=== PATIENT | male | born 1945 | race African-American/Black ===

== ENCOUNTER 2016-10-04 12:58 | Emergency (ER) | payer MEDICARE ==
[2016-10-04 13:27] LABS: #Basophils 0.1 thou/uL (0.0-0.2); #Lymphocytes 1.5 thou/uL (1.20-3.40); #Monocytes 0.5 thou/uL (0.11-0.59); #Neutrophils 6.4 thou/uL (1.40-6.50); %Basophils 0.6 % (0.0-1.0); %Eosinophils 0.4 % (0.0-10.0); %Lymphocytes 17.1 % (21.0-51.0); %Monocytes 6.3 % (0.0-10.0); %Neutrophils 75.5 % (42.0-75.0); Hemoglobin 14.6 g/dL (14.0-18.0); Mean Corpuscular HGB CONC 32.6 g/dL (32.0-36.0); Mean Corpuscular Hemoglobin 31.5 pg (27.0-31.0); Mean Corpuscular Volume 96.8 fl (80.0-94.0); Mean Platelet Volume 8.1 fL (7.4-10.4); Platelet Count 189 thou/uL (130-400); RBC Distribution Width 14.2 % (11.5-14.5); Red Blood Cell (RBC) Count 4.63 mill/uL (4.70-6.10); White Blood Cell (WBC) Count 8.5 thou/uL (4.8-10.8)
[2016-10-04] MEDS ORDERED: Sodium Chloride 0.9% 1,000 ML ONE (13:28)
[2016-10-04 13:46] LABS: ALT (SGPT) 15 U/L (0-55); AST (SGOT) 19 U/L (5-34); Albumin 3.5 g/dL (3.4-4.8); Alkaline Phosphatase 83 U/L (40-150); Anion Gap 15 mmol/L (10-20); BUN (Urea Nitrogen) 12 mg/dL (8.4-25.7); Bilirubin, Total 1.1 mg/dL (0.2-1.2); CK (CPK) 232 U/L (30-200); Calc. Creatinine Clearance 0 mL/min (70-130); Calcium 8.5 mg/dL (7.8-10.44); Carbon Dioxide 22 mmol/L (23-31); Chloride 107 mmol/L (98-107); Estimated GFR-MDRD 71; Globulin 4.3 g/dL (2.4-3.5); Glucose 218 mg/dL (83-110); Potassium 3.3 mmol/L (3.5-5.1); Protein, Total 7.8 g/dL (5.8-8.1); Sodium 141 mmol/L (136-145)
[2016-10-04 13:47] LABS: CKMB 3.1 ng/mL (0-6.6); Troponin I 0.058 ng/mL (< 0.028)
--- NOTE | 2016-10-04 14:08 | RAD ---
PORTABLE UPRIGHT FRONTAL CHEST RADIOGRAPH: DATE: 10/04/16. COMPARISON: None. HISTORY: Difficulty breathing, bilateral foot swelling. FINDINGS: Cardiac silhouette is enlarged. The patient is imaged in a lordotic position. There is increased d ensity in the right paratracheal region, nonspecific. There is elevation of the right hemidiaphragm . No lobar consolidation or alveolar edema. IMPRESSION: 1. Prominent cardiac silhouette which may be secondary to cardiac enlargement and/or portable techn ique and patient body habitus/patient positioning. 2. Elevated right hemidiaphragm. 3. Soft tissue density seen in the right paratracheal region. This could represent a right paratra cheal mass or vascular prominence. Thus, PA and lateral chest imaging with better inspiration advis ed. CODE T POS: [facility]
[2016-10-04] MEDS ORDERED: Furosemide 40 MG/4 ML VIAL ONE (15:35)
[2016-10-04 16:19] LABS: Bilirubin Negative (Negative); Blood, Urine Moderate (Negative); Clarity Clear (Clear); Glucose, Urine (Dipstick) Negative (Negative); Leukocyte Negative (Negative); Nitrite Negative (Negative); Protein, Urine (Dipstick) 30 mg/dL (Neg-Trace); pH, Urine 5.5 (5.0-9.0)
[2016-10-04 16:20] LABS: Specific Gravity, Urine 1.006 (1.002-1.036)
[2016-10-04 16:25] LABS: Squamous Epithelial None Seen HPF (0-3); WBC/HPF None Seen HPF (0-3)
[2016-10-04 16:26] LABS: Bacteria/HPF Rare-Few HPF (None Seen)
--- NOTE | 2016-10-04 16:42 | CT ---
CT PULMONARY ANGIOGRAM: Date: 10/04/16 HISTORY: Elevated D-Dimer. FINDINGS: The peripheral pulmonary arterial vasculature cannot be satisfactorily evaluated due to artifact and inadequate opacification. No filling defects are seen in the central pulmonary arteries to suggest central pulmonary embolism. No pericardial or left pleural effusions are noted. There is a tiny righ t pleural effusion with adjacent infiltrate/atelectatic change. No pneumothoraces are seen. There ar e degenerative changes in the spine. The heart is enlarged. IMPRESSION: No CT evidence of central pulmonary embolism. POS: [facility]
== END 2016-10-04 17:08 | disposition short-term general hospital (02) ==
LOC: NAV ERS 12:58
DX: I11.0 Hypertensive heart disease with heart failure (principal); I50.9 Heart failure, unspecified; E11.65 Type 2 diabetes mellitus with hyperglycemia; F17.210 Nicotine dependence, cigarettes, uncomplicated; Z79.899 Other long term (current) drug therapy
CPT/HCPCS: 36416; 71010; 71275; 80053; 81003; 81015; 82550; 82553; 83880; 84484; 85025; 85379; 93005; 96361; 96374; J1940; J7050

== ENCOUNTER 2016-10-17 07:33 | Outpatient (CLI) | payer MEDICARE ==
[2016-10-17 08:52] LABS: #Lymphocytes 1.7 thou/uL (1.20-3.40); #Monocytes 0.5 thou/uL (0.11-0.59); #Neutrophils 3.3 thou/uL (1.40-6.50); %Basophils 0.6 % (0.0-1.0); %Eosinophils 0.8 % (0.0-10.0); %Lymphocytes 30.9 % (21.0-51.0); %Monocytes 9.1 % (0.0-10.0); %Neutrophils 58.6 % (42.0-75.0); Hemoglobin 13.9 g/dL (14.0-18.0); Mean Corpuscular HGB CONC 32.7 g/dL (32.0-36.0); Mean Corpuscular Hemoglobin 31.3 pg (27.0-31.0); Mean Corpuscular Volume 95.9 fl (80.0-94.0); Mean Platelet Volume 9.2 fL (7.4-10.4); Platelet Count 200 thou/uL (130-400); RBC Distribution Width 13.4 % (11.5-14.5); Red Blood Cell (RBC) Count 4.42 mill/uL (4.70-6.10); White Blood Cell (WBC) Count 5.6 thou/uL (4.8-10.8)
[2016-10-17 09:02] LABS: ALT (SGPT) 19 U/L (8-55); AST (SGOT) 21 U/L (5-34); Albumin 3.3 g/dL (3.4-4.8); Alkaline Phosphatase 70 U/L (40-150); Anion Gap 13 mmol/L (10-20); BUN (Urea Nitrogen) 11 mg/dL (8.4-25.7); Bilirubin, Total 0.6 mg/dL (0.2-1.2); Calc. Creatinine Clearance 0 mL/min (70-130); Calcium 8.7 mg/dL (7.8-10.44); Carbon Dioxide 24 mmol/L (23-31); Cardiac Risk 2.9 (Less than 4.5); Chloride 106 mmol/L (98-107); Cholesterol 114 mg/dL (< 200 Desired); Estimated GFR-MDRD Greater than 90; Globulin 3.1 g/dL (2.4-3.5); Glucose 101 mg/dL (83-110); HDL Cholesterol 39 mg/dL (>60 Neg Risk); LDL Cholesterol, Calculated 64 mg/dL; Protein, Total 6.4 g/dL (5.8-8.1); Sodium 139 mmol/L (136-145); Triglycerides 57 mg/dL (Less than 150)
== END 2016-10-17 07:34 | disposition home or self-care (01) ==
LOC: NAV LABSP 07:33
PROVIDERS: ATTEND Family Medicine
DX: Z12.5 Encounter for screening for malignant neoplasm of prostate (principal); K21.0 Gastro-esophageal reflux disease with esophagitis; E11.9 Type 2 diabetes mellitus without complications; I10 Essential (primary) hypertension; I50.9 Heart failure, unspecified
CPT/HCPCS: 36415; 80053; 80061; 83036; 85025; G0103

== ENCOUNTER 2016-10-22 07:48 | Outpatient (CLI) | payer MEDICARE ==
[2016-10-22 10:12] LABS: Anion Gap 14 mmol/L (10-20); BUN (Urea Nitrogen) 10 mg/dL (8.4-25.7); Calc. Creatinine Clearance 0 mL/min (70-130); Calcium 8.7 mg/dL (7.8-10.44); Carbon Dioxide 23 mmol/L (23-31); Chloride 108 mmol/L (98-107); Estimated GFR-MDRD Greater than 90; Glucose 99 mg/dL (83-110); Potassium 3.8 mmol/L (3.5-5.1); Sodium 141 mmol/L (136-145)
== END 2016-10-22 07:49 | disposition home or self-care (01) ==
LOC: NAV LABSP 07:48
PROVIDERS: ATTEND Family Medicine
DX: I11.0 Hypertensive heart disease with heart failure (principal); I50.9 Heart failure, unspecified; E11.9 Type 2 diabetes mellitus without complications; K21.9 Gastro-esophageal reflux disease without esophagitis
CPT/HCPCS: 36415; 80048

== ENCOUNTER 2016-10-30 08:25 | Outpatient (CLI) | payer MEDICARE ==
[2016-10-30 10:53] LABS: Blood, Urine Moderate (Negative); Clarity Clear (Clear); Glucose, Urine (Dipstick) Negative (Negative); Leukocyte Negative (Negative); Nitrite Negative (Negative); Protein, Urine (Dipstick) 30 mg/dL (Neg-Trace); Specific Gravity, Urine 1.025 (1.005-1.030); Urobilinogen > or = 8.0 mg/dL (0.2-1.0); pH, Urine 6.5 (5.0-9.0)
[2016-10-30 11:26] LABS: Bilirubin Negative (Negative); Icto Negative (Negative)
[2016-10-30 11:27] LABS: Bacteria/HPF Rare-Few HPF (None Seen); RBC/HPF 21-50 HPF (0-3); Squamous Epithelial 0-3 HPF (0-3); WBC/HPF 0-3 HPF (0-3)
== END 2016-10-30 08:26 | disposition home or self-care (01) ==
LOC: NAV LABSP 08:25
PROVIDERS: ATTEND Family Medicine
DX: R32 Unspecified urinary incontinence (principal)
CPT/HCPCS: 81001; 87086

== ENCOUNTER 2016-11-19 07:46 | Outpatient (CLI) | payer MEDICARE ==
[2016-11-19 08:19] LABS: ALT (SGPT) 18 U/L (8-55); AST (SGOT) 17 U/L (5-34); Albumin 3.8 g/dL (3.4-4.8); Alkaline Phosphatase 82 U/L (40-150); Anion Gap 17 mmol/L (10-20); BUN (Urea Nitrogen) 18 mg/dL (8.4-25.7); Bilirubin, Total 0.5 mg/dL (0.2-1.2); Calc. Creatinine Clearance 0 mL/min (70-130); Calcium 8.9 mg/dL (7.8-10.44); Carbon Dioxide 23 mmol/L (23-31); Chloride 106 mmol/L (98-107); Estimated GFR-MDRD Greater than 90; Globulin 3.4 g/dL (2.4-3.5); Glucose 93 mg/dL (83-110); Potassium 3.9 mmol/L (3.5-5.1); Protein, Total 7.2 g/dL (5.8-8.1); Sodium 142 mmol/L (136-145)
[2016-11-19 08:21] LABS: #Basophils 0.1 thou/uL (0.0-0.2); #Lymphocytes 2.4 thou/uL (1.20-3.40); #Monocytes 0.7 thou/uL (0.11-0.59); #Neutrophils 4.7 thou/uL (1.40-6.50); %Basophils 0.9 % (0.0-1.0); %Eosinophils 0.5 % (0.0-10.0); %Lymphocytes 30.1 % (21.0-51.0); %Monocytes 8.6 % (0.0-10.0); Hemoglobin 14.8 g/dL (14.0-18.0); Mean Corpuscular HGB CONC 33.2 g/dL (32.0-36.0); Mean Corpuscular Hemoglobin 30.4 pg (27.0-31.0); Mean Corpuscular Volume 91.5 fl (80.0-94.0); Mean Platelet Volume 7.3 fL (7.4-10.4); Platelet Count 201 thou/uL (130-400); RBC Distribution Width 12.3 % (11.5-14.5); Red Blood Cell (RBC) Count 4.87 mill/uL (4.70-6.10); White Blood Cell (WBC) Count 7.9 thou/uL (4.8-10.8)
== END 2016-11-19 07:47 | disposition home or self-care (01) ==
LOC: NAV LABSP 07:46
PROVIDERS: ATTEND Family Medicine
DX: I50.9 Heart failure, unspecified (principal); E11.9 Type 2 diabetes mellitus without complications
CPT/HCPCS: 36415; 80053; 85025

== ENCOUNTER 2018-03-18 17:24 | Emergency (ER) | payer MEDICARE ==
[2018-03-18 19:28] LABS: #Basophils 0.1 thou/uL (0.0-0.2); #Lymphocytes 2.2 thou/uL (1.20-3.40); #Monocytes 0.7 thou/uL (0.11-0.59); #Neutrophils 5.7 thou/uL (1.40-6.50); %Basophils 1.2 % (0.0-1.0); %Eosinophils 0.2 % (0.0-10.0); %Monocytes 8.1 % (0.0-10.0); %Neutrophils 65.4 % (42.0-75.0); Hemoglobin 13.7 g/dL (14.0-18.0); Mean Corpuscular HGB CONC 32.3 g/dL (32.0-36.0); Mean Corpuscular Hemoglobin 30.4 pg (27.0-31.0); Mean Corpuscular Volume 94.3 fL (78.0-98.0); Mean Platelet Volume 7.6 fL (7.4-10.4); Platelet Count 273 thou/uL (130-400); RBC Distribution Width 13.1 % (11.5-14.5); Red Blood Cell (RBC) Count 4.52 mill/uL (4.70-6.10); White Blood Cell (WBC) Count 8.8 thou/uL (4.8-10.8)
[2018-03-18 19:54] LABS: CKMB 1.1 ng/mL (0-6.6)
--- NOTE | 2018-03-18 20:12 | CT ---
CT OF HEAD NONCONTRAST: 03/18/18 INDICATION: Altered mental status. FINDINGS: There is mild prominence of ventricular system due to parenchymal volume loss. There is mild chronic microvascular ischemic disease. No intracranial hemorrhage, mass effect or midline shift. No acute fl uid level of the paranasal sinuses. IMPRESSION: No acute intracranial abnormalities. POS: [facility]
[2018-03-18 20:14] LABS: ALT (SGPT) 11 U/L (8-55); AST (SGOT) 13 U/L (5-34); Albumin 4.3 g/dL (3.4-4.8); Alkaline Phosphatase 64 U/L (40-150); Anion Gap 16 mmol/L (10-20); BUN (Urea Nitrogen) 16 mg/dL (8.4-25.7); Bilirubin, Total 0.4 mg/dL (0.2-1.2); Calc. Creatinine Clearance 0 mL/min (70-130); Calcium 9.7 mg/dL (7.8-10.44); Carbon Dioxide 25 mmol/L (23-31); Chloride 104 mmol/L (98-107); Estimated GFR-MDRD 60; Globulin 3.5 g/dL (2.4-3.5); Glucose 140 mg/dL (83-110); Potassium 4.9 mmol/L (3.5-5.1); Protein, Total 7.8 g/dL (5.8-8.1); Sodium 140 mmol/L (136-145)
[2018-03-18] MEDS ORDERED: Sodium Chloride 0.9% 500 ML ONE (20:16)
[2018-03-18 20:30] LABS: Bilirubin Moderate (Negative); Blood, Urine Trace (Negative); Clarity Clear (Clear); Glucose, Urine (Dipstick) Negative (Negative); Leukocyte Negative (Negative); Nitrite Negative (Negative); Protein, Urine (Dipstick) 100 mg/dL (Neg-Trace)
[2018-03-18 20:38] LABS: Specific Gravity, Urine Greater/Equal 1.030 (1.005-1.030)
[2018-03-18 20:48] LABS: RBC/HPF 0-3 HPF (0-3)
[2018-03-18 20:49] LABS: Bacteria/HPF Rare-Few HPF (None Seen); WBC/HPF 0-3 HPF (0-3)
[2018-03-18 20:50] LABS: Squamous Epithelial 21-50 HPF (0-3)
== END 2018-03-18 21:12 | disposition short-term general hospital (02) ==
LOC: NAV ERS 17:24
DX: R41.82 Altered mental status, unspecified (principal); E11.9 Type 2 diabetes mellitus without complications; I10 Essential (primary) hypertension; F03.90 Unspecified dementia, unspecified severity, without behavioral disturbance, psychotic disturbance, mood disturbance, and anxiety; F17.210 Nicotine dependence, cigarettes, uncomplicated; Z79.84 Long term (current) use of oral hypoglycemic drugs; Z79.899 Other long term (current) drug therapy; Z86.73 Personal history of transient ischemic attack (TIA), and cerebral infarction without residual deficits
CPT/HCPCS: 70450; 80053; 81003; 81015; 82553; 83605; 84484; 85025; 93005; 96360; J7050

== ENCOUNTER 2018-03-19 23:11 | Emergency (ER) | payer MEDICARE ==
[2018-03-20 00:37] LABS: #Basophils 0.1 thou/uL (0.0-0.2); #Lymphocytes 1.2 thou/uL (1.20-3.40); #Monocytes 0.7 thou/uL (0.11-0.59); #Neutrophils 10.9 thou/uL (1.40-6.50); %Basophils 0.8 % (0.0-1.0); %Lymphocytes 8.9 % (21.0-51.0); %Monocytes 5.4 % (0.0-10.0); %Neutrophils 84.9 % (42.0-75.0); Hemoglobin 13.7 g/dL (14.0-18.0); Mean Corpuscular HGB CONC 32.8 g/dL (32.0-36.0); Mean Corpuscular Hemoglobin 30.6 pg (27.0-31.0); Mean Corpuscular Volume 93.3 fL (78.0-98.0); Mean Platelet Volume 8.3 fL (7.4-10.4); Platelet Count 262 thou/uL (130-400); RBC Distribution Width 13.5 % (11.5-14.5); Red Blood Cell (RBC) Count 4.46 mill/uL (4.70-6.10); White Blood Cell (WBC) Count 12.9 thou/uL (4.8-10.8)
[2018-03-20 01:40] LABS: ALT (SGPT) 12 U/L (8-55); AST (SGOT) 16 U/L (5-34); Albumin 4.4 g/dL (3.4-4.8); Alkaline Phosphatase 62 U/L (40-150); Anion Gap 14 mmol/L (10-20); BUN (Urea Nitrogen) 17 mg/dL (8.4-25.7); Bilirubin, Total 0.5 mg/dL (0.2-1.2); Calc. Creatinine Clearance 0 mL/min (70-130); Calcium 9.9 mg/dL (7.8-10.44); Carbon Dioxide 23 mmol/L (23-31); Chloride 103 mmol/L (98-107); Estimated GFR-MDRD 57; Globulin 3.6 g/dL (2.4-3.5); Glucose 189 mg/dL (83-110); Potassium 4.2 mmol/L (3.5-5.1); Sodium 136 mmol/L (136-145)
[2018-03-20] MEDS ORDERED: Mag-Al Plus 1200 MG/1200 MG/120 MG/30 ML UDCUP ONE (02:25)
== END 2018-03-20 02:40 | disposition short-term general hospital (02) ==
LOC: NAV ERS 23:11
DX: R41.82 Altered mental status, unspecified (principal); E11.9 Type 2 diabetes mellitus without complications; I10 Essential (primary) hypertension; F17.210 Nicotine dependence, cigarettes, uncomplicated; F03.90 Unspecified dementia, unspecified severity, without behavioral disturbance, psychotic disturbance, mood disturbance, and anxiety; Z86.73 Personal history of transient ischemic attack (TIA), and cerebral infarction without residual deficits; Z79.84 Long term (current) use of oral hypoglycemic drugs; Z79.899 Other long term (current) drug therapy
CPT/HCPCS: 36416; 80053; 84443; 85025

== ENCOUNTER 2019-02-25 11:44 | Emergency (ER) | payer MEDICARE ==
[2019-02-25 12:22] LABS: #Basophils 0.1 thou/uL (0.0-0.2); #Eosinphils 0.1 thou/uL (0.0-0.7); #Lymphocytes 2.2 thou/uL (1.20-3.40); #Monocytes 0.6 thou/uL (0.11-0.59); #Neutrophils 6.8 thou/uL (1.40-6.50); %Basophils 0.7 % (0.0-1.0); %Eosinophils 0.6 % (0.0-10.0); %Monocytes 5.8 % (0.0-10.0); %Neutrophils 69.8 % (42.0-75.0); Hemoglobin 12.6 g/dL (14.0-18.0); Mean Corpuscular HGB CONC 32.8 g/dL (32.0-36.0); Mean Corpuscular Hemoglobin 29.8 pg (27.0-31.0); Mean Corpuscular Volume 91.1 fL (78.0-98.0); Mean Platelet Volume 6.4 fL (7.4-10.4); Platelet Count 294 thou/uL (130-400); RBC Distribution Width 13.3 % (11.5-14.5); Red Blood Cell (RBC) Count 4.22 mill/uL (4.70-6.10); White Blood Cell (WBC) Count 9.7 thou/uL (4.8-10.8)
--- NOTE | 2019-02-25 12:24 | RAD ---
XR Pelvis AP STANDARD History: Trauma Comparison: None. Findings: Dense vascular calcifications. Ossification of the right iliopsoas tendon. Capsular calcifi cations of the left hip. High-grade enthesopathic changes of both greater trochanters. Advanced degenerative disease both SI j oints and moderate degenerative disease of the pubic symphysis. Enthesopathy of the ischium. Impression: Degenerative changes. No acute osseous abnormality.
[2019-02-25 12:36] LABS: ALT (SGPT) 11 U/L (8-55); AST (SGOT) 12 U/L (5-34); Albumin 4.1 g/dL (3.4-4.8); Alkaline Phosphatase 72 U/L (40-150); Anion Gap 17 mmol/L (10-20); BUN (Urea Nitrogen) 32 mg/dL (8.4-25.7); Bilirubin, Total 0.4 mg/dL (0.2-1.2); Calc. Creatinine Clearance 0 mL/min (70-130); Calcium 9.3 mg/dL (7.8-10.44); Carbon Dioxide 22 mmol/L (23-31); Chloride 103 mmol/L (98-107); Estimated GFR-MDRD 76; Globulin 3.8 g/dL (2.4-3.5); Glucose 167 mg/dL (83-110); Potassium 3.3 mmol/L (3.5-5.1); Protein, Total 7.9 g/dL (5.8-8.1); Sodium 139 mmol/L (136-145)
--- NOTE | 2019-02-25 13:38 | RAD ---
LEFT FEMUR 2 VIEWS: HISTORY: Pain. The patient fell yesterday. Trauma. FINDINGS: There is enthesopathic change involving the mid lateral diaphysis of the left femur. Fracture, corti wojciech irregularity is not appreciated. On the lateral aspect of the diaphysis, there is periosteal jillian nge with remodeling and subtle lucency. On the oblique projection there is prominent bony excrescence . Nonspecific calcification in the medial soft tissues. Vascular calcifications are identified. IMPRESSION: Nonspecific calcifications of the medial soft tissues as well as the lateral aspect of the diaphysis. 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 Examination reviewed in conjunction with Dr. Levine. POS: [facility]
== END 2019-02-25 14:44 | disposition home or self-care (01) ==
LOC: NAV ERS 11:44
DX: I48.91 Unspecified atrial fibrillation (principal); E87.6 Hypokalemia; M25.552 Pain in left hip; G89.18 Other acute postprocedural pain; R10.2 Pelvic and perineal pain; E11.9 Type 2 diabetes mellitus without complications; I10 Essential (primary) hypertension; F03.90 Unspecified dementia, unspecified severity, without behavioral disturbance, psychotic disturbance, mood disturbance, and anxiety; E78.5 Hyperlipidemia, unspecified; Z86.73 Personal history of transient ischemic attack (TIA), and cerebral infarction without residual deficits; F20.9 Schizophrenia, unspecified; Z79.899 Other long term (current) drug therapy; Z79.84 Long term (current) use of oral hypoglycemic drugs
CPT/HCPCS: 72170; 80053; 84484; 85025; 93005; 96374

== ENCOUNTER 2019-04-26 11:47 | Outpatient (CLI) | payer MEDICARE ==
--- NOTE | 2019-04-26 12:12 | RAD ---
EXAM: Chest PA and lateral: HISTORY: Dyspnea on exertion COMPARISON: 10/04/2016 FINDINGS: Heart: Normal cardiac silhouette Aorta: Atherosclerosis of the aortic knob. Slight elongation of the descending thoracic aorta Pulmonary vessels: Normal Costophrenic angles: Costophrenic angles are clear. Lungs: Diffuse interstitial and alveolar opacities. Elevation right hemidiaphragm Pneumothorax: No pneumothorax Osseous structures: No osseous abnormalities IMPRESSION: Diffuse interstitial and alveolar opacities. Correlate for edema or infiltrate.
== END 2019-04-26 11:48 | disposition home or self-care (01) ==
LOC: NAV RAD 11:47
PROVIDERS: ATTEND Nurse Practitioner Adult Health
DX: R06.09 Other forms of dyspnea (principal); R91.8 Other nonspecific abnormal finding of lung field
CPT/HCPCS: 71046; 71275; 81003; 81015; 83605; 83880; 84484; 87040; 87086; 93005; J0456; J0696; J1940; J3490; J7050; Q9967

== ENCOUNTER 2019-04-26 16:31 | Emergency (ER) | payer MEDICARE ==
[~2019-04-26 16:31] MED LIST: Iopamidol 370 76% 100 ML VIAL ONE
[2019-04-26] MEDS ORDERED: Furosemide 40 MG/4 ML VIAL ONE (17:05)
[2019-04-26 17:23] LABS: #Basophils 0.1 thou/uL (0.0-0.2); #Lymphocytes 1.9 thou/uL (1.20-3.40); #Monocytes 0.9 thou/uL (0.11-0.59); %Basophils 1.1 % (0.0-1.0); %Eosinophils 0.3 % (0.0-10.0); %Monocytes 8.2 % (0.0-10.0); %Neutrophils 73.3 % (42.0-75.0); Hemoglobin 11.5 g/dL (14.0-18.0); Mean Corpuscular HGB CONC 32.9 g/dL (32.0-36.0); Mean Corpuscular Hemoglobin 30.3 pg (27.0-31.0); Platelet Count 283 thou/uL (130-400); RBC Distribution Width 13.9 % (11.5-14.5); Red Blood Cell (RBC) Count 3.79 mill/uL (4.70-6.10); White Blood Cell (WBC) Count 10.9 thou/uL (4.8-10.8)
[2019-04-26 17:35] LABS: ALT (SGPT) 28 U/L (8-55); AST (SGOT) 27 U/L (5-34); Alkaline Phosphatase 109 U/L (40-110); Anion Gap 20 mmol/L (10-20); BUN (Urea Nitrogen) 16 mg/dL (8.4-25.7); Bilirubin, Total 0.7 mg/dL (0.2-1.2); Calc. Creatinine Clearance 0 mL/min (70-130); Calcium 8.4 mg/dL (7.8-10.44); Carbon Dioxide 20 mmol/L (23-31); Chloride 100 mmol/L (98-107); Estimated GFR-MDRD 70; Globulin 3.8 g/dL (2.4-3.5); Glucose 152 mg/dL (83-110); Potassium 3.6 mmol/L (3.5-5.1); Protein, Total 7.8 g/dL (5.8-8.1); Sodium 136 mmol/L (136-145)
[2019-04-26] MEDS ORDERED: Sodium Chloride 0.9% 100 ML ONE (18:53)
[2019-04-26] MEDS ORDERED: cefTRIAXone\\ROCEPHIN 2 GM VIAL ONE (18:53)
[2019-04-26 19:41] LABS: Bilirubin Negative (Negative); Blood, Urine Trace (Negative); Clarity Clear (Clear); Glucose, Urine (Dipstick) Negative (Negative); Leukocyte Negative (Negative); Nitrite Negative (Negative); Protein, Urine (Dipstick) Negative (Neg-Trace); Urobilinogen 0.2 mg/dL (Less than 2)
[2019-04-26 19:48] LABS: RBC/HPF 0-3 HPF (0-3); Squamous Epithelial 0-3 HPF (0-3)
--- NOTE | 2019-04-26 19:52 | CT ---
CT arteriogram chest with IV contrast and 3-D imaging HISTORY: Chest pain. Dyspnea. Hemoptysis. FINDINGS: There is good contrast opacification the central pulmonary arteries and the thoracic aorta with normal branching of the great vessels at the aortic arch. Dense bilateral upper lobe predominantly central infiltrates are present. Airways remain patent. Atelectasis of the right barratte operator ior lung base with elevation of the right hemidiaphragm. No pleural fluid or pneumothorax. No enlarged lymph nodes are evident. IMPRESSION: No CT evidence of pulmonary embolus. Bilateral upper lobe central airspace disease. A nonspecific finding. In the setting of hemoptysis, t his could represent blood, although the origin is not evident. Inflammation/infection must also be considered.
[2019-04-26] MEDS ORDERED: Azithromycin 500 MG VIAL ONE (23:13)
[2019-04-26] MEDS ORDERED: Sodium Chloride 0.9% 250 ML 250 ML ONE (23:13)
== END 2019-04-26 20:39 | disposition short-term general hospital (02) ==
LOC: NAV ERS 16:31
DX: A41.9 Sepsis, unspecified organism (principal); R91.8 Other nonspecific abnormal finding of lung field; E11.9 Type 2 diabetes mellitus without complications; I10 Essential (primary) hypertension; E78.5 Hyperlipidemia, unspecified; Z79.899 Other long term (current) drug therapy
CPT/HCPCS: 71275; 81003; 81015; 83605; 83880; 84484; 87040; 87086; 93005; J0456; J0696; J1940; J3490; J7050

== ENCOUNTER 2019-05-05 15:10 | Inpatient (IN) | payer MEDICARE ==
[2019-05-05 15:25] VITALS: BMI 25.9
[2019-05-05] MEDS ORDERED: Acetaminophen 325 MG TAB PO PRN (18:47)
[2019-05-05] MEDS: metFORMIN 500 MG TAB PO SCH (19:59)
[2019-05-05] MEDS: Apixaban 5 MG TAB PO SCH (19:59)
[2019-05-05] MEDS: clonazePAM 0.5 MG TAB PO SCH (19:59)
[2019-05-05] MEDS: Metoprolol Tartrate 50 MG TAB PO SCH (19:59)
[2019-05-05] MEDS: Carvedilol 6.25 MG TAB PO SCH (19:59)
[2019-05-06] MEDS: Furosemide 40 MG TAB PO SCH (08:06)
[2019-05-06] MEDS: Atorvastatin Calcium 20 MG TAB PO SCH (09:06)
[2019-05-06] MEDS: Amiodarone 200 MG TAB PO SCH (09:06)
[2019-05-06] MEDS: clonazePAM 0.5 MG TAB PO SCH ×2 (09:07→19:49)
[2019-05-06] MEDS: Carvedilol 6.25 MG TAB PO SCH ×2 (09:07→19:49)
[2019-05-06] MEDS: Pioglitazone HCl 15 MG TAB PO SCH (09:07)
[2019-05-06] MEDS: metFORMIN 500 MG TAB PO SCH ×2 (09:08→19:50)
[2019-05-06] MEDS: Amlodipine 5 MG TAB PO SCH (09:08)
[2019-05-06] MEDS: Metoprolol Tartrate 50 MG TAB PO SCH (09:08)
[2019-05-06] MEDS: Losartan 25 MG TAB PO SCH (09:08)
[2019-05-06] MEDS: Apixaban 5 MG TAB PO SCH ×2 (09:08→19:49)
[2019-05-06] MEDS ORDERED: FLU VACC QS2019-20(6MOS UP)/PF 60 MCG/0.5 ML SYRINGE IM ONE (16:30)
[2019-05-06] MEDS ORDERED: Aripiprazole 10 MG TAB PO SCH (16:45)
--- NOTE | 2019-05-06 19:20 | HP ---
CHIEF COMPLAINT: Recent admission to the hospital for pneumonia, here for therapy. BRIEF HISTORY: This is a pleasant 74-year-old male, who was admitted to [facility] on April 26 with productive cough and shortness of breath. His workup was consistent with bilateral upper lobe airway disease suggesting pneumonitis and was treated with IV antibiotics. He also was hypoxemic requiring oxygen as well as breathing treatments. He was seen by Pulmonary and he was slowly transitioned to oral antibiotics. He was weak and was felt to be a candidate for inpatient rehabilitation, so transferred here. Currently, the patient is resting in bed and denies any concerns. His son is in the room. He apparently has been having some combative behavior and this happened in the past when Dr. Santana started him on Abilify, which really helped. For some reason, he was taken off the Abilify and now son is noticing the same issues. I advised him that I will review the office records and get him back on the Abilify. Currently, he is off the oxygen and he is saturating well. The patient denies any chest pain or shortness of breath, and other than weakness, no other concerns or questions. PAST MEDICAL HISTORY: 1. Diabetes mellitus type 2. 2. Hypertension. 3. Dyslipidemia. 4. Gastroesophageal reflux disease. 5. Atrial fibrillation. 6. Chronic systolic congestive heart failure. 7. Dementia. PAST SURGICAL HISTORY: Exploratory laparotomy. PSYCHOSOCIAL HISTORY: Smoker, but just recently. Used to drink alcohol 1 to 2 beers. No IV drug abuse. FAMILY HISTORY: Noncontributory to current admission. REVIEW OF SYSTEMS: CARDIOVASCULAR: Denies any chest pain, shortness of breath, PND, orthopnea, or pedal edema. RESPIRATORY: Improving cough and shortness of breath. Denies any hemoptysis. GASTROINTESTINAL: Denies any nausea, vomiting, diarrhea, constipation, hematemesis, melena, or hematochezia. GENITOURINARY: Denies any frequency, urgency, dysuria, or hematuria. CENTRAL NERVOUS SYSTEM: Generalized weakness. HEENT: Denies any difficulty with speech, vision, hearing, or swallowing. SKIN: Denies any rash. DISCHARGE MEDICATIONS: He has been transferred here on the following medications; 1. Tylenol 650 p.o. q.4 p.r.n. 2. DuoNeb 3 mL q.6 p.r.n. 3. Cordarone 200 mg daily. 4. Norvasc 10 mg daily. 5. Eliquis 5 mg b.i.d. 6. Lipitor 20 mg daily. 7. Carvedilol 6.25 b.i.d. 8. Klonopin 0.5 mg b.i.d. 9. Lasix 40 daily. 10. Cozaar 25 daily. 11. Metformin 500 b.i.d. 12. Lopressor 100 mg b.i.d. 13. Pantoprazole 40 daily. 14. Actos 30 daily. I am not sure why he is on both metoprolol and carvedilol. PHYSICAL EXAMINATION: GENERAL: A 74-year-old male, resting comfortably, and in no apparent distress. His son is in the room. He is awake, alert and responsive. VITAL SIGNS: He is afebrile. Heart rate 69, respirations 18, oxygen saturation 95% on room air, and blood pressure 122/68. HEENT: Normocephalic and atraumatic. Pupils equally reactive to light and accommodation. External muscles intact. No JVD, thyromegaly, cervical lymphadenopathy, or throat exudates. No carotid bruits. CARDIOVASCULAR: S1 and S2 plus. Irregularly irregular. RESPIRATORY: Normal vesicular breath sounds heard in all lung bateman. Occasional rhonchi. ABDOMEN: Soft, nontender. Bowel sounds heard in all quadrants. EXTREMITIES: Without cyanosis or clubbing. Peripheral pulses are palpable. CENTRAL NERVOUS SYSTEM: Grossly nonfocal. LABORATORY DATA: Blood sugars are 117, 106, and 103. IMPRESSION: 1. Resolving pneumonitis. 2. Chronic systolic congestive heart failure. 3. Diabetes mellitus type 2. 4. Hypertension. 5. Dyslipidemia. 6. Dementia. 7. Resolved acute hypoxemic respiratory failure and atrial fibrillation. PLAN: 1. Resume Abilify. 2. Continue discharge medications, but we will review why he is on carvedilol and metoprolol. 3. Breathing treatments as needed. 4. PT and OT to eval and treat. 5. 1800 calorie heart healthy ADA diet. 6. Accu-Cheks with sliding scale coverage. 7. DVT prophylaxis - the patient is on Eliquis. 8. Decubitus precautions. 9. Stress ulcer prophylaxis. 10. Recheck CBC and BMP in the morning. Discussed with the patient and son in detail. All questions answered. Job ID: [id number]
[2019-05-07 05:30] LABS: #Lymphocytes 1.6 thou/uL (1.20-3.40); #Monocytes 0.5 thou/uL (0.11-0.59); #Neutrophils 3.8 thou/uL (1.40-6.50); %Basophils 0.8 % (0.0-1.0); %Eosinophils 0.6 % (0.0-10.0); %Monocytes 8.5 % (0.0-10.0); %Neutrophils 64.1 % (42.0-75.0); Hemoglobin 9.5 g/dL (14.0-18.0); Mean Corpuscular HGB CONC 32.1 g/dL (32.0-36.0); Mean Corpuscular Hemoglobin 29.1 pg (27.0-31.0); Mean Corpuscular Volume 90.7 fL (78.0-98.0); Mean Platelet Volume 5.6 fL (7.4-10.4); Platelet Count 431 thou/uL (130-400); RBC Distribution Width 13.5 % (11.5-14.5); Red Blood Cell (RBC) Count 3.27 mill/uL (4.70-6.10)
[2019-05-07 05:51] LABS: Anion Gap 14 mmol/L (10-20); BUN (Urea Nitrogen) 11 mg/dL (8.4-25.7); Calc. Creatinine Clearance 103 mL/min (70-130); Calcium 8.7 mg/dL (7.8-10.44); Carbon Dioxide 27 mmol/L (23-31); Chloride 101 mmol/L (98-107); Estimated GFR-MDRD Greater than 90; Glucose 95 mg/dL (83-110); Potassium 3.6 mmol/L (3.5-5.1); Sodium 138 mmol/L (136-145)
[2019-05-07] MEDS: Furosemide 40 MG TAB PO SCH (08:17)
[2019-05-07] MEDS: clonazePAM 0.5 MG TAB PO SCH ×2 (08:18→20:02)
[2019-05-07] MEDS: Losartan 25 MG TAB PO SCH (08:18)
[2019-05-07] MEDS: Aripiprazole 10 MG TAB PO SCH (08:19)
[2019-05-07] MEDS: Apixaban 5 MG TAB PO SCH ×2 (08:21→20:03)
[2019-05-07] MEDS: Pioglitazone HCl 15 MG TAB PO SCH (08:22)
[2019-05-07] MEDS: metFORMIN 500 MG TAB PO SCH ×2 (08:22→20:03)
[2019-05-07] MEDS: Atorvastatin Calcium 20 MG TAB PO SCH (08:23)
[2019-05-07] MEDS: Amiodarone 200 MG TAB PO SCH (08:23)
[2019-05-07] MEDS: Carvedilol 6.25 MG TAB PO SCH ×2 (08:23→20:03)
[2019-05-07] MEDS: Amlodipine 5 MG TAB PO SCH (08:25)
--- NOTE | 2019-05-07 09:30 | PRG ---
DATE OF SERVICE: 05/07/2019 SUBJECTIVE: Mr. Hickey is up in his chair and participating with therapy. He denies any questions or concerns. No family at bedside. He was started on Abilify 5 mg daily. Reviewing his old records, he was on 20 mg daily, but that was discontinued sometime in November, and I did not want to get him back on such a high dose from the beginning, so we will titrate him up as needed. OBJECTIVE: VITAL SIGNS: He is afebrile, heart rate 69, respirations 18, oxygen saturation 94% on room air, and blood pressure 130/68. CARDIOVASCULAR SYSTEM: S1 and S2 plus. RESPIRATORY SYSTEM: Normal vesicular breath sounds with occasional rhonchi. ABDOMEN: Soft and nontender. Bowel sounds heard in all quadrants. EXTREMITIES: Without cyanosis or clubbing. Peripheral pulses are palpable. CENTRAL NERVOUS SYSTEM: Grossly nonfocal. He is awake and responsive, but pleasantly confused. LABORATORY VALUES: White count of 6, H and H are 9.5 and 29.6. Sodium 138, potassium 3.6, BUN and creatinine are 11 and 0.84. Blood sugars are 117, 106, 103, and 128. IMPRESSION: 1. Resolving bacterial pneumonitis. 2. Resolved acute hypoxemic respiratory failure. 3. Possible chronic obstructive pulmonary disease. 4. Chronic systolic congestive heart failure. 5. Hypertension. 6. Dyslipidemia. 7. Diabetes mellitus, type 2. 8. Atrial fibrillation. 9. Dementia. PLAN: 1. Continue current medications including Abilify 5 mg daily. 2. 1800 calorie heart healthy ADA diet. 3. Accu-Cheks with sliding scale coverage. 4. Monitor heart rate and rhythm. 5. DVT prophylaxis-he is on Eliquis. 6. Decubitus precaution. 7. Stress ulcer prophylaxis. 8. Continue PT/OT. 9. Monitor respiratory status. 10. Routine laboratory values. 11. Discussed with the patient and nursing in detail. All questions answered. Job ID: [id number]
[2019-05-08] MEDS: Furosemide 40 MG TAB PO SCH (08:05)
[2019-05-08] MEDS: Pioglitazone HCl 15 MG TAB PO SCH (08:06)
[2019-05-08] MEDS: metFORMIN 500 MG TAB PO SCH ×2 (08:06→19:42)
[2019-05-08] MEDS: Losartan 25 MG TAB PO SCH (08:08)
[2019-05-08] MEDS: Apixaban 5 MG TAB PO SCH ×2 (08:08→19:42)
[2019-05-08] MEDS: Amiodarone 200 MG TAB PO SCH (08:08)
[2019-05-08] MEDS: Amlodipine 5 MG TAB PO SCH (08:09)
[2019-05-08] MEDS: Carvedilol 6.25 MG TAB PO SCH ×2 (08:10→19:42)
[2019-05-08] MEDS: clonazePAM 0.5 MG TAB PO SCH ×2 (08:15→19:42)
[2019-05-08] MEDS: Aripiprazole 10 MG TAB PO SCH (08:15)
[2019-05-08] MEDS: Atorvastatin Calcium 20 MG TAB PO SCH (08:17)
--- NOTE | 2019-05-08 15:41 | PRG ---
DATE OF SERVICE: 05/08/2019 SUBJECTIVE: Mr. Hickey is doing well. Denies any complaints. Resting comfortably. Discussed with Nursing. OBJECTIVE: VITAL SIGNS: He is afebrile, heart rate 78, respirations 16, oxygen saturation 96% on room air, blood pressure 123/72. CARDIOVASCULAR SYSTEM: S1 and S2 plus. RESPIRATORY SYSTEM: Normal vesicular breath sounds. ABDOMEN: Soft. Nontender. Bowel sounds heard in all quadrants. EXTREMITIES: Without cyanosis or clubbing. CENTRAL NERVOUS SYSTEM: Awake and pleasantly confused. Grossly nonfocal except for deconditioning. LABORATORY DATA: Blood sugars are 146, 124, 184, 120, and 125. IMPRESSION: 1. Resolving pneumonitis. 2. Resolved acute hypoxemic respiratory failure. 3. Diabetes mellitus type 2. 4. Dementia. 5. Hypertension. 6. Dyslipidemia. 7. Atrial fibrillation. 8. Chronic systolic congestive heart failure. PLAN: 1. Continue current medications. 2. 1800 calorie heart healthy ADA diet. 3. Accu-Cheks with sliding scale coverage. 4. Monitor blood pressure and adjust medications as needed. 5. Monitor heart rate and rhythm. 6. DVT prophylaxis-the patient is on Eliquis. 7. Decubitus precautions. 8. Stress ulcer prophylaxis. 9. Continue therapy. 10. Monitor respiratory status. 11. Routine laboratory values. Job ID: [id number]
[2019-05-09] MEDS: Amlodipine 5 MG TAB PO SCH (08:12)
[2019-05-09] MEDS: metFORMIN 500 MG TAB PO SCH ×2 (08:12→21:29)
[2019-05-09] MEDS: Amiodarone 200 MG TAB PO SCH (08:12)
[2019-05-09] MEDS: Atorvastatin Calcium 20 MG TAB PO SCH (08:13)
[2019-05-09] MEDS: Pioglitazone HCl 15 MG TAB PO SCH (08:13)
[2019-05-09] MEDS: Aripiprazole 10 MG TAB PO SCH (08:13)
[2019-05-09] MEDS: clonazePAM 0.5 MG TAB PO SCH ×2 (08:13→21:29)
[2019-05-09] MEDS: Furosemide 40 MG TAB PO SCH (08:14)
[2019-05-09] MEDS: Losartan 25 MG TAB PO SCH (08:14)
[2019-05-09] MEDS: Apixaban 5 MG TAB PO SCH ×2 (08:15→21:27)
[2019-05-09] MEDS: Carvedilol 6.25 MG TAB PO SCH ×2 (08:15→21:27)
--- NOTE | 2019-05-09 16:22 | PRG ---
DATE OF SERVICE: 05/09/2019 SUBJECTIVE: Mr. Hickey is resting and denies any complaints. No family at bedside. Discussed with nursing. OBJECTIVE: VITAL SIGNS: He is afebrile, heart rate 66, respirations 18, oxygen saturation 99% on room air, and blood pressure 138/63. CARDIOVASCULAR SYSTEM: S1 and S2 plus. RESPIRATORY SYSTEM: Normal vesicular breath sounds. ABDOMEN: Soft and nontender. Bowel sounds heard in all quadrants. EXTREMITIES: Without cyanosis or clubbing. CENTRAL NERVOUS SYSTEM: Awake and responsive. Cranial nerves 2 through 12 intact. Generalized weakness. LABORATORY VALUES: Blood sugars are 120, 125, 122, 97, and 148. IMPRESSION: 1. Resolving pneumonitis. 2. Resolved acute hypoxemic respiratory failure. 3. Diabetes mellitus, type 2. 4. Hypertension. 5. Dyslipidemia. 6. Atrial fibrillation. 7. Chronic systolic congestive heart failure. 8. Dementia. PLAN: 1. Continue current medications. 2. 1800 calorie heart healthy ADA diet. 3. Accu-Cheks with sliding scale coverage. 4. Monitor heart rate and rhythm. 5. Monitor blood pressure and adjust medications as needed. 6. DVT prophylaxis-the patient is on Eliquis. 7. Decubitus precautions. 8. Stress ulcer prophylaxis. 9. Continue therapy. 10. Monitor respiratory status and breathing treatments as needed. 11. Dr. Josue goddard [facility]. Job ID: [id number]
[2019-05-10] MEDS: Pioglitazone HCl 15 MG TAB PO SCH (08:09)
[2019-05-10] MEDS: Aripiprazole 10 MG TAB PO SCH (08:10)
[2019-05-10] MEDS: Furosemide 40 MG TAB PO SCH (08:11)
[2019-05-10] MEDS: clonazePAM 0.5 MG TAB PO SCH ×2 (08:14→21:02)
[2019-05-10] MEDS: Atorvastatin Calcium 20 MG TAB PO SCH (08:14)
[2019-05-10] MEDS: Apixaban 5 MG TAB PO SCH ×2 (08:15→21:01)
[2019-05-10] MEDS: Amiodarone 200 MG TAB PO SCH (08:15)
[2019-05-10] MEDS: metFORMIN 500 MG TAB PO SCH ×2 (08:15→21:02)
[2019-05-10] MEDS: Losartan 25 MG TAB PO SCH (08:15)
[2019-05-10] MEDS: Carvedilol 6.25 MG TAB PO SCH ×2 (08:16→21:02)
[2019-05-10] MEDS: Amlodipine 5 MG TAB PO SCH (08:17)
--- NOTE | 2019-05-10 10:22 | PRG ---
DATE OF SERVICE: 05/10/2019 SUBJECTIVE: Mr. Hickey is a 74-year-old black male, patient of mine, who presented to [facility] with shortness of breath and productive cough. He had pneumonitis and was started on IV antibiotics. Also, he was hypoxic. Seen by Pulmonology in consultation and transitioned to oral antibiotics. He is very weak and was transferred to [facility] for physical therapy and occupational therapy. The patient is found lying in bed and somewhat sleepy. He is not sure whether he remembers me or not, but I am his primary care physician. He is actually doing fairly well in therapy and walked 200 feet and 300 feet. His labs were all very good. His [id number] sugars were 97 before breakfast, 148 before lunch, 114 before supper, 151 before bedtime last night, and 100 this morning. He is doing fairly well and will have his care plan meeting tomorrow. His son needs to know that he cannot be home by himself and he will need constant care. OBJECTIVE: VITAL SIGNS: Today reveal blood pressure 159/81, pulse 66 to 71, respirations 16 to 20, O2 saturation 95% on room air, T-max 98.2. GENERAL: This is a well-developed, well-nourished, slightly obese, black male, in no apparent distress at this time. HEENT: Reveals normocephalic and nontraumatic cranium. Pupils are equally round and reactive. Extraocular movements are intact. Nose and throat are slightly dry. NECK: Supple without masses, nodes, or bruits. CHEST: Clear to auscultation. No rales, rhonchi, wheezes, or cough is heard today. HEART: Reveals a regular rate and rhythm without murmurs, gallops, or rubs. ABDOMEN: Soft and nontender without organomegaly. Normal bowel sounds are noted in all 4 quadrants. No rebound or guarding is noted. : Deferred. EXTREMITIES: Reveal no clubbing, cyanosis, or edema. ASSESSMENT: 1. Resolving pneumonitis. 2. Resolved acute hypoxemic respiratory failure. 3. Diabetes, type 2, under good control. 4. Hypertension, slightly elevated today. 5. Hyperlipidemia. 6. Atrial fibrillation. 7. Chronic systolic congestive heart failure. 8. Dementia. 9. Generalized weakness. PLAN: 1. Continue present medications. 2. Continue Accu-Cheks with a.c. and at bedtime and adjust medications as needed. 3. Continue to monitor the patient's blood pressure and adjust medications as needed. 4. DVT prophylaxis with Eliquis. 5. Stress ulcer prophylaxis. 6. Decubitus precautions. 7. Continue to monitor the patient's respiratory status. 8. Continue physical therapy and occupational therapy. Awaiting their recommendations. Job ID: [id number]
[2019-05-11] MEDS: metFORMIN 500 MG TAB PO SCH ×2 (08:11→20:59)
[2019-05-11] MEDS: Aripiprazole 10 MG TAB PO SCH (08:11)
[2019-05-11] MEDS: Furosemide 40 MG TAB PO SCH (08:11)
[2019-05-11] MEDS: Atorvastatin Calcium 20 MG TAB PO SCH (08:14)
[2019-05-11] MEDS: Losartan 25 MG TAB PO SCH (08:14)
[2019-05-11] MEDS: Apixaban 5 MG TAB PO SCH ×2 (08:14→20:59)
[2019-05-11] MEDS: Carvedilol 6.25 MG TAB PO SCH ×2 (08:15→20:59)
[2019-05-11] MEDS: Amiodarone 200 MG TAB PO SCH (08:15)
[2019-05-11] MEDS: Pioglitazone HCl 15 MG TAB PO SCH (08:16)
[2019-05-11] MEDS: Amlodipine 5 MG TAB PO SCH (08:17)
[2019-05-11] MEDS: clonazePAM 0.5 MG TAB PO SCH (08:51)
--- NOTE | 2019-05-11 09:31 | PRG ---
DATE OF SERVICE: 05/11/2019 SUBJECTIVE: Mr. Hickey is a pleasant 74-year-old white male, who presented to [facility] with shortness of breath and productive cough. He had pneumonitis and was started on IV antibiotics and eventually transferred to oral antibiotics. He was seen by Pulmonology in consultation. He remained very weak and was transferred to [facility] for physical therapy and occupational therapy. The patient actually is doing very well with his therapy and is much stronger. Unfortunately, he needs to have constant supervision and cueing because he will walk away from his walker and not use it. OBJECTIVE: VITAL SIGNS: Today reveal blood pressure 131/72, pulse 67 to 69, respirations 18 to 20, O2 saturation 94% to 96% on room air, T-max 96.4. GENERAL: This is a well-developed, well-nourished, very pleasant 74-year-old white male, in no apparent distress at this time. HEENT: Reveals normocephalic and nontraumatic cranium. Pupils equal, round, and reactive. Extraocular movements are intact. Nose and throat are clear. NECK: Supple without masses, nodes, or bruits. CHEST: Clear to auscultation. No rales, rhonchi, or wheezes are heard. No cough is noted today. HEART: Reveals a regular rate and rhythm without murmurs, gallops, or rubs. ABDOMEN: Slightly obese and protuberant, nontender without organomegaly. Normal bowel sounds noted in all 4 quadrants. No rebound or guarding is noted. : Deferred. EXTREMITIES: Reveal no clubbing, cyanosis, or edema. ASSESSMENT: 1. Resolving pneumonitis. 2. Resolved acute hypoxemic respiratory failure. 3. Diabetes type 2. 4. Hypertension. 5. Hyperlipidemia. 6. Atrial fibrillation. 7. Chronic systolic congestive heart failure. 8. Dementia. 9. Generalized weakness. PLAN: 1. The patient is nearing his discharge date. 2. We will continue his present medications. 3. Continue to check Accu-Cheks a.c. and h.s. 4. Monitor the patient's blood pressure and adjust medications as needed. 5. DVT prophylaxis with Eliquis. 6. Stress ulcer prophylaxis. 7. Decubitus precautions. 8. Continue to monitor the patient's respiratory status. 9. Continue physical therapy and occupational therapy. 10. Discharge planning for discharge sometime this week. Job ID: [id number]
[2019-05-11] MEDS: clonazePAM 1 MG TAB PO SCH (20:58)
[2019-05-12] MEDS: metFORMIN 500 MG TAB PO SCH ×2 (08:06→20:57)
[2019-05-12] MEDS: Aripiprazole 10 MG TAB PO SCH (08:07)
[2019-05-12] MEDS: Apixaban 5 MG TAB PO SCH ×2 (08:07→20:57)
[2019-05-12] MEDS: Amlodipine 5 MG TAB PO SCH (08:08)
[2019-05-12] MEDS: Furosemide 40 MG TAB PO SCH (08:08)
[2019-05-12] MEDS: Pioglitazone HCl 15 MG TAB PO SCH (08:08)
[2019-05-12] MEDS: Amiodarone 200 MG TAB PO SCH (08:08)
[2019-05-12] MEDS: Atorvastatin Calcium 20 MG TAB PO SCH (08:08)
[2019-05-12] MEDS: Losartan 25 MG TAB PO SCH (08:08)
[2019-05-12] MEDS: Carvedilol 6.25 MG TAB PO SCH ×2 (08:09→20:57)
[2019-05-12] MEDS: clonazePAM 1 MG TAB PO SCH ×2 (08:52→20:57)
--- NOTE | 2019-05-12 11:30 | PRG ---
DATE OF SERVICE: 05/12/2019 SUBJECTIVE: Mr. Hickey is a 74-year-old white male, admitted to [facility] with shortness of breath and productive cough. He had a pneumonitis, started on IV antibiotics, which were eventually transferred and weaned to oral antibiotics. Seen by Pulmonology consultation. He has remained very weak and would benefit from inpatient therapy. He was transferred to [facility] for physical therapy and occupational therapy. The patient has actually done very well and is actually reaching maximum medical benefit. The patient's son is out of town, and hopefully, the patient will be ready for discharge on Friday or Friday. OBJECTIVE: VITAL SIGNS: Today reveal blood pressure 119/68, pulse 62 to 71, respirations 18, O2 saturation 92% to 94% on room air, T-max 97.6. GENERAL: This is a well-developed, well-nourished, very pleasant, 74-year-old, black male, in no apparent distress today. HEENT: Reveals normocephalic and nontraumatic cranium. Pupils are equally round and reactive. Extraocular movements are intact. Nose and throat are slightly dry, but clear. NECK: Supple without masses, nodes, or bruits. CHEST: Clear to auscultation. No rales, rhonchi, wheezes, or cough is heard. HEART: Reveals a regular rate and rhythm without murmurs, gallops, or rubs. ABDOMEN: Slightly obese, soft, and nontender without organomegaly. Normal bowel sounds are noted. No rebound or guarding is noted. : Deferred. EXTREMITIES: Reveal no clubbing, cyanosis, or edema. ASSESSMENT: 1. Resolving pneumonitis. 2. Resolved acute hypoxemic respiratory failure. 3. Diabetes, type 2, fairly good control. 4. Hypertension. 5. Hyperlipidemia. 6. Atrial fibrillation. 7. Chronic systolic congestive heart failure, stable. 8. Dementia. 9. Generalized weakness. PLAN: 1. The patient is nearing his discharge date. 2. Unfortunately, the patient's son is out of town. He is supposed to be back tomorrow or the next day. 3. The patient is doing well, most likely can be discharged Friday or Friday. 4. Dr. Lui Ro will be covering my call over the . 5. Continue Accu-Cheks before meals and at bedtime. 6. Continue to monitor the patient's blood pressure closely and adjust medications as needed. 7. DVT prophylaxis with Eliquis. 8. Stress ulcer prophylaxis. 9. Decubitus precautions. 10. Continue to monitor the patient's respiratory status. 11. Continue physical therapy and occupational therapy. 12. Discharge planning for discharge at the end of the week. Job ID: [id number]
[2019-05-13] MEDS: Pioglitazone HCl 15 MG TAB PO SCH (08:04)
[2019-05-13] MEDS: metFORMIN 500 MG TAB PO SCH ×2 (08:04→20:36)
[2019-05-13] MEDS: Aripiprazole 10 MG TAB PO SCH (08:04)
[2019-05-13] MEDS: Atorvastatin Calcium 20 MG TAB PO SCH (08:05)
[2019-05-13] MEDS: clonazePAM 1 MG TAB PO SCH ×2 (08:05→20:36)
[2019-05-13] MEDS: Amiodarone 200 MG TAB PO SCH (08:06)
[2019-05-13] MEDS: Apixaban 5 MG TAB PO SCH ×2 (08:06→20:36)
[2019-05-13] MEDS: Furosemide 40 MG TAB PO SCH (08:06)
[2019-05-13] MEDS: Amlodipine 5 MG TAB PO SCH (08:06)
[2019-05-13] MEDS: Losartan 25 MG TAB PO SCH (08:07)
[2019-05-13] MEDS: Carvedilol 6.25 MG TAB PO SCH ×2 (08:07→20:36)
[2019-05-14] MEDS: Furosemide 40 MG TAB PO SCH (08:33)
[2019-05-14] MEDS: Amlodipine 5 MG TAB PO SCH (08:33)
[2019-05-14] MEDS: Amiodarone 200 MG TAB PO SCH (08:33)
[2019-05-14] MEDS: Apixaban 5 MG TAB PO SCH ×2 (08:34→20:38)
[2019-05-14] MEDS: Atorvastatin Calcium 20 MG TAB PO SCH (08:34)
[2019-05-14] MEDS: Aripiprazole 10 MG TAB PO SCH (08:34)
[2019-05-14] MEDS: Carvedilol 6.25 MG TAB PO SCH ×2 (08:35→20:38)
[2019-05-14] MEDS: clonazePAM 1 MG TAB PO SCH ×2 (08:35→20:38)
[2019-05-14] MEDS: Losartan 25 MG TAB PO SCH (08:35)
[2019-05-14] MEDS: metFORMIN 500 MG TAB PO SCH ×2 (08:36→20:38)
[2019-05-14] MEDS: Pioglitazone HCl 15 MG TAB PO SCH (08:36)
--- NOTE | 2019-05-14 12:15 | PRG ---
DATE OF SERVICE: 05/13/[address] Swapna Santana. SUBJECTIVE: The patient lying in the bed, resting, sleeping, awakens easily with no complaint. He has been working well with therapy and his much stronger. OBJECTIVE: VITAL SIGNS: Show temperature is 99.9, pulse 75, respirations 20, O2 sats 94% on room air, blood pressure 101/62. LUNGS: Show decreased breath sounds in the bases. CARDIAC: Shows regular rhythm. ABDOMEN: Obese and nontender. SKIN/EXTREMITIES: Display no edema, clubbing, or cyanosis. ASSESSMENT: 1. Resolving pneumonia and acute hypoxic respiratory failure. 2. Type 2 diabetes, controlled to goal with Accu-Cheks ranging from 114 to 138. 3. Atrial fibrillation, appears to be rate controlled and anticoagulated with amiodarone and apixaban and carvedilol. 4. Mild agitation, impulsive behavior, requiring close monitoring by the nurses, not improved despite increasing strength. PLAN: 1. Monitor closely because of impulsive behavior. 2. Continue weight control and anticoagulation of atrial fibrillation. 3. Continue PT/OT. 4. Continue Accu-Cheks to monitor and titrate and control diabetes. Job ID: [id number]
[2019-05-15] MEDS: Atorvastatin Calcium 20 MG TAB PO SCH (08:57)
[2019-05-15] MEDS: Apixaban 5 MG TAB PO SCH ×2 (08:57→21:10)
[2019-05-15] MEDS: Amlodipine 5 MG TAB PO SCH (08:57)
[2019-05-15] MEDS: Aripiprazole 10 MG TAB PO SCH (08:58)
[2019-05-15] MEDS: Furosemide 40 MG TAB PO SCH (08:58)
[2019-05-15] MEDS: Losartan 25 MG TAB PO SCH (08:58)
[2019-05-15] MEDS: clonazePAM 1 MG TAB PO SCH ×2 (08:59→21:10)
[2019-05-15] MEDS: Pioglitazone HCl 15 MG TAB PO SCH (08:59)
[2019-05-15] MEDS: metFORMIN 500 MG TAB PO SCH ×2 (08:59→21:10)
[2019-05-15] MEDS: Carvedilol 6.25 MG TAB PO SCH ×2 (08:59→21:10)
[2019-05-15] MEDS: Amiodarone 200 MG TAB PO SCH (08:59)
[2019-05-16] MEDS: Losartan 25 MG TAB PO SCH (08:29)
[2019-05-16] MEDS: Amiodarone 200 MG TAB PO SCH (08:29)
[2019-05-16] MEDS: clonazePAM 1 MG TAB PO SCH ×2 (08:29→20:38)
[2019-05-16] MEDS: metFORMIN 500 MG TAB PO SCH ×2 (08:29→20:37)
[2019-05-16] MEDS: Atorvastatin Calcium 20 MG TAB PO SCH (08:29)
[2019-05-16] MEDS: Carvedilol 6.25 MG TAB PO SCH ×2 (08:29→20:37)
[2019-05-16] MEDS: Furosemide 40 MG TAB PO SCH (08:29)
[2019-05-16] MEDS: Pioglitazone HCl 15 MG TAB PO SCH (08:29)
[2019-05-16] MEDS: Amlodipine 5 MG TAB PO SCH (08:29)
[2019-05-16] MEDS: Apixaban 5 MG TAB PO SCH ×2 (08:30→20:37)
[2019-05-16] MEDS: Aripiprazole 10 MG TAB PO SCH (08:30)
--- NOTE | 2019-05-16 16:14 | PRG ---
DATE OF SERVICE: 05/14/2019 SUBJECTIVE: The patient is lying in bed, resting, awakens easily, but is not doing any therapy at this time, but has no complaints. OBJECTIVE: VITAL SIGNS: Show temperature 97.2, pulse 67, respirations 20, O2 saturations 95% on room air, blood pressure 103/67. Accu-Cheks range 123 to 143. LUNGS: Clear. CARDIAC: Shows regular rhythm. ABDOMEN: Soft, nontender. ASSESSMENT: 1. Resolving pneumonia and hypoxic respiratory failure. 2. Type 2 diabetes, controlled to goal. 3. Atrial fibrillation with rate control and anticoagulation. 4. Agitation, appears to be improving. PLAN: 1. Continue PT/OT. 2. Continue Accu-Cheks to monitor and titrate and control diabetes. 3. Continue rate control and anticoagulation for atrial fibrillation. 4. Continue to monitor for respiratory distress. Job ID: [id number]
--- NOTE | 2019-05-16 16:24 | PRG ---
DATE OF SERVICE: 05/15/2019 SUBJECTIVE: The patient feels well with no complaints, lying in bed, ready for more therapy next week. He is having no cough or shortness of breath. OBJECTIVE: LUNGS: Clear. CARDIAC: Shows regular rhythm. ABDOMEN: Soft and nontender. SKIN/EXTREMITIES: Show no edema, clubbing, or cyanosis. VITAL SIGNS: Blood pressure 131/74, temperature 97, pulse 75, respirations 18, O2 saturations 96% on room air. ASSESSMENT: 1. Resolving pneumonia with respiratory failure. 2. Type 2 diabetes, controlled to goal. 3. Atrial fibrillation with rate controlled, on anticoagulation. PLAN: 1. Continue PT/OT. 2. Continue Accu-Cheks to monitor and titrate and control diabetes. 3. Continue to monitor for impulsive behavior and compliance with therapy. 4. Continue anticoagulation for atrial fibrillation. Job ID: [id number]
--- NOTE | 2019-05-16 17:07 | PRG ---
DATE OF SERVICE: 05/16/2019 SUBJECTIVE: The patient is lying in bed, resting well, with no complaints of shortness of breath, chest pain, cough, nausea, or vomiting. OBJECTIVE: Shows VITAL SIGNS: Temperature is 98.1, pulse 76, respirations 18, O2 saturations 95% on room air, blood pressure 129/75. Accu-Cheks ranged from 88 to 117. LUNGS: Clear. CARDIAC: Shows regular rhythm. ABDOMEN: Soft and nontender. ASSESSMENT: 1. Resolving pneumonia and respiratory failure. 2. Type 2 diabetes, controlled to goal. 3. Atrial fibrillation with rate control, on anticoagulation. 4. Deconditioning. PLAN: 1. Continue PT/OT. 2. Continue Accu-Cheks to monitor and titrate and control diabetes. 3. Continue to monitor for impulsive behavior and compliance with therapy. 4. Continue anticoagulation and rate control of atrial fibrillation. Job ID: [id number]
[2019-05-17] MEDS: Pioglitazone HCl 15 MG TAB PO SCH (08:17)
[2019-05-17] MEDS: Aripiprazole 10 MG TAB PO SCH (08:19)
[2019-05-17] MEDS: Furosemide 40 MG TAB PO SCH (08:19)
[2019-05-17] MEDS: Apixaban 5 MG TAB PO SCH (08:21)
[2019-05-17] MEDS: metFORMIN 500 MG TAB PO SCH (08:21)
[2019-05-17] MEDS: Atorvastatin Calcium 20 MG TAB PO SCH (08:21)
[2019-05-17] MEDS: Losartan 25 MG TAB PO SCH (08:22)
[2019-05-17] MEDS: Carvedilol 6.25 MG TAB PO SCH (08:23)
[2019-05-17] MEDS: Amiodarone 200 MG TAB PO SCH (08:25)
[2019-05-17] MEDS: Amlodipine 5 MG TAB PO SCH (08:26)
[2019-05-17] MEDS: clonazePAM 1 MG TAB PO SCH (10:32)
[2019-05-17 13:26] VITALS: BP 107/66; TEMP 98.2
--- NOTE | 2019-05-18 07:39 | DIS ---
DATE OF ADMISSION: 05/05/2019 DATE OF DISCHARGE: 05/17/2019 HISTORY OF PRESENT ILLNESS: Mr. Hickey is a 74-year-old white male admitted to [facility] with shortness of breath and productive cough. He was diagnosed with pneumonitis and started on IV antibiotics. Those were eventually weaned to oral antibiotics. He was seen in consultation by Pulmonology because he remained very weak. He felt that he would benefit significantly from inpatient rehab and was transferred to [facility] for PT and OT. The patient has done very well and was supposed to go home this past Friday or Friday, but had no one at home to pick him up. I did contact Caitlin, his sister, because his son, Yaya is on cruise. I was told by Yaya that she was supposed to pick him up today, but she corrected me and said that Reverend Jhonny Ferguson, his brother, would pick him up today. We did contact Reverend Ferguson on his cell number and he will pick him up after lunch. OBJECTIVE: VITAL SIGNS: Today reveal blood pressure 118/71, pulse 72, respirations 18, O2 saturation 94% on room air, T-max 98.1. DISCHARGE MEDICATIONS: Reveal the patient will be discharged on the following. 1. Albuterol DuoNeb q.6 schedule. 2. Amiodarone 200 mg each day. 3. Amlodipine 10 mg daily. 4. Eliquis 5 mg b.i.d. 5. Abilify 5 mg daily. 6. Atorvastatin 20 mg daily. 7. Carvedilol 6.25 b.i.d. 8. Klonopin 0.5 mg b.i.d. 9. Lasix 40 mg daily. 10. Losartan 25 mg daily. 11. Metformin 500 mg b.i.d. 12. Pantoprazole 40 mg daily. 13. Pioglitazone 30 mg daily. PHYSICAL EXAMINATION: GENERAL: This is a well-developed, well-nourished, slightly obese black male, in no apparent distress at this time. HEENT: Normocephalic and nontraumatic cranium. Pupils equal, round, and reactive. Extraocular movements are intact. Nose and throat are slightly dry. NECK: Supple without masses, nodes or bruits. CHEST: Clear to auscultation. No rales, rhonchi, wheezes are noted. No cough is noted today. HEART: Reveals a regular rate and rhythm without murmurs, gallops, or rubs. ABDOMEN: Soft, nontender. Normal bowel sounds noted in all 4 quadrants. No rebound or guarding is noted. GENITOURINARY: Deferred. EXTREMITIES: Reveal no clubbing, cyanosis, or edema. ASSESSMENT: 1. Resolved pneumonitis. 2. Resolved acute hypoxemic respiratory failure. 3. Diabetes type 2 under fairly good control. 4. Hypertension, stable. 5. Hyperlipidemia. 6. Atrial fibrillation. 7. Chronic systolic congestive heart failure. 8. Dementia. 9. Generalized weakness. PLAN: 1. Continue above medications. 2. The patient will be discharged to his brother, Reverend Ferguson. The patient's sister Caitlin tells me that the patient, Mr. Hickey lives in her house and is watched over by a nephew. 3. Continue to monitor the patient's blood pressure closely. 4. Continue DVT prophylaxis and stroke prophylaxis with Eliquis 5 mg b.i.d. 5. Stress ulcer prophylaxis. 6. The patient will have home physical therapy and occupational therapy as he qualifies for. 7. The patient is ready for discharge today at 1 o'clock. Job ID: [id number]
--- NOTE | 2019-05-19 23:17 | PQF ---
[employer] [facility] SATISH Vargas C. HENRY MD [id number] CLINICAL DOCUMENTATION CLARIFICATION FORM: POST DISCHARGE Addendum to original discharge summary date: ____ Late entry note date: __ DATE:05/19/2019 ATTN:oJsue EUGENE MD Please exercise your independent, professional judgment in responding to the clarification form. Clinical indicators are provided on the bottom of this form for your review Please check appropriate box(s): Kindly clarify whether resolved acute res failure was resolved prior to this admission on Resolved during this admission [ ] Acute Respiratory Failure with Hypoxia was resolved Prior to this admission [ ] Acute Respiratory Failure with Hypoxia was resolved During this his admission [ ] Hypoxia [ ] Other diagnosis [ ] Unable to determine In addition, please specify: Present on Admission (POA): [ ] Yes [ ] No [ ] Unable to determine For continuity of documentation, please document condition throughout progress notes and discharge summary. Thank You. CLINICAL INDICATORS - SIGNS / SYMPTOMS / LABS Recent admission to the hospital for pneumonia - Documented in H&P on 05/06 by Radha Nichols for inpatient rehabilitation, so transferred here - Documented in H&P on 05/06 by Radha Nichols resolving pneumonitis - Documented in H&P on 05/06 by Radha Nichols respirations rate -18, O2 saturations 95% on room air - Documented in PNs on by Jia Poe [employer]ORS Resolved acute hypoxemic respiratory failure- Documented in H&P on 05/06 by Radha Nichols Resolving pneumonia & respiratory failure - Documented in PNs on 05/16 by Jia Poe TREATMENTS: Continue monitor the patient's Respiratory status - Documented in PNs on 05/17 by Josue EUGENE MD Breathing Treatments as needed - Documented in H&P on 05/06 by Radha Nichols [employer](This form is maintained as a part of the permanent medical record) 2014 [employer]. All Rights Reserved [email or web address] [not provided] MTDD
== END 2019-05-17 13:40 | disposition home health service (06) | DRG 194 ==
LOC: NAV ACUTE 15:10
PROVIDERS: ADMIT Internal Medicine; ATTEND Internal Medicine
DX: J18.9 Pneumonia, unspecified organism (principal); I50.22 Chronic systolic (congestive) heart failure; E11.9 Type 2 diabetes mellitus without complications; I11.0 Hypertensive heart disease with heart failure; E78.5 Hyperlipidemia, unspecified; K21.9 Gastro-esophageal reflux disease without esophagitis; I48.91 Unspecified atrial fibrillation; F03.90 Unspecified dementia, unspecified severity, without behavioral disturbance, psychotic disturbance, mood disturbance, and anxiety; Z98.890 Other specified postprocedural states; Z79.84 Long term (current) use of oral hypoglycemic drugs; Z79.899 Other long term (current) drug therapy
CPT/HCPCS: 36415; 36416; 80048; 85025; 90471; 90686; 94640; G0008; J7620

== ENCOUNTER 2019-08-05 12:30 | Emergency (ER) | payer MEDICARE ==
--- NOTE | 2019-08-05 13:18 | CT ---
EXAM: Brain CT scan Without contrast: HISTORY: Injury from a fall, trauma COMPARISON: 04/03/2018 FINDINGS: Stable exam Atrophy and chronic white matter ischemic change. No focal mass or midline shift. No intra or extra-axial hemorrhage. The visualized sinuses and mastoids are clear of acute process. IMPRESSION: No mass or bleed or other significant acute intracranial process.
[2019-08-05] MEDS ORDERED: Adacel (T-DAP) 0.5 ML SYRINGE ONE (13:48)
[2019-08-05] MEDS ORDERED: Bacitracin 1 PK ONE (13:57)
--- NOTE | 2019-08-05 14:19 | RAD ---
LEFT SHOULDER 3 VIEWS: Date: 08/05/2019 HISTORY: Pain. COMPARISON: None. FINDINGS: There is moderate soft tissue swelling over the left shoulder. No acute displaced fracture is appreci ated. The ribs are intact. There are erosions of the greater tuberosity footprint, likely from rotator cuff arthropathy. IMPRESSION: Soft tissue swelling and rotator cuff arthropathy. No acute displaced fracture. POS: TPC
== END 2019-08-05 14:10 | disposition home or self-care (01) ==
LOC: NAV ERS 12:30
DX: S01.01XA Laceration without foreign body of scalp, initial encounter (principal); E11.9 Type 2 diabetes mellitus without complications; I10 Essential (primary) hypertension; F03.90 Unspecified dementia, unspecified severity, without behavioral disturbance, psychotic disturbance, mood disturbance, and anxiety; F20.9 Schizophrenia, unspecified; E78.5 Hyperlipidemia, unspecified; Z86.73 Personal history of transient ischemic attack (TIA), and cerebral infarction without residual deficits; Z79.899 Other long term (current) drug therapy; Z79.82 Long term (current) use of aspirin; Z79.84 Long term (current) use of oral hypoglycemic drugs; X50.9XXA Other and unspecified overexertion or strenuous movements or postures, initial encounter
CPT/HCPCS: 12002; 70450; 90471; 90715

== ENCOUNTER 2019-12-22 16:20 | Emergency (ER) | payer MEDICARE ==
[2019-12-22 17:01] LABS: #Basophils 0.1 thou/uL (0.0-0.2); #Lymphocytes 1.9 thou/uL (1.20-3.40); #Monocytes 0.9 thou/uL (0.11-0.59); #Neutrophils 10.4 thou/uL (1.40-6.50); %Basophils 0.6 % (0.0-1.0); %Eosinophils 0.2 % (0.0-10.0); %Lymphocytes 14.3 % (21.0-51.0); %Monocytes 6.7 % (0.0-10.0); %Neutrophils 78.3 % (42.0-75.0); Hemoglobin 10.8 g/dL (14.0-18.0); Mean Corpuscular HGB CONC 30.9 g/dL (32.0-36.0); Mean Corpuscular Hemoglobin 29.9 pg (27.0-31.0); Mean Corpuscular Volume 96.8 fL (78.0-98.0); Mean Platelet Volume 7.7 fL (7.4-10.4); Platelet Count 270 thou/uL (130-400); RBC Distribution Width 14.9 % (11.5-14.5); White Blood Cell (WBC) Count 13.2 thou/uL (4.8-10.8)
[2019-12-22 17:14] LABS: Bilirubin Small (Negative); Blood, Urine Trace (Negative); Glucose, Urine (Dipstick) Negative (Negative); Ketone, Urine 15 mg/dL (Negative); Leukocyte Trace (Negative); Nitrite Negative (Negative); Protein, Urine (Dipstick) 30 mg/dL (Neg-Trace)
[2019-12-22 17:21] LABS: Clarity SL HAZY (Clear)
[2019-12-22 17:21] LABS: ALT (SGPT) 9 U/L (8-55); AST (SGOT) 9 U/L (5-34); Albumin 3.7 g/dL (3.4-4.8); Alkaline Phosphatase 68 U/L (40-110); Anion Gap 18 mmol/L (10-20); BUN (Urea Nitrogen) 31 mg/dL (8.4-25.7); Bilirubin, Total 0.4 mg/dL (0.2-1.2); CK (CPK) 48 U/L (30-200); Calc. Creatinine Clearance 0 mL/min (70-130); Calcium 8.7 mg/dL (7.8-10.44); Carbon Dioxide 22 mmol/L (23-31); Chloride 101 mmol/L (98-107); Estimated GFR-MDRD 38; Globulin 3.7 g/dL (2.4-3.5); Glucose 133 mg/dL (83-110); Potassium 4.7 mmol/L (3.5-5.1); Protein, Total 7.4 g/dL (5.8-8.1); Sodium 136 mmol/L (136-145)
[2019-12-22 17:24] LABS: Bacteria/HPF 3+ HPF (None Seen); RBC/HPF 0-3 HPF (0-3); Squamous Epithelial 0-3 HPF (0-3); WBC/HPF 0-3 HPF (0-3)
--- NOTE | 2019-12-22 17:52 | CT ---
CT Brain WO Con: 12/22/2019 4:34 PM CLINICAL HISTORY: Hypotension and drowsiness. IMAGING TECHNIQUE: Multiple CT images were obtained of the brain without IV contrast. COMPARISON: August 05, 2019 FINDINGS: BRAIN: Evidence of acute infarct: None. Evidence of chronic ischemic change:Stable mild chronic small vessel white matter ischemic change. St able generalized cerebral and cerebellar atrophy. Evidence of intracranial hemorrhage: None. Evidence of midline shift: Third ventricle and septum pellucidum are midline. Ventricles: Normal. No hydrocephalus. SKULL: Intact. VISUALIZED PARANASAL SINUSES: Clear. MASTOID AIR CELLS: Clear. EXTRACRANIAL SOFT TISSUES: Normal. IMPRESSION: No acute intracranial abnormality.
[2019-12-22] MEDS ORDERED: Sodium Chloride 0.9% 1,000 ML ONE (17:54)
--- NOTE | 2019-12-22 18:22 | RAD ---
Chest AP view INDICATION: Hypotension COMPARISON: December 06, 2019 single view of the chest FINDINGS: Lungs: The lungs are clear Cardiac silhouette: Stable moderate cardiomegaly Pulmonary vasculature: Normal Pleural spaces: Stable elevation the right hemidiaphragm. No pleural effusion or pneumothorax. Upper abdomen: No abnormality seen. Osseous structures: There is scattered degenerative and osteoarthritic change present. No acute frac ture or subluxation demonstrated. Additional findings: None. IMPRESSION: No acute cardiopulmonary abnormality. Stable moderate cardiomegaly and elevation of the right hemidiaphragm.
== END 2019-12-22 18:30 | disposition short-term general hospital (02) ==
LOC: NAV ERS 16:20
DX: N17.9 Acute kidney failure, unspecified (principal); E11.9 Type 2 diabetes mellitus without complications; I10 Essential (primary) hypertension; I48.91 Unspecified atrial fibrillation; E78.5 Hyperlipidemia, unspecified; F03.90 Unspecified dementia, unspecified severity, without behavioral disturbance, psychotic disturbance, mood disturbance, and anxiety; F20.9 Schizophrenia, unspecified; Z79.84 Long term (current) use of oral hypoglycemic drugs; Z79.01 Long term (current) use of anticoagulants; Z79.82 Long term (current) use of aspirin; Z79.899 Other long term (current) drug therapy
CPT/HCPCS: 36416; 70450; 71045; 80053; 81003; 81015; 82550; 83605; 83880; 84484; 85025; 87040; 87086; 93005; 94760; 96360; 96365; J1956; J7050

== ENCOUNTER 2019-12-27 19:35 | Inpatient (IN) | payer MEDICARE ==
[2019-12-27 20:39] VITALS: BMI 25.2
[2019-12-27] MEDS ORDERED: Aripiprazole 10 MG TAB PO SCH (21:00)
[2019-12-27] MEDS ORDERED: Donepezil HCl 5 MG TAB PO SCH (21:00)
[2019-12-27] MEDS ORDERED: Atorvastatin Calcium 20 MG TAB PO SCH (21:00)
[2019-12-27] MEDS ORDERED: Acetaminophen 325 MG TAB PO PRN (21:01)
[2019-12-27] MEDS: clonazePAM 0.5 MG TAB PO SCH (21:36)
[2019-12-27] MEDS: Apixaban 5 MG TAB PO SCH (21:36)
[2019-12-28 05:28] LABS: #Basophils 0.1 thou/uL (0.0-0.2); #Lymphocytes 2.4 thou/uL (1.20-3.40); #Monocytes 0.7 thou/uL (0.11-0.59); #Neutrophils 8.2 thou/uL (1.40-6.50); %Basophils 0.7 % (0.0-1.0); %Eosinophils 0.3 % (0.0-10.0); %Lymphocytes 21.3 % (21.0-51.0); %Monocytes 5.9 % (0.0-10.0); %Neutrophils 71.8 % (42.0-75.0); Hemoglobin 11.4 g/dL (14.0-18.0); Mean Corpuscular HGB CONC 31.3 g/dL (32.0-36.0); Mean Corpuscular Hemoglobin 29.9 pg (27.0-31.0); Mean Corpuscular Volume 95.5 fL (78.0-98.0); Mean Platelet Volume 7.4 fL (7.4-10.4); Platelet Count 269 thou/uL (130-400); RBC Distribution Width 14.4 % (11.5-14.5); White Blood Cell (WBC) Count 11.3 thou/uL (4.8-10.8)
[2019-12-28 05:47] LABS: ALT (SGPT) 9 U/L (8-55); AST (SGOT) 9 U/L (5-34); Albumin 3.4 g/dL (3.4-4.8); Alkaline Phosphatase 67 U/L (40-110); Anion Gap 14 mmol/L (10-20); BUN (Urea Nitrogen) 11 mg/dL (8.4-25.7); Bilirubin, Total 0.3 mg/dL (0.2-1.2); Calc. Creatinine Clearance 97 mL/min (70-130); Calcium 8.5 mg/dL (7.8-10.44); Carbon Dioxide 21 mmol/L (23-31); Chloride 106 mmol/L (98-107); Estimated GFR-MDRD Greater than 90; Globulin 3.6 g/dL (2.4-3.5); Glucose 106 mg/dL (83-110); Potassium 3.8 mmol/L (3.5-5.1); Sodium 137 mmol/L (136-145)
[2019-12-28] MEDS ORDERED: Carvedilol 6.25 MG TAB PO SCH (08:00)
[2019-12-28] MEDS ORDERED: Ferrous Sulfate 325 MG TAB PO SCH (08:00)
[2019-12-28] MEDS ORDERED: Potassium Chloride 20 MEQ TAB PO SCH (08:00)
[2019-12-28] MEDS ORDERED: metFORMIN 500 MG TAB PO SCH (08:00)
[2019-12-28] MEDS: Apixaban 5 MG TAB PO SCH ×2 (08:35→19:52)
[2019-12-28] MEDS: clonazePAM 0.5 MG TAB PO SCH ×2 (08:36→19:48)
[2019-12-28] MEDS ORDERED: Furosemide 20 MG TAB PO SCH (09:00)
[2019-12-28] MEDS ORDERED: Amiodarone 200 MG TAB PO SCH (09:00)
[2019-12-28] MEDS ORDERED: Acetaminophen 325 MG TAB PO PRN (09:37)
[2019-12-28] MEDS ORDERED: Senokot S 8.6-50 MG TAB PO PRN (09:39)
[2019-12-28] MEDS ORDERED: Loperamide HCl 2 MG CAP PO PRN (09:39)
[2019-12-28] MEDS: Carvedilol 6.25 MG TAB PO SCH (17:03)
[2019-12-28] MEDS: metFORMIN 500 MG TAB PO SCH (19:48)
[2019-12-28] MEDS: Atorvastatin Calcium 20 MG TAB PO SCH (19:48)
[2019-12-28] MEDS: Donepezil HCl 5 MG TAB PO SCH ×2 (19:51→19:52)
[2019-12-28] MEDS: Aripiprazole 10 MG TAB PO SCH (19:53)
--- NOTE | 2019-12-29 07:05 | HP ---
DATE OF SERVICE 12-28-2019 I was unable to get into the dictation mode. I am not sure if the Internet was down or whatever, but nonetheless, the patient was seen yesterday, dictated today. HISTORY OF PRESENT ILLNESS: This patient is a well-developed, well-nourished, 74-year-old black male, who was initially admitted to [facility] on 12/22/2019, with acute kidney injury. He was eventually diagnosed with systemic inflammatory response syndrome, chronic iron deficiency, atrial fibrillation, diabetes type 2, hypertension, heart failure with reduced ejection fraction of 30% 40%, schizophrenia, and dementia. It is noted that the patient was previously admitted to [facility] , and did very well there. Discharged 2 days before he was admitted to [facility]. On admission, apparently the patient has not been eating or drinking well, and his home hDATE OF SERVUCE : [facility] was unable to get a good pulse or high blood pressure. He was brought to the emergency room at [facility], evaluated, noted to be dehydrated, given 1.5 L of fluid, and his blood pressure systolic then did reach 100. He was transferred to [facility] in [place] for further treatment. PAST MEDICAL HISTORY: Significant for, 1. Paroxysmal atrial fibrillation. 2. Essential hypertension. 3. Diabetes type 2 without complications. 4. COPD with chronic bronchitis. 5. Hypercholesterolemia. 6. Gastroesophageal reflux. 7. Unintentional weight loss. 8. Congestive heart failure. 9. Cardiomegaly. 10. Arthritis. 11. Alzheimer dementia. 12. Acute kidney injury. 13. Sepsis secondary to urinary tract infection. 14. Normocytic anemia. 15. Acute kidney injury with creatinine elevated to 2.08. 16. Sepsis of urinary tract infection. Lactic acid 2.5. He received Levaquin. 17. Generalized weakness. PAST SURGICAL HISTORY: 1. The patient has had a laparotomy. 2. The patient has had heart procedures done by Dr. Bray, unknown. FAMILY HISTORY: 1. The patient's father of cancer and had heart disease. 2. The patient's mother in her 80s of breast cancer, diabetes. 3. The patient has 2 sisters of and 1 son who is alive. The patient has 3 brothers, 8 sisters, 4 sons, 2 daughters who are healthy. SOCIAL HISTORY: The patient used to smoke and smoked half a pack a day for many years and quit in 2014. The patient denies alcohol. He lives with his niece and his nephew. ALLERGIES: THE PATIENT HAS NO KNOWN DRUG ALLERGIES. MEDICATIONS: Transferred to [facility] include, 1. Tylenol 650 mg q.4 p.r.n. 2. Amiodarone 200 mg daily. 3. Eliquis 5 mg b.i.d. 4. Abilify 5 mg at bedtime. 5. Lipitor 20 mg at bedtime. 6. Carvedilol 12.5 mg b.i.d. 7. Klonopin 0.25 mg b.i.d. 8. Aricept 5 mg at bedtime. 9. Ferrous sulfate 325 mg once a day. 10. Lasix 20 mg daily. 11. Imodium 2 mg p.r.n. 12. Metformin 500 mg b.i.d. with food. 13. Protonix 40 mg daily. 14. Potassium chloride 20 mEq daily. 15. Senokot 2 tablets b.i.d. p.r.n. REVIEW OF SYSTEMS: 1. The patient denies fever, chills, or night sweats, although he does have dementia. He answers questions fairly well this morning. 2. The patient does complain of weakness and fatigue. 3. Denies any visual or hearing changes. 4. Denies any respiratory problems, cough, cold, congestion, sputum production, or hemoptysis. 5. The patient denies any chest pain, rapid, or irregular heartbeat, although he does have atrial fibrillation. 6. The patient denies any GI problems including nausea, vomiting, diarrhea, or constipation. 7. The patient denies nocturia, hematuria, frequency, urgency, or dysuria. 8. The patient denies any arthritis, although he has a history of arthritis in the past. 9. The patient denies any skin rashes or skin lesions or changes. 10. The patient denies heat or cold intolerance. 11. The patient denies any new bruising etc. 12. The patient denies any recent allergy problems. 13. The patient does have a history of schizophrenia in the past, but he denies that. PHYSICAL EXAMINATION: VITAL SIGNS: On admission revealed the patient's blood pressure was 107/67, pulse 67 to 73, respirations 18 to 20, O2 saturation 98% to 100% on room air, T-max 98.0. GENERAL: This is a well-developed, well-nourished white male, who has lost some weight since the last time I have seen in my office approximately 2 months ago. HEENT: Normocephalic and nontraumatic cranium. Pupils are equally round and reactive. Extraocular movements are intact. Nose and throat are slightly dry. NECK: Supple without masses, nodes, or bruits. CHEST: Clear to auscultation. No rales, no rhonchi, no wheezes are heard. HEART: Irregularly irregular rate and rhythm, but rate controlled. No murmurs, gallops, or rubs are noted. ABDOMEN: Soft, nontender without organomegaly. Normal bowel sounds are noted. No rebound or guarding is noted. No CVA tenderness is noted. : Deferred. EXTREMITIES: No clubbing, cyanosis, or edema. The patient's memory is very poor, but he does know who he is. He is oriented to person and place and he does recognize me. He is not oriented to time or situation. NEUROLOGIC: Grossly unremarkable with no focal findings. ASSESSMENT: 1. Generalized weakness. 2. Congestive heart failure. 3. Unintentional weight loss. 4. Cardiomegaly. 5. Acute kidney injury. 6. Normocytic anemia. 7. Sepsis secondary to urinary tract infection. 8. Diabetes, type 2. 9. Congestive heart failure with ejection fraction 30% to 40%. 10. Hypertension. 11. Alzheimer-type dementia. 12. Schizophrenia. 13. Normocytic anemia. 14. Generalized weakness and physical deconditioning. PLAN: 1. The patient is transferred to [facility] for continued physical therapy and occupational therapy. When he was discharged, the discharging physician called me and states that he is on the same medications, and he has finished his antibiotics and his fluids. He will be transferred to [facility] bed for PT and OT. His only new medications ferrous sulfate 325 mg daily. He is not on any pain medicine or antibiotics at this time. 2. We will continue to monitor sugars and blood pressure. 3. Continue to monitor electrolytes and his anemia and renal indices. 4. Encourage him to continue with physical therapy and occupational therapy. 5. Continue present medications. Discharged from [facility]. 6. Stress ulcer prophylaxis. 7. Decubitus precautions. 8. Diet will be a healthy heart diet. Job ID: [id number] MTDD
--- NOTE | 2019-12-29 07:51 | PRG ---
DATE OF SERVICE: 12/29/2019 SUBJECTIVE: Mr. Hickey is a well-developed, well-nourished, 74-year-old black male, who was seen in the emergency room at [facility], found to have acute kidney injury with dehydration and sepsis secondary to urinary tract infection. He was transferred to [facility], stayed in the hospital for several days, treated and now is transferred back to [facility] because of weakness. The patient actually did very well with therapy yesterday. He is eating well. He is not combative. He is very calm. He is not aggressive at all. I did see him early this morning. He is awake and he is oriented to person and place, but not to time. He did recognize me immediately. He was wondering why he got transferred to [place] from [place] and I told him to basically increase his strength and stamina, so he can go home sooner. I told him that he participated very well with therapy yesterday and if he continues doing that, he will be going home soon. He was very happy with that. PHYSICAL EXAMINATION: VITAL SIGNS: This morning reveal blood pressure 109/59, pulse 71, respirations 18 to 20, O2 saturation on room air 97%, and T-max 97.4. GENERAL: This is a well-developed, well-nourished, very pleasant and calm, 74-year-old black male, in no apparent distress at this time. HEENT: Reveals normocephalic and nontraumatic cranium. The pupils are equally round and reactive. Extraocular movements are intact. Nose and throat are slightly dry. NECK: Supple without masses, nodes, or bruits. CHEST: Clear to auscultation without rales, rhonchi, or wheezes. HEART: Reveals an irregular rate and rhythm, but rate controlled. GI: Soft, nontender without organomegaly. Normal bowel sounds are noted. No rebound or guarding is noted. : Deferred. EXTREMITIES: Reveal no clubbing, cyanosis, or edema. NEUROLOGIC: No focal deficits are noted. PSYCHIATRIC: The patient has not had any significant hallucinations noted by the nurses. His affect is normal. ASSESSMENT: 1. Acute kidney injury on chronic kidney injury, resolved. 2. Acute on chronic normocytic anemia, stable. 3. Chronic atrial fibrillation, which is rate controlled. 4. Hypertension, which is stable. 5. Ejection fraction of 30% to 40% per echo last month. 6. Diabetes, type 2, stable. 7. Dementia, alert and oriented to person and place, but not to time today. 8. Schizophrenia, stable. 9. Generalized weakness. PLAN: 1. Continue present medications. 2. Continue to monitor the patient's blood pressure closely and adjust medications as needed. 3. Continue to monitor the patient's diabetes with Accu-Cheks a.c. and at bedtime. 4. Continue to follow the patient closely for signs and symptoms of congestive heart failure. 5. Continue to monitor the patient's renal and anemia indices, and we will do labs tomorrow morning. 6. Continue to encourage the patient to eat and to drink well. 7. Continue to monitor the patient for any hallucinations. 8. Stress ulcer prophylaxis. 9. Decubitus precautions. 10. DVT prophylaxis per Primary Service. 11. Physical therapy and occupational therapy. Job ID: [id number]
[2019-12-29] MEDS: Potassium Chloride 20 MEQ TAB PO SCH (08:49)
[2019-12-29] MEDS: Apixaban 5 MG TAB PO SCH ×2 (08:49→20:52)
[2019-12-29] MEDS: metFORMIN 500 MG TAB PO SCH ×2 (08:49→20:52)
[2019-12-29] MEDS: Carvedilol 6.25 MG TAB PO SCH ×2 (08:49→17:03)
[2019-12-29] MEDS: Pantoprazole 40 MG GRANULES PACKET PO SCH (08:49)
[2019-12-29] MEDS: Furosemide 20 MG TAB PO SCH (08:50)
[2019-12-29] MEDS: clonazePAM 0.5 MG TAB PO SCH ×2 (08:50→20:53)
[2019-12-29] MEDS: Ferrous Sulfate 325 MG TAB PO SCH (08:50)
[2019-12-29] MEDS: Amiodarone 200 MG TAB PO SCH (08:52)
[2019-12-29] MEDS: Atorvastatin Calcium 20 MG TAB PO SCH (20:53)
[2019-12-29] MEDS: Aripiprazole 10 MG TAB PO SCH (20:53)
[2019-12-29] MEDS: Donepezil HCl 5 MG TAB PO SCH (20:56)
[2019-12-30] MEDS: Potassium Chloride 20 MEQ TAB PO SCH (09:01)
[2019-12-30] MEDS: Apixaban 5 MG TAB PO SCH ×2 (09:01→20:24)
[2019-12-30] MEDS: Amiodarone 200 MG TAB PO SCH (09:01)
[2019-12-30] MEDS: Carvedilol 6.25 MG TAB PO SCH ×2 (09:01→16:53)
[2019-12-30] MEDS: Furosemide 20 MG TAB PO SCH (09:01)
[2019-12-30] MEDS: Ferrous Sulfate 325 MG TAB PO SCH (09:01)
[2019-12-30] MEDS: metFORMIN 500 MG TAB PO SCH ×2 (09:01→20:24)
[2019-12-30] MEDS: Pantoprazole 40 MG GRANULES PACKET PO SCH (09:01)
[2019-12-30] MEDS: clonazePAM 0.5 MG TAB PO SCH ×2 (09:02→20:23)
[2019-12-30] MEDS: Aripiprazole 10 MG TAB PO SCH (20:24)
[2019-12-30] MEDS: Atorvastatin Calcium 20 MG TAB PO SCH (20:24)
[2019-12-30] MEDS: Donepezil HCl 5 MG TAB PO SCH (20:24)
--- NOTE | 2019-12-30 21:38 | PRG ---
DATE OF SERVICE: 12/30/2019 SUBJECTIVE: Mr. Hickey is a well-developed, well-nourished, 74-year-old black male. Initially, he was seen in the emergency room at [facility], found to have acute injury of his kidney with dehydration. He is septic secondary to urinary tract infection. He was transferred to [facility] and stayed there for approximately about a week. Eventually, he was stabilized, now transferred back to [facility] for physical therapy and occupational therapy to increase his strength and his stamina. He continues to eat fairly well. He is actually very mild mannered. He did refuse his blood work this morning because he thought he has been having blood work every day. When I discussed with him, he was very agreeable to have his blood work done tomorrow. He has no concerns or complaints today. OBJECTIVE: VITAL SIGNS: Today reveal blood pressure this morning was 124/75, pulse 70, respirations 18, O2 saturation 97% on room air, T-max was 97.6. GENERAL: This is a well-developed, well-nourished black male, in no apparent distress at this time. He is actually very pleasant, and we have no problems with him at all. HEENT: Normocephalic and nontraumatic cranium. Pupils are equally round and reactive. Extraocular movements intact. Nose and throat are slightly dry. NECK: Supple without masses, nodes, or bruits. CHEST: Clear to auscultation. No rales. No rhonchi are noted. HEART: Reveals an irregular rate and rhythm, but rate controlled. ABDOMEN: Stomach is soft, nontender without any organomegaly. Normal bowel sounds are noted in all 4 quadrants. No rebound or guarding is noted. GENITOURINARY: Deferred. EXTREMITIES: Reveal no clubbing, cyanosis, or edema. NEUROLOGIC: The patient has no focal deficits. He has not had any significant hallucinations, and his affect has been normal. ASSESSMENT: 1. [id number] kidney injury with dehydration, resolved. 2. [id number]-plvfqrc normocytic anemia, stable. 3. Chronic atrial fibrillation, which is rate controlled. 4. Hypertension. 5. Ejection fraction 30% to 40% per echo last month. 6. Diabetes type 2, which is fairly stable. 7. Dementia. The patient is alert and oriented to person and place and time today. 8. Schizophrenia. 9. Generalized weakness. PLAN: 1. We will continue to monitor the patient's blood pressure closely and adjust medications as needed. 2. Continue to monitor the patient's diabetes with Accu-Cheks a.c. and at bedtime. 3. Continue to monitor the patient closely for signs and symptoms of congestive heart failure. 4. We will monitor the patient's renal status and anemia and repeat his labs tomorrow morning. 5. Encourage him to continue to eat and drink well. 6. Continue to monitor the patient for any hallucinations. 7. Stress ulcer prophylaxis. 8. Decubitus precautions. 9. Continue physical therapy and occupational therapy. Job ID: [id number]
[2019-12-31] MEDS: Potassium Chloride 20 MEQ TAB PO SCH (08:57)
[2019-12-31] MEDS: clonazePAM 0.5 MG TAB PO SCH ×2 (08:57→20:11)
[2019-12-31] MEDS: Pantoprazole 40 MG GRANULES PACKET PO SCH (08:57)
[2019-12-31] MEDS: metFORMIN 500 MG TAB PO SCH ×2 (08:58→20:11)
[2019-12-31] MEDS: Ferrous Sulfate 325 MG TAB PO SCH (08:58)
[2019-12-31] MEDS: Apixaban 5 MG TAB PO SCH ×2 (08:58→20:11)
[2019-12-31] MEDS: Amiodarone 200 MG TAB PO SCH (08:58)
[2019-12-31] MEDS: Furosemide 20 MG TAB PO SCH (08:58)
[2019-12-31] MEDS: Carvedilol 6.25 MG TAB PO SCH ×2 (08:59→17:25)
--- NOTE | 2019-12-31 14:03 | PRG ---
DATE OF SERVICE: 12/31/2019 SUBJECTIVE: Mr. Hickey is a 74-year-old white male with dementia. He was found to have an acute injury of his kidney with dehydration. He was septic and he had to be transferred to [facility], where he stayed there about a week. Eventually, he was stabilized, now he was transferred back to [facility] for physical therapy and occupational therapy to increase his strength and his stamina. He continues to eat fairly well. He is actually doing very well and not agitated. He is following directions well. He states he is doing well and is eating well and is not constipated. He is glad that he is getting therapies, so he can go home. OBJECTIVE: VITAL SIGNS: Today reveal blood pressure this morning 145/77, pulse 55 to 69, respirations 18 to 20, O2 saturation 97% on room air, T-max 97.6. GENERAL: He is a well-developed, well-nourished, pleasant, 74-year-old, black male, in no apparent distress at this time. HEENT: Reveals normocephalic and nontraumatic cranium. Pupils are equal, round, and reactive. Extraocular movements are intact. Nose and throat are slightly dry. NECK: Supple without masses, nodes, or bruits. CHEST: Clear to auscultation. HEART: Reveals an irregular rate and rhythm, but it is rate controlled. ABDOMEN: Soft and nontender. Normal bowel sounds are noted in all 4 quadrants. No rebound or guarding is noted. : Deferred. EXTREMITIES: Reveal no clubbing, cyanosis, or edema. NEUROLOGIC: The patient has no focal deficits and he is resting quietly and easily arousable. The nurses do not report any hallucinations. His affect has been normal and calm. ASSESSMENT: 1. Acute on chronic kidney injury with dehydration, resolved. 2. Acute on chronic normocytic anemia, stable. 3. Chronic atrial fibrillation, which is rate controlled. 4. Hypertension, stable. 5. Ejection fraction 34% per echo last month. 6. Diabetes type 2, stable. 7. Dementia. The patient is alert, oriented to person and place and time today. 8. Schizophrenia. 9. Generalized weakness. PLAN: 1. We will continue to monitor the patient's diabetes with Accu-Cheks before meals and at bedtime. 2. We will continue to monitor the patient's blood pressure closely and adjust medications as needed. 3. Continue to monitor the patient closely for any signs or symptoms of CHF. 4. Monitor the patient's renal status and anemia, and repeat his labs as needed. 5. Encourage the patient to continue to eat and drink well. 6. Continue to monitor the patient for hallucination. 7. Stress ulcer prophylaxis. 8. Decubitus precautions. 9. Continue physical therapy and occupational therapy. Job ID: [id number]
[2019-12-31] MEDS: Aripiprazole 10 MG TAB PO SCH (20:10)
[2019-12-31] MEDS: Donepezil HCl 5 MG TAB PO SCH (20:10)
[2019-12-31] MEDS: Atorvastatin Calcium 20 MG TAB PO SCH (20:11)
[2020-01-01] MEDS: Ferrous Sulfate 325 MG TAB PO SCH (08:25)
[2020-01-01] MEDS: Carvedilol 6.25 MG TAB PO SCH ×2 (08:25→16:39)
[2020-01-01] MEDS: Potassium Chloride 20 MEQ TAB PO SCH (08:25)
[2020-01-01] MEDS: Apixaban 5 MG TAB PO SCH ×2 (08:26→20:52)
[2020-01-01] MEDS: Furosemide 20 MG TAB PO SCH (08:26)
[2020-01-01] MEDS: Amiodarone 200 MG TAB PO SCH (08:26)
[2020-01-01] MEDS: metFORMIN 500 MG TAB PO SCH ×2 (08:26→20:53)
[2020-01-01] MEDS: clonazePAM 0.5 MG TAB PO SCH ×2 (08:26→20:52)
--- NOTE | 2020-01-01 18:01 | PRG ---
DATE OF SERVICE: 01/01/2020 SUBJECTIVE: Mr. Hickey is resting in bed. He denies any questions or concerns. He is hard of hearing. No family at bedside. OBJECTIVE: VITAL SIGNS: He is afebrile, heart rate 61, respirations 20, oxygen saturation 98% on room air, blood pressure 132/81. CARDIOVASCULAR SYSTEM: S1 and S2 plus. RESPIRATORY SYSTEM: Normal vesicular breath sounds. ABDOMEN: Soft and nontender. Bowel sounds heard in all quadrants. EXTREMITIES: Without cyanosis or clubbing. CENTRAL NERVOUS SYSTEM: Generalized weakness. Otherwise nonfocal. IMPRESSION: 1. Atrial fibrillation. 2. Hypertension. 3. Chronic systolic congestive heart failure with ejection fraction of 35%. 4. Diabetes mellitus, type 2. 5. Dementia. 6. Deconditioning. PLAN: 1. Continue current medications. 2. 1800-calorie, heart healthy, ADA diet. 3. Accu-Cheks with sliding scale coverage. 4. DVT prophylaxis with PlexiPulses. 5. Decubitus precautions. 6. Stress ulcer prophylaxis. 7. Encourage p.o. intake. 8. Therapy. Job ID: [id number]
[2020-01-01] MEDS: Aripiprazole 10 MG TAB PO SCH (20:52)
[2020-01-01] MEDS: Atorvastatin Calcium 20 MG TAB PO SCH (20:52)
[2020-01-01] MEDS: Donepezil HCl 5 MG TAB PO SCH (20:53)
[2020-01-02] MEDS: Carvedilol 6.25 MG TAB PO SCH ×2 (08:21→16:41)
[2020-01-02] MEDS: Amiodarone 200 MG TAB PO SCH (08:22)
[2020-01-02] MEDS: Potassium Chloride 20 MEQ TAB PO SCH (08:22)
[2020-01-02] MEDS: Ferrous Sulfate 325 MG TAB PO SCH (08:22)
[2020-01-02] MEDS: clonazePAM 0.5 MG TAB PO SCH ×2 (08:23→21:09)
[2020-01-02] MEDS: Furosemide 20 MG TAB PO SCH (08:23)
[2020-01-02] MEDS: metFORMIN 500 MG TAB PO SCH ×2 (08:23→21:09)
[2020-01-02] MEDS: Apixaban 5 MG TAB PO SCH ×2 (08:23→21:09)
--- NOTE | 2020-01-02 15:48 | PRG ---
DATE OF SERVICE: 01/02/2020 SUBJECTIVE: Mr. Hickey is sleeping, but arousable. He denies any questions or concerns. No family at bedside. Discussed with Nursing. OBJECTIVE: VITAL SIGNS: He is afebrile. Heart rate is 65, respirations 16, oxygen saturation 98% on room air, blood pressure 154/80. CARDIOVASCULAR: S1 and S2 plus. RESPIRATORY: Normal vesicular breath sounds. ABDOMEN: Soft and nontender. Bowel sounds heard in all quadrants. EXTREMITIES: Without cyanosis or clubbing. CENTRAL NERVOUS SYSTEM: Generalized weakness, otherwise nonfocal. Mild cognitive deficits. LABORATORY DATA: Blood sugars are 114, 121, 98 and 150. IMPRESSION: 1. Diabetes mellitus, type 2. 2. Hypertension. 3. Chronic systolic congestive heart failure. 4. Atrial fibrillation. 5. Dementia. 6. Deconditioning. PLAN: 1. Continue current medications. 2. 1800 calorie heart healthy ADA diet. 3. Accu-Cheks with sliding scale coverage. 4. Physical therapy. 5. Routine laboratory values. 6. Monitor heart rate and rhythm. 7. Dr. Esther goddard [facility]. Job ID: [id number]
[2020-01-02] MEDS: Aripiprazole 10 MG TAB PO SCH (21:08)
[2020-01-02] MEDS: Donepezil HCl 5 MG TAB PO SCH (21:09)
[2020-01-02] MEDS: Atorvastatin Calcium 20 MG TAB PO SCH (21:09)
[2020-01-03] MEDS: Carvedilol 6.25 MG TAB PO SCH ×2 (08:26→17:22)
[2020-01-03] MEDS: metFORMIN 500 MG TAB PO SCH ×2 (08:27→20:21)
[2020-01-03] MEDS: Furosemide 20 MG TAB PO SCH (08:27)
[2020-01-03] MEDS: Ferrous Sulfate 325 MG TAB PO SCH (08:27)
[2020-01-03] MEDS: Potassium Chloride 20 MEQ TAB PO SCH (08:27)
[2020-01-03] MEDS: Amiodarone 200 MG TAB PO SCH (08:28)
[2020-01-03] MEDS: clonazePAM 0.5 MG TAB PO SCH ×2 (08:28→20:17)
[2020-01-03] MEDS: Apixaban 5 MG TAB PO SCH ×2 (08:28→20:18)
--- NOTE | 2020-01-03 13:31 | PRG ---
DATE OF SERVICE: 01/03/2020 SUBJECTIVE: Mr. Hickey is a well-developed 74-year-old black male with dementia. Unfortunately, he became significantly dehydrated to the point he became septic. He had acute injury to his kidney. He was transferred to [facility], where we stayed about a week. The patient was stabilized and now was transferred back to [facility] for physical therapy and occupational therapy to increase his strength and stamina. He is actually doing very well and eating well. He is drinking fairly well. He is very confused. He does have significant dementia. Unfortunately, he cannot remember anything, but he will follow directions well. OBJECTIVE: VITAL SIGNS: This morning reveal blood pressure of 135/66, pulse 62 , respirations 16, O2 sat 97% on room air, and T-max 96.7. GENERAL: This is a well-developed, well-nourished, minimally overweight black male, in no apparent distress at this time. He is oriented to person and place. HEENT: Normocephalic and nontraumatic cranium. Pupils equally round and reactive. Extraocular movements are intact. Nose and throat are slightly dry. NECK: Supple without masses, nodes or bruits. CHEST: Clear to auscultation. No rales, rhonchi, wheezes are heard. HEART: Irregular rate and rhythm, but rate controlled. ABDOMEN: Soft, nontender without organomegaly. Normal bowel sounds are noted in all 4 quadrants. No rebound or guarding is noted. : Deferred. EXTREMITIES: No clubbing, cyanosis or edema. NEUROLOGIC: The patient has no focal deficits. He is resting quietly and awake and is eating his breakfast well. He has not had any hallucinations per nurse's report. His affect is both normal and calm. The patient was supposed to have lab done either or Friday and apparently he refused both of them. We will reorder his labs for tomorrow morning. ASSESSMENT: 1. Acute on chronic kidney injury with dehydration, resolved. 2. Acute on chronic normocytic anemia, stable. 3. Chronic atrial fibrillation, which is rate controlled. 4. Hypertension, stable. 5. Ejection fraction of 34% per echo last month. 6. Diabetes, type 2. 7. Dementia. 8. Schizophrenia. 9. Generalized weakness. PLAN: 1. Continue to monitor the patient's diabetes with Accu-Cheks a.c. and at bedtime. 2. Continue to monitor the patient's blood pressure closely and adjust medications as needed. 3. Continue to monitor the patient for signs and symptoms of CHF. 4. Continue to monitor the patient's renal status and anemia. 5. Repeat labs tomorrow morning since the patient has been refusing. 6. We did talk with the patient about not refusing labs. 7. Continue to monitor the patient for hallucination. 8. Stress ulcer prophylaxis. 9. Decubitus precautions. 10. Continue physical therapy and occupational therapy. 11. Possible discharge this week. Job ID: [id number] MTDD
[2020-01-03] MEDS: Donepezil HCl 5 MG TAB PO SCH (20:18)
[2020-01-03] MEDS: Aripiprazole 10 MG TAB PO SCH (20:19)
[2020-01-03] MEDS: Atorvastatin Calcium 20 MG TAB PO SCH (20:21)
[2020-01-04 05:20] LABS: #Basophils 0.1 thou/uL (0.0-0.2); #Lymphocytes 2.3 thou/uL (1.20-3.40); #Monocytes 0.5 thou/uL (0.11-0.59); #Neutrophils 5.5 thou/uL (1.40-6.50); %Eosinophils 0.3 % (0.0-10.0); %Lymphocytes 27.4 % (21.0-51.0); %Monocytes 6.3 % (0.0-10.0); %Neutrophils 64.9 % (42.0-75.0); Hemoglobin 11.1 g/dL (14.0-18.0); Mean Corpuscular Hemoglobin 30.4 pg (27.0-31.0); Mean Corpuscular Volume 95.2 fL (78.0-98.0); Mean Platelet Volume 6.8 fL (7.4-10.4); Platelet Count 257 thou/uL (130-400); RBC Distribution Width 15.1 % (11.5-14.5); Red Blood Cell (RBC) Count 3.63 mill/uL (4.70-6.10); White Blood Cell (WBC) Count 8.4 thou/uL (4.8-10.8)
[2020-01-04 05:41] LABS: ALT (SGPT) 11 U/L (8-55); AST (SGOT) 12 U/L (5-34); Albumin 3.5 g/dL (3.4-4.8); Alkaline Phosphatase 72 U/L (40-110); Anion Gap 14 mmol/L (10-20); BUN (Urea Nitrogen) 15 mg/dL (8.4-25.7); Bilirubin, Total 0.2 mg/dL (0.2-1.2); Calc. Creatinine Clearance 99 mL/min (70-130); Calcium 8.8 mg/dL (7.8-10.44); Carbon Dioxide 24 mmol/L (23-31); Chloride 105 mmol/L (98-107); Estimated GFR-MDRD Greater than 90; Globulin 3.5 g/dL (2.4-3.5); Glucose 90 mg/dL (83-110); Potassium 3.9 mmol/L (3.5-5.1); Sodium 139 mmol/L (136-145)
[2020-01-04] MEDS: metFORMIN 500 MG TAB PO SCH ×2 (09:48→20:20)
[2020-01-04] MEDS: clonazePAM 0.5 MG TAB PO SCH ×2 (09:48→20:20)
[2020-01-04] MEDS: Ferrous Sulfate 325 MG TAB PO SCH (09:48)
[2020-01-04] MEDS: Potassium Chloride 20 MEQ TAB PO SCH (09:49)
[2020-01-04] MEDS: Amiodarone 200 MG TAB PO SCH (09:49)
[2020-01-04] MEDS: Carvedilol 6.25 MG TAB PO SCH ×2 (09:49→16:48)
[2020-01-04] MEDS: Apixaban 5 MG TAB PO SCH ×2 (09:49→20:20)
[2020-01-04] MEDS: Furosemide 20 MG TAB PO SCH (09:49)
[2020-01-04] MEDS: Atorvastatin Calcium 20 MG TAB PO SCH (20:20)
[2020-01-04] MEDS: Donepezil HCl 5 MG TAB PO SCH (20:20)
[2020-01-04] MEDS: Aripiprazole 10 MG TAB PO SCH (20:20)
--- NOTE | 2020-01-04 21:46 | PRG ---
DATE OF SERVICE: 01/04/2020 SUBJECTIVE: Mr. Hickey is a 74-year-old black male with dementia. He became significantly dehydrated and became septic. He had acute kidney injury and had to be transferred to [facility] where he stayed about a week. Eventually, he was stabilized, now transferred back to [facility] for physical therapy and occupational therapy to increase his strength and stamina. He is doing much better. Eating well and getting stronger. I did get a call from Physical Therapy who states he is still contact guard, but much improved and pretty much reaching his maximum. He will continue to need assistance at home because of his dementia to feed him and cue him, when to eat and when to exercise and how to dress and how to drink. VITAL SIGNS: Today reveal blood pressure this morning 135/66, pulse 79 to 81, respirations 18 to 20, O2 saturation 92% to 98% on room air, T-max 97.8. LABORATORY DATA: Reveals white count of 8400 with a hemoglobin 11.1, hematocrit 34.6, and platelet count 257,000. Chemistries reveal sodium 139, potassium 3.9, chloride 105, carbon dioxide 24. BUN is 15, creatinine 0.80. GFR is greater than 90. Glucose this morning fasting was 98 and before supper 116. Albumin is 3.5. BNP was 68.8 and prealbumin was 22. PHYSICAL EXAMINATION: GENERAL: This is a well-developed, well-nourished 74-year-old black male, in no apparent distress at this time. HEENT: Reveals normocephalic and nontraumatic cranium. Pupils equally round and reactive. Extraocular movements intact. Nose and throat are slightly dry. NECK: Supple without masses, nodes, or bruits. CHEST: Clear to auscultation. No rales, rhonchi, wheezes, or cough is heard. HEART: Reveals irregular rate and rhythm, but rate controlled. ABDOMEN: Soft, nontender without organomegaly. Normal bowel sounds noted in all 4 quadrants. No rebound or guarding is noted. GENITOURINARY: Deferred. EXTREMITIES: Reveal no clubbing, cyanosis, or edema. NEUROLOGIC: The patient has no focal deficits. He is resting quietly and awake and eating his breakfast again this morning. He has no significant hallucinations and has been calm. LABORATORY DATA: He did have lab work done this morning, which has been reviewed as above. ASSESSMENT: 1. Acute on chronic injury with dehydration, resolved. 2. Acute on chronic normocytic anemia, stable. 3. Chronic atrial fibrillation, which is rate controlled. 4. Hypertension, stable. 5. Ejection fraction of 34% per echo last month. 6. Diabetes type 2, stable. 7. Dementia. 8. Schizophrenia. 9. Generalized weakness. PLAN: 1. Continue on the patient's blood pressure closely and adjust medications as needed. 2. Continue to monitor the patient for signs and symptoms of congestive heart failure. 3. Continue to monitor the patient's diabetes with Accu-Cheks before meals and at bedtime. 4. Continue to monitor the patient's renal status and anemia. 5. Consider discharge or Friday. 6. Continue to monitor the patient for hallucinations. 7. Stress ulcer prophylaxis. 8. Decubitus precautions. 9. Continue physical therapy and occupational therapy. 10. Plan is discharge at the end of the week. Job ID: [id number]
[2020-01-05] MEDS: Carvedilol 6.25 MG TAB PO SCH ×2 (07:57→17:29)
[2020-01-05] MEDS: Ferrous Sulfate 325 MG TAB PO SCH (07:57)
[2020-01-05] MEDS: Potassium Chloride 20 MEQ TAB PO SCH (07:58)
[2020-01-05] MEDS: clonazePAM 0.5 MG TAB PO SCH ×2 (08:00→20:26)
[2020-01-05] MEDS: Amiodarone 200 MG TAB PO SCH (08:00)
[2020-01-05] MEDS: Apixaban 5 MG TAB PO SCH ×2 (08:00→20:26)
[2020-01-05] MEDS: metFORMIN 500 MG TAB PO SCH ×2 (08:00→20:26)
[2020-01-05] MEDS: Furosemide 20 MG TAB PO SCH (08:00)
--- NOTE | 2020-01-05 12:31 | PRG ---
DATE OF SERVICE: 01/05/2020 HISTORY OF PRESENT ILLNESS: Mr. Hickey is a well-developed 74-year-old black male with dementia. He became significantly dehydrated and became septic. He had acute kidney injury. He had to be transferred to [facility] where he stayed about a week and was on IV antibiotics. Eventually, he was stabilized, now transferred back to [facility] for physical therapy and occupational therapy to increase his strength and stamina. SUBJECTIVE: The patient is doing well. He is eating better and getting much stronger. He is able to walk 300+ feet with standby assistance. He unfortunately has quite a bit of dementia and he has to be basically told what to do, and when to do it. He has been acute on when to eat, what to drink how much to drink, etc. He does follow directions and fairly well. He has reached his maximum benefit of medical benefit and is ready for discharge on Friday. OBJECTIVE: VITAL SIGNS: Today reveal blood pressure this morning 122/78, pulse 72, respirations 18 to 20, O2 saturation 97% on room air, T-max 96.4. GENERAL: On physical examination, this is a well-developed, well-nourished, pleasant, and calm 74-year-old black male, in no apparent distress at this time. HEENT: Reveal normocephalic, nontraumatic cranium. Pupils equally round, reactive. Extraocular movements are intact. Nose and throat are slightly dry. NECK: Supple without masses, nodes, or bruits. CHEST: Clear to auscultation. No rales, rhonchi, wheezes, or cough is heard. HEART: Reveals an irregularly irregular rate and rhythm, which is rate controlled. ABDOMEN: Soft, nontender without organomegaly. Normal bowel sounds are noted in all 4 quadrants. No rebound or guarding is noted. The patient is eating well. : Deferred. EXTREMITIES: Reveal no clubbing, cyanosis, or edema. NEUROLOGIC: The patient has no focal deficits. He had to be pretty much acute on what to do and how much drink. He has no significant hallucinations. He has been very calm. ASSESSMENT: 1. Acute on chronic kidney injury with dehydration, resolved. 2. Acute on chronic normocytic anemia, stable. 3. Chronic atrial fibrillation, rate controlled. 4. Hypertension, stable. 5. Ejection fraction 34% per echo last month. 6. Diabetes type 2, stable. 7. Dementia. 8. Schizophrenia. 9. Generalized weakness. PLAN: 1. Continue to monitor the patient's blood pressure closely. Adjust medications as needed. 2. Continue to monitor the patient for signs and symptoms of congestive heart failure. 3. Continue to monitor the patient's diabetes with Accu-Cheks before meals and at bedtime. 4. Continue to monitor the patient's renal status anemia. 5. Continue discharge planning for Friday. 6. Monitor the patient for hallucination. 7. Stress ulcer prophylaxis. 8. Decubitus precautions. 9. Continue PT and OT. I will call the patient's son and notify him that he will be discharged on Friday. Job ID: [id number] MTDD
[2020-01-05] MEDS: Atorvastatin Calcium 20 MG TAB PO SCH (20:26)
[2020-01-05] MEDS: Aripiprazole 10 MG TAB PO SCH (20:26)
[2020-01-05] MEDS: Donepezil HCl 5 MG TAB PO SCH (20:26)
[2020-01-06] MEDS: Ferrous Sulfate 325 MG TAB PO SCH (08:05)
[2020-01-06] MEDS: Carvedilol 6.25 MG TAB PO SCH ×2 (08:05→17:12)
[2020-01-06] MEDS: Apixaban 5 MG TAB PO SCH ×2 (08:06→20:27)
[2020-01-06] MEDS: clonazePAM 0.5 MG TAB PO SCH ×2 (08:06→20:28)
[2020-01-06] MEDS: Potassium Chloride 20 MEQ TAB PO SCH (08:06)
[2020-01-06] MEDS: Furosemide 20 MG TAB PO SCH (08:06)
[2020-01-06] MEDS: Amiodarone 200 MG TAB PO SCH (08:06)
[2020-01-06] MEDS: metFORMIN 500 MG TAB PO SCH ×2 (08:07→20:27)
--- NOTE | 2020-01-06 10:15 | PRG ---
DATE OF SERVICE: 01/06/2020 SUBJECTIVE: Mr. Hickey is a 74-year-old black male, who was septic. He was significantly dehydrated and had acute kidney injury. He was admitted to [facility]. After he was stabilized, he was transferred to [facility] for continued physical therapy and occupational therapy to increase his strength and stamina. The patient is doing extremely well, walking 300 to 400 feet with standby assistance. He has significant dementia and needs to be cued for everything including eating and drinking. I did talk with the patient's son yesterday and he will pick him up Friday at about 1 o'clock. I did tell him that his sister and nephew need to absolutely tell him to eat, tell him to drink, tell him to exercise so that he does not wind up dehydrated again with sepsis again. OBJECTIVE: VITAL SIGNS: Today reveal blood pressure 143/82, pulse 70 to 96, respirations 18, O2 saturation 96% on room air, T-max 97.6. GENERAL: On physical exam, this is a well-developed, well-nourished, very pleasant black male, in no apparent distress at this time. HEENT: Reveals normocephalic and nontraumatic cranium. Pupils are equal, round, and reactive. Extraocular movements are intact. Nose and throat are slightly dry. NECK: Supple without masses, nodes, or bruits. CHEST: Clear to auscultation. No rales, rhonchi, wheezes, or cough is heard. HEART: Reveals an irregularly irregular rate and rhythm, which is rate controlled. ABDOMEN: Soft, nontender without organomegaly. Normal bowel sounds are noted in all 4 quadrants. No rebound or guarding is noted. The patient continues to eat well. : Exam is deferred. EXTREMITIES: Reveal no clubbing, cyanosis, or edema. NEUROLOGIC: The patient has no focal deficits, but he has significant dementia. He has to be cued to do everything and to drink and to eat. He has no hallucinations. He has been very calm. ASSESSMENT: 1. Acute on chronic kidney injury with dehydration, resolved. 2. Acute on chronic normocytic anemia, stable. 3. Chronic atrial fibrillation, rate controlled. 4. Hypertension, stable, ejection fraction 34% per echo last month. 5. Diabetes type 2, under good control. 6. Dementia. 7. Schizophrenia. 8. Generalized weakness. PLAN: 1. Continue to monitor the patient's diabetes with Accu-Cheks a.c. and at bedtime. 2. Continue to monitor the patient for signs and symptoms of CHF. 3. Continue to monitor the patient's blood pressure closely and adjust medications as needed. 4. Continue to monitor the patient's renal status and his anemia status. 5. Continue discharge planning for discharge tomorrow after lunch. 6. Monitor the patient for hallucinations. 7. Stress ulcer prophylaxis. 8. Decubitus precautions. 9. Physical therapy and occupational therapy. Job ID: [id number]
[2020-01-06] MEDS: Aripiprazole 10 MG TAB PO SCH (20:26)
[2020-01-06] MEDS: Atorvastatin Calcium 20 MG TAB PO SCH (20:27)
[2020-01-06] MEDS: Donepezil HCl 5 MG TAB PO SCH (20:27)
[2020-01-07 05:20] LABS: Platelet Count 277 thou/uL (130-400)
[2020-01-07 07:25] VITALS: BP 131/82; TEMP 96.3
[2020-01-07] MEDS: clonazePAM 0.5 MG TAB PO SCH (08:28)
[2020-01-07] MEDS: Potassium Chloride 20 MEQ TAB PO SCH (08:29)
[2020-01-07] MEDS: Carvedilol 6.25 MG TAB PO SCH (08:29)
[2020-01-07] MEDS: metFORMIN 500 MG TAB PO SCH (08:29)
[2020-01-07] MEDS: Furosemide 20 MG TAB PO SCH (08:29)
[2020-01-07] MEDS: Apixaban 5 MG TAB PO SCH (08:30)
[2020-01-07] MEDS: Amiodarone 200 MG TAB PO SCH (08:30)
[2020-01-07] MEDS: Ferrous Sulfate 325 MG TAB PO SCH (08:30)
--- NOTE | 2020-01-09 19:30 | DIS ---
DATE OF ADMISSION: 12/27/2019 DATE OF DISCHARGE: 01/07/2020 HOSPITAL COURSE: Mr. Hickey is a pleasant 74-year-old demented black male, who was brought to the hospital and was found to be septic. He was dehydrated, had acute kidney injury, urinary tract infection. He was admitted to [facility], stabilized. Eventually, he was transferred to [facility] for physical therapy and occupational therapy to increase his strength and his stamina. The patient has actually done very well. He has significant dementia, but he follows instructions very well. Unfortunately, he does not initiate anything, especially if you tell him to drink he will drink, but if you ask him to drink so much per day, he will not remember to drink that. He is being discharged to home to the care of his son, but he lives with his sister and nephew. It is imperative and we did bring this up with the son that he instruct them to make sure that he drinks 40 to 60 ounces of liquids a day, actually hand it to him and watch that he drinks it. He will also have to be very persistent about getting him to take his medications. OBJECTIVE: VITAL SIGNS: Today reveal the patient's blood pressure is 131/82 this morning, pulse 57, respirations 22, O2 saturation 95% to 100% on room air, T-max 96.8. GENERAL: This is a well-developed, well-nourished, very pleasant 74-year-old black male, does reach his maximum medical benefit. HEENT: Normocephalic and nontraumatic cranium. Pupils are equally round and reactive. Extraocular movements are intact. Nose and throat are clear. NECK: Supple without masses, nodes, or bruits. CHEST: Clear to auscultation. No rales, no rhonchi, no wheezes are heard. No cough is noted. HEART: Reveals an irregularly irregular rate and rhythm, which is rate controlled at this time. ABDOMEN: Soft, and nontender. Normal bowel sounds are noted in all 4 quadrants. No rebound or guarding is noted. No CVA tenderness is noted. : Deferred. EXTREMITIES: Reveal no clubbing, cyanosis, or edema. NEUROLOGIC: The patient has no focal deficits. He does have significant dementia and has to be queued on pretty much all of his daily activities. He will have to have someone watching over him 24 hours a day. He has had no hallucinations. Generally, overall he has been very calm with rare agitation. ASSESSMENT: 1. Acute on chronic kidney injury with dehydration, resolved. 2. Acute on chronic normocytic anemia, stable and improved. 3. Chronic atrial fibrillation, which is rate controlled. 4. Hypertension, stable. 5. Ejection fraction 34% per echo done last month. 6. Diabetes type 2, under very good control. 7. Dementia, which is getting progressive. 8. Schizophrenia, which is stable. 9. Generalized weakness. DISCHARGE MEDICATIONS: Include the followin. Tylenol 650 q.4 hours p.r.n. 2. Amiodarone 200 mg daily. 3. Apixaban 5 mg b.i.d. 4. Abilify 10 mg at bedtime. 5. Atorvastatin 20 mg at bedtime. 6. Carvedilol 12.5 mg twice a day. 7. Donepezil 5 mg at bedtime. 8. Ferrous sulfate 325 mg once a day. 9. Lasix 20 mg every day. 10. Protonix 40 mg daily. 11. Potassium chloride 20 mEq daily. 12. Clonazepam 0.5 mg daily. 13. Metformin extended release 500 mg twice a day with food. PLAN: 1. The patient will be discharged to the care of his son and will stay with his sister and nephew. 2. They have been instructed to make sure that he drinks 60 to 80 ounces of liquids a day. 3. Continue to monitor his diabetes with Accu-Cheks at least once a day, but typically before meals and at bedtime. 4. Continue to monitor the patient for signs and symptoms of congestive heart failure including shortness of breath and increased edema. 5. Continue to monitor the patient's blood pressure and we will adjust medications if needed. 6. Monitor the patient's renal status and anemia status. 7. Monitor the patient for hallucinations. 8. Decubitus precautions. 9. Home health with [facility]. 10. Physical therapy and occupational therapy. 11. See me in 1 to 2 weeks for followup. Job ID: [id number]
== END 2020-01-07 14:25 | disposition home health service (06) | DRG 683 ==
LOC: NAV ACUTE 19:35
PROVIDERS: ADMIT Family Medicine; ATTEND Family Medicine
DX: N17.9 Acute kidney failure, unspecified (principal); I48.20 Chronic atrial fibrillation, unspecified; I50.22 Chronic systolic (congestive) heart failure; I13.0 Hypertensive heart and chronic kidney disease with heart failure and stage 1 through stage 4 chronic kidney disease, or unspecified chronic kidney disease; E86.0 Dehydration; F03.90 Unspecified dementia, unspecified severity, without behavioral disturbance, psychotic disturbance, mood disturbance, and anxiety; M19.90 Unspecified osteoarthritis, unspecified site; F20.9 Schizophrenia, unspecified; I48.0 Paroxysmal atrial fibrillation; J44.9 Chronic obstructive pulmonary disease, unspecified; E78.00 Pure hypercholesterolemia, unspecified; K21.9 Gastro-esophageal reflux disease without esophagitis; D63.1 Anemia in chronic kidney disease; N18.9 Chronic kidney disease, unspecified; E11.22 Type 2 diabetes mellitus with diabetic chronic kidney disease; Z79.4 Long term (current) use of insulin; Z79.01 Long term (current) use of anticoagulants
CPT/HCPCS: 36415; 36416; 80053; 83880; 84134; 85014; 85018; 85025; 85049

== ENCOUNTER 2020-04-06 20:40 | Emergency (ER) | payer MEDICARE ==
--- NOTE | 2020-04-06 21:26 | RAD ---
Chest AP view INDICATION: Syncope COMPARISON: December 22, 2019 chest radiograph FINDINGS: Lungs: Stable elevation the right hemidiaphragm. No acute infiltrate demonstrated. Cardiac silhouette: Stable mild cardiac megaly Pulmonary vasculature: Normal Pleural spaces: No pleural effusion or pneumothorax is demonstrated. Upper abdomen: No abnormality seen. Osseous structures: Stable chronic osseous changes Additional findings: None. IMPRESSION: No acute cardiopulmonary abnormality.
[2020-04-06 21:27] LABS: #Basophils 0.1 thou/uL (0.0-0.2); #Lymphocytes 1.6 thou/uL (1.20-3.40); #Monocytes 0.5 thou/uL (0.11-0.59); #Neutrophils 8.7 thou/uL (1.40-6.50); %Basophils 0.8 % (0.0-1.0); %Eosinophils 0.4 % (0.0-10.0); %Lymphocytes 14.8 % (21.0-51.0); %Monocytes 4.7 % (0.0-10.0); %Neutrophils 79.3 % (42.0-75.0); Hemoglobin 13.7 g/dL (14.0-18.0); Mean Corpuscular HGB CONC 33.5 g/dL (32.0-36.0); Mean Corpuscular Hemoglobin 31.5 pg (27.0-31.0); Mean Corpuscular Volume 94.3 fL (78.0-98.0); Mean Platelet Volume 7.6 fL (7.4-10.4); Platelet Count 269 thou/uL (130-400); RBC Distribution Width 14.4 % (11.5-14.5); Red Blood Cell (RBC) Count 4.33 mill/uL (4.70-6.10); White Blood Cell (WBC) Count 10.9 thou/uL (4.8-10.8)
--- NOTE | 2020-04-06 21:31 | CT ---
CT Brain WO Con: 04/06/2020 8:48 PM CLINICAL HISTORY: Syncope. IMAGING TECHNIQUE: Multiple CT images were obtained of the brain without IV contrast. COMPARISON: Prior exam dated December 22, 2019 FINDINGS: Mild motion artifact slightly limits image detail. BRAIN: Evidence of acute infarct: None. Evidence of chronic ischemic change:There is stable mild chronic small vessel white matter ischemic c hange. Remote lacunar infarct is seen in the region of the right globus pallidus, not as well seen on the prior examination likely related to volume averaging. There is mild generalized cerebral and c erebellar atrophy. Evidence of intracranial hemorrhage: None. Evidence of midline shift: Third ventricle and septum pellucidum are midline. Ventricles: Normal. No hydrocephalus. SKULL: Intact. VISUALIZED PARANASAL SINUSES: Clear. MASTOID AIR CELLS: Clear. EXTRACRANIAL SOFT TISSUES: Normal. IMPRESSION: No acute intracranial abnormality.
[2020-04-06 21:46] LABS: ALT (SGPT) 9 U/L (8-55); AST (SGOT) 12 U/L (5-34); Albumin 3.7 g/dL (3.4-4.8); Alkaline Phosphatase 78 U/L (40-110); Anion Gap 15 mmol/L (10-20); BUN (Urea Nitrogen) 16 mg/dL (8.4-25.7); Bilirubin, Total 0.3 mg/dL (0.2-1.2); Calc. Creatinine Clearance 0 mL/min (70-130); Calcium 8.4 mg/dL (7.8-10.44); Carbon Dioxide 19 mmol/L (23-31); Chloride 106 mmol/L (98-107); Estimated GFR-MDRD Greater than 90; Globulin 3.4 g/dL (2.4-3.5); Glucose 170 mg/dL (83-110); Potassium 3.9 mmol/L (3.5-5.1); Protein, Total 7.1 g/dL (5.8-8.1); Sodium 136 mmol/L (136-145)
[2020-04-06 21:55] LABS: Bilirubin Small (Negative); Blood, Urine Trace (Negative); Clarity Clear (Clear); Glucose, Urine (Dipstick) Negative (Negative); Ketone, Urine 15 mg/dL (Negative); Leukocyte Negative (Negative); Nitrite Negative (Negative); Protein, Urine (Dipstick) 30 mg/dL (Neg-Trace); Specific Gravity, Urine 1.025 (1.005-1.030); pH, Urine 5.5 (5.0-9.0)
[2020-04-06 21:59] LABS: Bacteria/HPF Rare-Few HPF (None Seen); Mucous/LPF 2+ LPF (<2+); RBC/HPF 0-3 HPF (0-3); WBC/HPF 0-3 HPF (0-3)
== END 2020-04-06 22:40 | disposition short-term general hospital (02) ==
LOC: NAV ERS 20:40
DX: R55 Syncope and collapse (principal); E87.2 Acidosis; F20.9 Schizophrenia, unspecified; E11.9 Type 2 diabetes mellitus without complications; I10 Essential (primary) hypertension; E78.5 Hyperlipidemia, unspecified; F03.90 Unspecified dementia, unspecified severity, without behavioral disturbance, psychotic disturbance, mood disturbance, and anxiety; Z79.84 Long term (current) use of oral hypoglycemic drugs; Z79.01 Long term (current) use of anticoagulants; Z79.899 Other long term (current) drug therapy; Z79.82 Long term (current) use of aspirin
CPT/HCPCS: 70450; 71045; 80053; 81003; 81015; 83880; 84484; 85025; 93005

== ENCOUNTER 2020-05-31 15:45 | Inpatient (IN) | payer MEDICARE ==
[2020-05-31] MEDS ORDERED: clonazePAM 0.5 MG TAB PO PRN (17:49)
[2020-05-31] MEDS ORDERED: Calcium Carbonate 500 MG ChewTAB PO PRN (17:52)
[2020-05-31] MEDS ORDERED: Bisacodyl 10 MG SUPP PR PRN (17:52)
[2020-05-31] MEDS ORDERED: Bisacodyl 5 MG TAB PO PRN (17:52)
[2020-05-31] MEDS ORDERED: cloNIDine 0.1 MG TAB PO PRN (17:52)
[2020-05-31] MEDS ORDERED: Loperamide HCl 2 MG CAP PO PRN (17:52)
[2020-05-31] MEDS ORDERED: Senokot S 8.6-50 MG TAB PO PRN (17:52)
[2020-05-31] MEDS: Aripiprazole 10 MG TAB PO SCH (21:24)
[2020-05-31] MEDS: Atorvastatin Calcium 20 MG TAB PO SCH (21:25)
[2020-05-31] MEDS: Famotidine 20 MG TAB PO SCH (21:25)
[2020-05-31] MEDS: Donepezil HCl 5 MG TAB PO SCH (21:25)
[2020-05-31] MEDS: Apixaban 5 MG TAB PO SCH (21:26)
[2020-06-01] MEDS ORDERED: Aspirin 81 mg Enteric Coated Tablet PO SCH (09:00)
[2020-06-01] MEDS ORDERED: Potassium Chloride 20 MEQ TAB PO SCH (09:00)
[2020-06-01] MEDS ORDERED: FLU VACC QS2020-21(65YR UP)/PF 240 MCG/0.7 ML SYRINGE IM ONE (09:00)
[2020-06-01] MEDS: Folic Acid 1 MG TAB PO SCH (09:17)
[2020-06-01] MEDS: Famotidine 20 MG TAB PO SCH ×2 (09:17→21:39)
[2020-06-01] MEDS: Losartan 25 MG TAB PO SCH (09:17)
[2020-06-01] MEDS: Carvedilol 25 MG TAB PO SCH ×2 (09:17→17:59)
[2020-06-01] MEDS: Pantoprazole 40 MG GRANULES PACKET PO SCH (09:18)
[2020-06-01] MEDS: Amlodipine 5 MG TAB PO SCH (09:18)
[2020-06-01] MEDS: metFORMIN 500 MG TAB PO SCH ×2 (09:18→17:59)
[2020-06-01] MEDS: Apixaban 5 MG TAB PO SCH ×2 (09:18→21:39)
[2020-06-01] MEDS: Furosemide 20 MG TAB PO SCH (09:18)
--- NOTE | 2020-06-01 18:31 | HP ---
HISTORY OF PRESENT ILLNESS: A 75-year-old male admitted here to [facility] for continued PT and OT services. The patient was originally admitted to [facility] for complaints of shortness of breath. The patient was found to be in AFib with RVR, the patient has a history of this, also with a history of heart failure with reduced ejection fraction. The patient was also found to be COVID positive with pneumonia as well. CTA was performed for PE, which was negative, but did show the consolidation leading to the pneumonia diagnosis. The patient remained asymptomatic from his COVID throughout his hospital stay, his atrial fibrillation was brought back to rate control, and the patient was continued on diltiazem. He worked well with physical therapy and occupational therapy as an inpatient, however, continued to require more physical therapy and was transferred here to [facility] for continued services. On arrival to our facility, the patient was in no acute distress and he was doing well and continued to be well throughout the day and has no complaints today. PAST MEDICAL HISTORY: Diabetes type 2, hypertension, dementia, schizophrenia, heart failure with reduced ejection fraction, hyperlipidemia, COPD. PAST SURGICAL HISTORY: Heart catheterization and a pacemaker placed. FAMILY HISTORY: Noncontributory. SOCIAL HISTORY: Former smoker, quit 15 years ago. Reports previous EtOH use. Denies any illicit drug use. REVIEW OF SYSTEMS: Denies any cough, congestion, fever, chills, chest pain, palpitations, nausea, vomiting, diarrhea. OBJECTIVE: VITAL SIGNS: Temperature 98.6, respirations 20, pulse 68 to 79, O2 sats 100% on room air, and blood pressure 118/61 to 121/55. LABORATORY DATA: No new labs. ASSESSMENT: 1. Weakness, requiring inpatient physical therapy secondary to COVID pneumonia. 2. Hypertension. 3. Diabetes type 2. 4. Hyperlipidemia. 5. Dementia. 6. Schizophrenia. PLAN: 1. PT/OT consult for continued services. 2. Fall precautions. 3. Monitor the patient's respirations for any signs of COPD or heart failure exacerbation. 4. Continue current medications, however, the patient is refusing to take medications and will need to crush them. Therefore, I consulted Pharmacy to convert medications to formulations that can be crushed. I have also switched the diltiazem long-acting to diltiazem short-acting. 5. DVT and stress ulcer prophylaxis. 6. Decubitus precautions. 7. Fall precautions. 8. Continue COVID precautions until the end of day on 06/01 (the patient was originally diagnosed with COVID on 05/23 and will need 10 days of precautions). Job ID: [id number]
[2020-06-01] MEDS: Atorvastatin Calcium 20 MG TAB PO SCH (21:39)
[2020-06-01] MEDS: Donepezil HCl 5 MG TAB PO SCH (21:39)
[2020-06-01] MEDS: Aripiprazole 10 MG TAB PO SCH (21:39)
[2020-06-02 05:52] LABS: #Lymphocytes 1.2 thou/uL (1.20-3.40); #Monocytes 0.5 thou/uL (0.11-0.59); #Neutrophils 5.6 thou/uL (1.40-6.50); %Basophils 0.5 % (0.0-1.0); %Eosinophils 0.1 % (0.0-10.0); %Lymphocytes 15.9 % (21.0-51.0); %Monocytes 6.9 % (0.0-10.0); %Neutrophils 76.7 % (42.0-75.0); Hemoglobin 12.2 g/dL (14.0-18.0); Mean Corpuscular HGB CONC 32.5 g/dL (32.0-36.0); Mean Corpuscular Hemoglobin 30.8 pg (27.0-31.0); Mean Corpuscular Volume 94.7 fL (78.0-98.0); Mean Platelet Volume 6.3 fL (7.4-10.4); Platelet Count 321 thou/uL (130-400); RBC Distribution Width 13.1 % (11.5-14.5); Red Blood Cell (RBC) Count 3.95 mill/uL (4.70-6.10); White Blood Cell (WBC) Count 7.3 thou/uL (4.8-10.8)
[2020-06-02 06:09] LABS: ALT (SGPT) 9 U/L (8-55); AST (SGOT) 15 U/L (5-34); Albumin 3.4 g/dL (3.4-4.8); Alkaline Phosphatase 83 U/L (40-110); Anion Gap 13 mmol/L (10-20); BUN (Urea Nitrogen) 7 mg/dL (8.4-25.7); Bilirubin, Total 0.5 mg/dL (0.2-1.2); Calc. Creatinine Clearance 122 mL/min (70-130); Calcium 8.6 mg/dL (7.8-10.44); Carbon Dioxide 26 mmol/L (23-31); Chloride 105 mmol/L (98-107); Glucose 118 mg/dL (83-110); Protein, Total 7.4 g/dL (5.8-8.1); Sodium 140 mmol/L (136-145)
[2020-06-02] MEDS: Losartan 25 MG TAB PO SCH (08:41)
[2020-06-02] MEDS: Amlodipine 5 MG TAB PO SCH (08:42)
[2020-06-02] MEDS: Furosemide 20 MG TAB PO SCH (08:43)
[2020-06-02] MEDS: Aspirin Chewable 81 MG TAB PO SCH (08:43)
[2020-06-02] MEDS: Pantoprazole 40 MG GRANULES PACKET PO SCH (08:44)
[2020-06-02] MEDS: metFORMIN 500 MG TAB PO SCH ×2 (08:44→17:37)
[2020-06-02] MEDS: Folic Acid 1 MG TAB PO SCH (08:44)
[2020-06-02] MEDS: Acetaminophen 325 MG TAB PO PRN (08:44)
[2020-06-02] MEDS: Apixaban 5 MG TAB PO SCH ×2 (08:44→21:07)
[2020-06-02] MEDS: Famotidine 20 MG TAB PO SCH ×2 (08:44→21:06)
[2020-06-02] MEDS: Carvedilol 25 MG TAB PO SCH ×2 (08:44→17:36)
--- NOTE | 2020-06-02 18:46 | PRG ---
DATE OF SERVICE: 06/02/[address] Jeffery. SUBJECTIVE: The patient is awake and alert. He has had a rare cough with therapy, but has had mainly problems pocketing his food and not swallowing his pills. He has not been seen by Speech and does not have any overt respiratory distress. He has had 10 days since his COVID diagnosis and is out of isolation. OBJECTIVE: VITAL SIGNS: Blood pressure is 137/73, pulse 79, O2 saturation is 98% on room air. LUNGS: Clear. CARDIAC: Regular rhythm. ABDOMEN: Soft and nontender. ASSESSMENT: 1. Persistent problems with poor oral intake and dysphagia and may possibly need an IV, but we will hold n.p.o. except for medications tonight and order speech consult. 2. COVID-19 infection, greater than 10 days in isolation and had been removed. 3. Hypertension, controlled to goal. 4. Diabetes, type 2, controlled to goal. 5. Dementia. PLAN: 1. N.p.o. except for pills. 2. Speech Therapy consult. 3. Repeat basic metabolic profile in the a.m. if signs of dehydration, may start IV unless Speech allows to eat. Continue out of isolation as no evidence of COVID infection other than possible lack of appetite. Job ID: [id number]
[2020-06-02] MEDS: Aripiprazole 10 MG TAB PO SCH (21:07)
[2020-06-02] MEDS: Atorvastatin Calcium 20 MG TAB PO SCH (21:07)
[2020-06-02] MEDS: Donepezil HCl 5 MG TAB PO SCH (21:07)
[2020-06-03 05:34] LABS: Anion Gap 15 mmol/L (10-20); BUN (Urea Nitrogen) 8 mg/dL (8.4-25.7); Calc. Creatinine Clearance 117 mL/min (70-130); Calcium 8.3 mg/dL (7.8-10.44); Carbon Dioxide 24 mmol/L (23-31); Chloride 105 mmol/L (98-107); Glucose 109 mg/dL (83-110); Potassium 3.5 mmol/L (3.5-5.1); Sodium 140 mmol/L (136-145)
[2020-06-03] MEDS: Amlodipine 5 MG TAB PO SCH (08:23)
[2020-06-03] MEDS: Carvedilol 25 MG TAB PO SCH ×2 (08:23→17:58)
[2020-06-03] MEDS: metFORMIN 500 MG TAB PO SCH ×2 (08:23→17:58)
[2020-06-03] MEDS: Apixaban 5 MG TAB PO SCH ×2 (08:24→22:25)
[2020-06-03] MEDS: Furosemide 20 MG TAB PO SCH (08:24)
[2020-06-03] MEDS: Aspirin Chewable 81 MG TAB PO SCH (08:24)
[2020-06-03] MEDS: Folic Acid 1 MG TAB PO SCH (08:24)
[2020-06-03] MEDS: Famotidine 20 MG TAB PO SCH ×2 (08:24→22:26)
[2020-06-03] MEDS: Pantoprazole 40 MG GRANULES PACKET PO SCH (08:25)
[2020-06-03] MEDS: Losartan 25 MG TAB PO SCH (08:27)
--- NOTE | 2020-06-03 16:09 | PRG ---
DATE OF SERVICE: 06/03/2020 SUBJECTIVE: Mr. Hickey was resting in bed and denies any concerns. He was assessed by Speech Therapy and they recommend pureed diet with nectar thick liquids. No family at bedside. OBJECTIVE: VITAL SIGNS: He is afebrile, heart rate 93, respirations 22, blood pressure 125/68, and oxygen saturation 92% on room air. CARDIOVASCULAR SYSTEM: S1 and S2 plus. RESPIRATORY SYSTEM: Normal vesicular breath sounds. ABDOMEN: Soft and nontender. Bowel sounds heard in all quadrants. EXTREMITIES: Without cyanosis or clubbing. CENTRAL NERVOUS SYSTEM: Generalized weakness. LABORATORY VALUES: Blood sugars are 118, 97, and 125. Sodium 140, potassium 3.5, and BUN and creatinine are 8 and 0.71. IMPRESSION: 1. Diabetes mellitus type 2. 2. Hypertension. 3. Dyslipidemia. 4. Chronic obstructive pulmonary disease. 5. Chronic systolic congestive heart failure. 6. Recent COVID-19 infection and dysphagia. PLAN: 1. Continue current medications. 2. Pureed diet with nectar thick liquids on aspiration precautions. 3. Accu-Cheks with sliding scale coverage. 4. DVT prophylaxis - he is on Eliquis. 5. Decubitus precautions. 6. Stress ulcer prophylaxis. 7. Physical therapy. 8. Routine laboratory values. Job ID: [id number]
[2020-06-03] MEDS: Aripiprazole 10 MG TAB PO SCH (22:25)
[2020-06-03] MEDS: Donepezil HCl 5 MG TAB PO SCH (22:26)
[2020-06-03] MEDS: Atorvastatin Calcium 20 MG TAB PO SCH (22:26)
[2020-06-04] MEDS: Carvedilol 25 MG TAB PO SCH ×2 (08:18→17:14)
[2020-06-04] MEDS: Amlodipine 5 MG TAB PO SCH (08:19)
[2020-06-04] MEDS: Aspirin Chewable 81 MG TAB PO SCH (08:19)
[2020-06-04] MEDS: Apixaban 5 MG TAB PO SCH ×2 (08:19→21:19)
[2020-06-04] MEDS: metFORMIN 500 MG TAB PO SCH ×2 (08:19→17:15)
[2020-06-04] MEDS: Famotidine 20 MG TAB PO SCH ×2 (08:20→21:18)
[2020-06-04] MEDS: Folic Acid 1 MG TAB PO SCH (08:20)
[2020-06-04] MEDS: Losartan 25 MG TAB PO SCH (08:21)
[2020-06-04] MEDS: Pantoprazole 40 MG GRANULES PACKET PO SCH (08:22)
[2020-06-04] MEDS: Furosemide 20 MG TAB PO SCH (08:24)
--- NOTE | 2020-06-04 15:47 | PRG ---
DATE OF SERVICE: 06/04/2020 SUBJECTIVE: Mr. Hickey is sleeping, but arousable. He denies any questions or concerns. No family at bedside. OBJECTIVE: VITAL SIGNS: He is afebrile. Heart rate 83, respirations 22, oxygen saturation 93% on room air, and blood pressure 113/84. CARDIOVASCULAR SYSTEM: S1 and S2 plus. RESPIRATORY SYSTEM: Normal vesicular breath sounds. ABDOMEN: Soft, nontender. Bowel sounds heard in all quadrants. EXTREMITIES: Without cyanosis or clubbing. CENTRAL NERVOUS SYSTEM: Generalized weakness. LABORATORY DATA: Blood sugars are 125, 114, 150, 138, and 124. IMPRESSION: 1. Diabetes mellitus, type 2. 2. Hypertension. 3. Dyslipidemia. 4. Chronic obstructive pulmonary disease. 5. Chronic systolic congestive heart failure. 6. Recent COVID-19 infection. 7. Dysphagia. PLAN: 1. Continue current medications. 2. Pureed diet with nectar thick liquids and aspiration precautions. 3. Accu-Cheks with sliding scale coverage. 4. DVT prophylaxis-he is on Eliquis. 5. Decubitus precautions. 6. Stress ulcer prophylaxis. 7. Monitor respiratory status. 8. Physical therapy. 9. Dr. Prashant goddard [facility]. Job ID: [id number]
[2020-06-04] MEDS: Aripiprazole 10 MG TAB PO SCH (21:18)
[2020-06-04] MEDS: Atorvastatin Calcium 20 MG TAB PO SCH (21:19)
[2020-06-04] MEDS: Donepezil HCl 5 MG TAB PO SCH (21:19)
[2020-06-05] MEDS: Famotidine 20 MG TAB PO SCH ×2 (08:51→22:34)
[2020-06-05] MEDS: metFORMIN 500 MG TAB PO SCH ×2 (08:52→16:55)
[2020-06-05] MEDS: Aspirin Chewable 81 MG TAB PO SCH (08:52)
[2020-06-05] MEDS: Furosemide 20 MG TAB PO SCH (08:52)
[2020-06-05] MEDS: Amlodipine 5 MG TAB PO SCH (08:52)
[2020-06-05] MEDS: Carvedilol 25 MG TAB PO SCH ×2 (08:53→16:55)
[2020-06-05] MEDS: Losartan 25 MG TAB PO SCH (08:53)
[2020-06-05] MEDS: Apixaban 5 MG TAB PO SCH ×2 (08:53→22:35)
[2020-06-05] MEDS: Pantoprazole 40 MG GRANULES PACKET PO SCH (08:53)
[2020-06-05] MEDS: Folic Acid 1 MG TAB PO SCH (08:53)
[2020-06-05] MEDS ORDERED: Dextrose 50% Abboject 50 ML SYRINGE SLOW IVP PRN (19:40)
[2020-06-05] MEDS ORDERED: Dextrose 5% in Water 1,000 ML IV PRN (19:45)
[2020-06-05] MEDS ORDERED: HumaLOG 300 UNITS/3 ML VIAL SC PRN (19:45)
[2020-06-05] MEDS: Aripiprazole 10 MG TAB PO SCH (22:34)
[2020-06-05] MEDS: Donepezil HCl 5 MG TAB PO SCH (22:35)
[2020-06-05] MEDS: Atorvastatin Calcium 20 MG TAB PO SCH (22:35)
[2020-06-06] MEDS: metFORMIN 500 MG TAB PO SCH ×2 (08:52→17:54)
[2020-06-06] MEDS: Acetaminophen 325 MG TAB PO PRN (08:52)
[2020-06-06] MEDS: Aspirin Chewable 81 MG TAB PO SCH (08:53)
[2020-06-06] MEDS: Apixaban 5 MG TAB PO SCH ×2 (08:53→22:00)
[2020-06-06] MEDS: Furosemide 20 MG TAB PO SCH (08:53)
[2020-06-06] MEDS: Pantoprazole 40 MG GRANULES PACKET PO SCH (08:53)
[2020-06-06] MEDS: Amlodipine 5 MG TAB PO SCH (08:54)
[2020-06-06] MEDS: Losartan 25 MG TAB PO SCH (08:54)
[2020-06-06] MEDS: Folic Acid 1 MG TAB PO SCH (08:54)
[2020-06-06] MEDS: Famotidine 20 MG TAB PO SCH ×2 (08:55→22:00)
[2020-06-06] MEDS: Carvedilol 25 MG TAB PO SCH ×2 (08:55→17:54)
--- NOTE | 2020-06-06 13:14 | PRG ---
DATE OF SERVICE: 06/06/2020 SUBJECTIVE: Mr. Hickey is doing the same, just finished lunch. Denies any questions or concerns. OBJECTIVE: VITAL SIGNS: He is afebrile, heart rate 63, respirations 20, oxygen saturation 97% on room air, blood pressure 142/82. CARDIOVASCULAR: S1 and S2 plus. RESPIRATORY: Normal vesicular breath sounds. ABDOMEN: Soft and nontender. Bowel sounds heard in all quadrants. EXTREMITIES: Without cyanosis or clubbing. CENTRAL NERVOUS SYSTEM: Generalized weakness. LABORATORY DATA: Blood sugars are 192, 125, 140, 104, and 133. IMPRESSION: 1. Diabetes mellitus type 2. 2. Hypertension. 3. Dyslipidemia. 4. Chronic obstructive pulmonary disease. 5. Chronic systolic congestive heart failure. 6. Recent COVID-19 infection and dysphagia. PLAN: 1. Continue current medications. 2. 1800-calorie heart healthy ADA diet pureed with nectar thick liquids and aspiration precautions. 3. Accu-Cheks with sliding scale coverage. 4. DVT prophylaxis-he is on Eliquis. 5. Decubitus precautions. 6. Stress ulcer prophylaxis. 7. Physical therapy. 8. Routine laboratory values. Job ID: [id number]
[2020-06-06] MEDS: HumaLOG 300 UNITS/3 ML VIAL SC PRN (17:59)
[2020-06-06] MEDS: Aripiprazole 10 MG TAB PO SCH (22:00)
[2020-06-06] MEDS: Donepezil HCl 5 MG TAB PO SCH (22:00)
[2020-06-06] MEDS: Atorvastatin Calcium 20 MG TAB PO SCH (22:00)
[2020-06-07 05:38] LABS: Hemoglobin 11.8 g/dL (14.0-18.0); Platelet Count 445 thou/uL (130-400)
[2020-06-07 05:41] LABS: Calc. Creatinine Clearance 109 mL/min (70-130)
[2020-06-07] MEDS: Carvedilol 25 MG TAB PO SCH ×2 (08:13→17:04)
[2020-06-07] MEDS: metFORMIN 500 MG TAB PO SCH ×2 (08:13→17:04)
[2020-06-07] MEDS: Amlodipine 5 MG TAB PO SCH (08:13)
[2020-06-07] MEDS: Furosemide 20 MG TAB PO SCH (08:14)
[2020-06-07] MEDS: Famotidine 20 MG TAB PO SCH ×2 (08:14→20:29)
[2020-06-07] MEDS: Apixaban 5 MG TAB PO SCH ×2 (08:14→20:27)
[2020-06-07] MEDS: Pantoprazole 40 MG GRANULES PACKET PO SCH (08:14)
[2020-06-07] MEDS: Losartan 25 MG TAB PO SCH (08:14)
[2020-06-07] MEDS: Folic Acid 1 MG TAB PO SCH (08:14)
[2020-06-07] MEDS: Aspirin Chewable 81 MG TAB PO SCH (08:14)
--- NOTE | 2020-06-07 12:31 | PRG ---
DATE OF SERVICE: 06/07/2020 SUBJECTIVE: Mr. Hickey is actually working with therapy. Therapy states that this is his best day so far. The patient denies any concerns or questions. OBJECTIVE: VITAL SIGNS: He is afebrile, heart rate 86, respirations 18, oxygen saturation 95% on room air, and blood pressure 117/74. CARDIOVASCULAR SYSTEM: S1 and S2 plus. RESPIRATORY SYSTEM: Normal vesicular breath sounds. ABDOMEN: Soft and nontender. Bowel sounds heard in all quadrants. EXTREMITIES: Without cyanosis or clubbing. CENTRAL NERVOUS SYSTEM: Generalized weakness. IMPRESSION: 1. Diabetes mellitus type 2. 2. Hypertension. 3. Dyslipidemia. 4. Chronic obstructive pulmonary disease. 5. Chronic systolic congestive heart failure. 6. Recent COVID-19 infection. 7. Dysphagia. PLAN: 1. Continue current medications. 2. 1800 calorie heart healthy ADA diet. 3. Aspiration precautions. 4. Accu-Cheks with sliding scale coverage. 5. DVT prophylaxis-he is on Eliquis. 6. Monitor blood pressure and adjust medications as needed. 7. Continue therapy. 8. Routine laboratory values. 9. Dr. Cerda is on-call starting 5:00 p.m. today. Job ID: [id number]
[2020-06-07] MEDS: Aripiprazole 10 MG TAB PO SCH (20:27)
[2020-06-07] MEDS: Atorvastatin Calcium 20 MG TAB PO SCH (20:28)
[2020-06-07] MEDS: Donepezil HCl 5 MG TAB PO SCH (20:29)
[2020-06-08] MEDS: Amlodipine 5 MG TAB PO SCH (08:08)
[2020-06-08] MEDS: Carvedilol 25 MG TAB PO SCH ×2 (08:08→17:54)
[2020-06-08] MEDS: metFORMIN 500 MG TAB PO SCH ×2 (08:08→17:54)
[2020-06-08] MEDS: Famotidine 20 MG TAB PO SCH ×2 (08:09→20:49)
[2020-06-08] MEDS: Furosemide 20 MG TAB PO SCH (08:09)
[2020-06-08] MEDS: Apixaban 5 MG TAB PO SCH ×2 (08:09→20:49)
[2020-06-08] MEDS: Pantoprazole 40 MG GRANULES PACKET PO SCH (08:09)
[2020-06-08] MEDS: Aspirin Chewable 81 MG TAB PO SCH (08:09)
[2020-06-08] MEDS: Losartan 25 MG TAB PO SCH (08:09)
[2020-06-08] MEDS: Folic Acid 1 MG TAB PO SCH (08:09)
[2020-06-08] MEDS: Atorvastatin Calcium 20 MG TAB PO SCH (20:49)
[2020-06-08] MEDS: Donepezil HCl 5 MG TAB PO SCH (20:50)
[2020-06-08] MEDS: Aripiprazole 10 MG TAB PO SCH (20:50)
[2020-06-09] MEDS: Pantoprazole 40 MG GRANULES PACKET PO SCH (08:38)
[2020-06-09] MEDS: Famotidine 20 MG TAB PO SCH ×2 (08:39→19:59)
[2020-06-09] MEDS: metFORMIN 500 MG TAB PO SCH ×2 (08:39→17:36)
[2020-06-09] MEDS: Aspirin Chewable 81 MG TAB PO SCH (08:39)
[2020-06-09] MEDS: Folic Acid 1 MG TAB PO SCH (08:39)
[2020-06-09] MEDS: Furosemide 20 MG TAB PO SCH (08:39)
[2020-06-09] MEDS: Apixaban 5 MG TAB PO SCH ×2 (08:39→19:59)
[2020-06-09] MEDS: Carvedilol 25 MG TAB PO SCH ×2 (08:39→17:36)
[2020-06-09] MEDS: Losartan 25 MG TAB PO SCH (08:39)
[2020-06-09] MEDS: Amlodipine 5 MG TAB PO SCH (08:39)
[2020-06-09] MEDS: Aripiprazole 10 MG TAB PO SCH (19:59)
[2020-06-09] MEDS: Donepezil HCl 5 MG TAB PO SCH (19:59)
[2020-06-09] MEDS: Atorvastatin Calcium 20 MG TAB PO SCH (19:59)
[2020-06-10] MEDS: Folic Acid 1 MG TAB PO SCH (09:18)
[2020-06-10] MEDS: Furosemide 20 MG TAB PO SCH (09:18)
[2020-06-10] MEDS: Losartan 25 MG TAB PO SCH (09:18)
[2020-06-10] MEDS: Aspirin Chewable 81 MG TAB PO SCH (09:19)
[2020-06-10] MEDS: Apixaban 5 MG TAB PO SCH ×2 (09:19→20:17)
[2020-06-10] MEDS: Pantoprazole 40 MG GRANULES PACKET PO SCH (09:19)
[2020-06-10] MEDS: Amlodipine 5 MG TAB PO SCH (09:19)
[2020-06-10] MEDS: metFORMIN 500 MG TAB PO SCH ×2 (09:19→17:55)
[2020-06-10] MEDS: Famotidine 20 MG TAB PO SCH ×2 (09:19→20:17)
[2020-06-10] MEDS: Carvedilol 25 MG TAB PO SCH ×2 (09:19→17:55)
[2020-06-10] MEDS: Aripiprazole 10 MG TAB PO SCH (20:16)
[2020-06-10] MEDS: Atorvastatin Calcium 20 MG TAB PO SCH (20:17)
[2020-06-10] MEDS: Donepezil HCl 5 MG TAB PO SCH (20:19)
[2020-06-11] MEDS: Carvedilol 25 MG TAB PO SCH ×2 (08:41→17:11)
[2020-06-11] MEDS: Famotidine 20 MG TAB PO SCH ×2 (08:41→20:40)
[2020-06-11] MEDS: Losartan 25 MG TAB PO SCH (08:41)
[2020-06-11] MEDS: Amlodipine 5 MG TAB PO SCH (08:41)
[2020-06-11] MEDS: Pantoprazole 40 MG GRANULES PACKET PO SCH (08:41)
[2020-06-11] MEDS: Apixaban 5 MG TAB PO SCH ×2 (08:41→20:41)
[2020-06-11] MEDS: Folic Acid 1 MG TAB PO SCH (08:42)
[2020-06-11] MEDS: Aspirin Chewable 81 MG TAB PO SCH (08:42)
[2020-06-11] MEDS: Furosemide 20 MG TAB PO SCH (08:42)
[2020-06-11] MEDS: metFORMIN 500 MG TAB PO SCH ×2 (08:42→17:11)
--- NOTE | 2020-06-11 11:11 | PRG ---
DATE OF SERVICE: 06/11/2020 SUBJECTIVE: The patient is doing well. No acute events overnight. Working well with therapy. OBJECTIVE: VITAL SIGNS: Temperature 98.1, pulse 60, respirations 20, O2 sats 96% on room air, blood pressure 125/78. GENERAL: Well-appearing, well-developed 75-year-old male. CARDIOVASCULAR: Regular rate and rhythm. No murmurs, gallops, or rubs. RESPIRATORY: Clear to auscultation bilaterally. ABDOMEN: Soft, nontender to palpation. Bowel sounds positive in all four quadrants. EXTREMITIES: No cyanosis or clubbing. IMPRESSION: 1. Diabetes type 2. 2. Hypertension. 3. Dyslipidemia. 4. COPD. 5. Heart failure with reduced ejection fraction. 6. Recovering from COVID infection. 7. Dysphagia. PLAN: 1. Continue current medications. 2. 1800 calorie heart healthy ADA diet. 3. Aspiration precautions. 4. DVT prophylaxis, on Eliquis. 5. Monitor blood pressure and adjust medications as needed. 6. Continue therapy. 7. Follow up routine laboratory values. Job ID: [id number]
--- NOTE | 2020-06-11 11:31 | PRG ---
DATE OF SERVICE: 06/09/2020 SUBJECTIVE: The patient is doing very well, recovering from his COVID infection. No acute complaints. No acute events overnight. OBJECTIVE: VITAL SIGNS: Temperature 97.9, pulse 60, respirations 20, O2 sats 97% on room air, blood pressure 106/60. CARDIOVASCULAR: Regular rate and rhythm. No murmurs, gallops, rubs. RESPIRATORY: Clear to auscultation bilaterally. No wheezes or rhonchi. GI: Soft, nontender to palpation. Bowel sounds positive in all four quadrants. EXTREMITIES: No cyanosis or clubbing. IMPRESSION: 1. Diabetes type 2. 2. Hypertension. 3. Dyslipidemia. 4. COPD. 5. Heart failure, reduced ejection fraction. 6. Recovering from COVID-19 infection. 7. Dysphagia. PLAN: 1. Continue current medications. 2. Aspiration precautions. 3. Accu-Cheks with sliding scale coverage. 4. DVT prophylaxis, on Eliquis. 5. Monitor blood pressure and adjust medications as needed. 6. Continue PT and OT Services. Job ID: [id number]
[2020-06-11] MEDS: Potassium Chloride 20 MEQ TAB PO SCH (12:22)
[2020-06-11] MEDS: Aripiprazole 10 MG TAB PO SCH (20:41)
[2020-06-11] MEDS: Donepezil HCl 5 MG TAB PO SCH (20:41)
[2020-06-11] MEDS: Atorvastatin Calcium 20 MG TAB PO SCH (20:41)
[2020-06-12] MEDS: Amlodipine 5 MG TAB PO SCH (08:40)
[2020-06-12] MEDS: metFORMIN 500 MG TAB PO SCH ×3 (08:40→17:42)
[2020-06-12] MEDS: Carvedilol 25 MG TAB PO SCH ×2 (08:40→17:42)
[2020-06-12] MEDS: Aspirin Chewable 81 MG TAB PO SCH (08:42)
[2020-06-12] MEDS: Folic Acid 1 MG TAB PO SCH (08:42)
[2020-06-12] MEDS: Furosemide 20 MG TAB PO SCH (08:42)
[2020-06-12] MEDS: Famotidine 20 MG TAB PO SCH ×2 (08:42→20:45)
[2020-06-12] MEDS: Apixaban 5 MG TAB PO SCH ×2 (08:42→20:44)
[2020-06-12] MEDS: Losartan 25 MG TAB PO SCH (08:42)
[2020-06-12] MEDS: Pantoprazole 40 MG GRANULES PACKET PO SCH (08:43)
[2020-06-12] MEDS: Potassium Chloride 20 MEQ TAB PO SCH (11:55)
[2020-06-12 15:02] VITALS: BMI 25.8
[2020-06-12] MEDS: Donepezil HCl 5 MG TAB PO SCH (20:44)
[2020-06-12] MEDS: Aripiprazole 10 MG TAB PO SCH (20:44)
[2020-06-12] MEDS: Atorvastatin Calcium 20 MG TAB PO SCH (20:45)
[2020-06-13] MEDS: metFORMIN 500 MG TAB PO SCH ×2 (07:53→17:40)
[2020-06-13] MEDS: Carvedilol 25 MG TAB PO SCH ×2 (07:53→17:40)
[2020-06-13] MEDS: Amlodipine 5 MG TAB PO SCH (07:53)
[2020-06-13] MEDS: Furosemide 20 MG TAB PO SCH (07:54)
[2020-06-13] MEDS: Losartan 25 MG TAB PO SCH (07:54)
[2020-06-13] MEDS: Apixaban 5 MG TAB PO SCH ×2 (07:54→21:15)
[2020-06-13] MEDS: Aspirin Chewable 81 MG TAB PO SCH (07:54)
[2020-06-13] MEDS: Pantoprazole 40 MG GRANULES PACKET PO SCH (07:54)
[2020-06-13] MEDS: Famotidine 20 MG TAB PO SCH ×2 (07:54→21:15)
[2020-06-13] MEDS: Folic Acid 1 MG TAB PO SCH (07:54)
[2020-06-13] MEDS: Potassium Chloride 20 MEQ TAB PO SCH (11:28)
[2020-06-13] MEDS: Aripiprazole 10 MG TAB PO SCH (21:14)
[2020-06-13] MEDS: Donepezil HCl 5 MG TAB PO SCH (21:15)
[2020-06-13] MEDS: Atorvastatin Calcium 20 MG TAB PO SCH (21:16)
--- NOTE | 2020-06-14 06:30 | PRG ---
DATE OF SERVICE: 06/13/[address] Jose D Cerda. SUBJECTIVE: The patient feels well. No shortness of breath or chest pain. He has increasing strength and is recovering from his recent COVID infection. Apparently, the family is preparing to take him home in the next several days. Therapy is discussing and feels that he is stable. OBJECTIVE: VITAL SIGNS: temperature is 97.1, pulse 68, respirations 20, O2 sats 97% on room air, blood pressure 115/65. LUNGS: Clear. CARDIAC: Regular rhythm. ABDOMEN: Soft and nontender. NEUROLOGIC: Diffuse, but improving weakness. No focal findings. ASSESSMENT: 1. Resolving COVID infection. 2. Stable systolic congestive heart failure. 3. Type 2 diabetes, controlled to goal. 4. Hypertension, controlled to goal. PLAN: 1. Continue PT/OT. 2. Plan for discharge home in several days. 3. Continue stress ulcer and DVT prophylaxis. Job ID: [id number]
[2020-06-14] MEDS: Amlodipine 5 MG TAB PO SCH (08:42)
[2020-06-14] MEDS: Pantoprazole 40 MG GRANULES PACKET PO SCH (08:42)
[2020-06-14] MEDS: Famotidine 20 MG TAB PO SCH ×2 (08:42→21:24)
[2020-06-14] MEDS: metFORMIN 500 MG TAB PO SCH ×2 (08:43→16:07)
[2020-06-14] MEDS: Losartan 25 MG TAB PO SCH (08:43)
[2020-06-14] MEDS: Aspirin Chewable 81 MG TAB PO SCH (08:43)
[2020-06-14] MEDS: Carvedilol 25 MG TAB PO SCH ×2 (08:43→16:07)
[2020-06-14] MEDS: Furosemide 20 MG TAB PO SCH (08:43)
[2020-06-14] MEDS: Folic Acid 1 MG TAB PO SCH (08:43)
[2020-06-14] MEDS: Apixaban 5 MG TAB PO SCH ×2 (08:43→21:24)
[2020-06-14] MEDS: HumaLOG 300 UNITS/3 ML VIAL SC PRN (12:08)
[2020-06-14] MEDS: Potassium Chloride 20 MEQ TAB PO SCH (12:08)
--- NOTE | 2020-06-14 21:08 | PRG ---
DATE OF SERVICE: 06/14/2020 SUBJECTIVE: The patient is lying in the bed, resting. He is eating well and cooperative with therapy today. Apparently, he is going home with family in 2 days. He understands he needs standby assistance at all times. OBJECTIVE: VITAL SIGNS: Shows temperature is 97.5, pulse 60, respirations 20, O2 saturations 95% on room air, blood pressure 108/59. ABDOMEN: Soft, nontender. EXTREMITIES: Displayed no edema, clubbing, or cyanosis. NEUROLOGICAL: Intact. ASSESSMENT: 1. Resolving COVID infection. 2. Stable systolic heart failure. 3. . 4. Stable hypertension. PLAN: Repeat CBC, comprehensive metabolic in a.m. Continue PT, OT. Plan to discharge this week. Job ID: [id number]
[2020-06-14] MEDS: Atorvastatin Calcium 20 MG TAB PO SCH (21:24)
[2020-06-14] MEDS: Donepezil HCl 5 MG TAB PO SCH (21:24)
[2020-06-14] MEDS: Aripiprazole 10 MG TAB PO SCH (21:25)
[2020-06-15] MEDS: Famotidine 20 MG TAB PO SCH ×2 (09:29→21:43)
[2020-06-15] MEDS: Folic Acid 1 MG TAB PO SCH (09:29)
[2020-06-15] MEDS: Amlodipine 5 MG TAB PO SCH (09:29)
[2020-06-15] MEDS: metFORMIN 500 MG TAB PO SCH ×2 (09:30→17:12)
[2020-06-15] MEDS: Carvedilol 25 MG TAB PO SCH ×2 (09:30→17:12)
[2020-06-15] MEDS: Aspirin Chewable 81 MG TAB PO SCH (09:30)
[2020-06-15] MEDS: Furosemide 20 MG TAB PO SCH (09:30)
[2020-06-15] MEDS: Apixaban 5 MG TAB PO SCH ×2 (09:30→21:44)
[2020-06-15] MEDS: Losartan 25 MG TAB PO SCH (09:30)
[2020-06-15] MEDS: Pantoprazole 40 MG GRANULES PACKET PO SCH (09:33)
[2020-06-15] MEDS: HumaLOG 300 UNITS/3 ML VIAL SC PRN ×2 (11:33→17:13)
[2020-06-15] MEDS: Potassium Chloride 20 MEQ TAB PO SCH (11:34)
--- NOTE | 2020-06-15 19:31 | PRG ---
DATE OF SERVICE: 06/15/2020 SUBJECTIVE: The patient lying in bed, resting. No complaints. Eating well and has finished his therapy. Family is planning on taking him home day after tomorrow. OBJECTIVE: VITAL SIGNS: Show temperature 97.6, pulse 68, respirations 18, O2 sats 96% on room air, blood pressure is 109/68. LUNGS: Clear. CARDIAC: Examination shows regular rhythm. ABDOMEN: Soft and nontender. Accu-Cheks range from 144-166. ASSESSMENT: 1. Type 2 diabetes, controlled to goal. 2. Deconditioning, stable. 3. Resolving COVID infection. 4. Stable systolic heart failure. 5. Stable hypertension. PLAN: Discharge to family in the next two days. Job ID: [id number]
[2020-06-15] MEDS: Donepezil HCl 5 MG TAB PO SCH (21:43)
[2020-06-15] MEDS: Atorvastatin Calcium 20 MG TAB PO SCH (21:43)
[2020-06-15] MEDS: Aripiprazole 10 MG TAB PO SCH (21:44)
[2020-06-16] MEDS: Amlodipine 5 MG TAB PO SCH (08:33)
[2020-06-16] MEDS: Folic Acid 1 MG TAB PO SCH (08:34)
[2020-06-16] MEDS: Losartan 25 MG TAB PO SCH (08:34)
[2020-06-16] MEDS: Famotidine 20 MG TAB PO SCH ×2 (08:34→20:50)
[2020-06-16] MEDS: Aspirin Chewable 81 MG TAB PO SCH (08:34)
[2020-06-16] MEDS: Apixaban 5 MG TAB PO SCH ×2 (08:34→20:49)
[2020-06-16] MEDS: Carvedilol 25 MG TAB PO SCH ×2 (08:34→16:49)
[2020-06-16] MEDS: Furosemide 20 MG TAB PO SCH (08:34)
[2020-06-16] MEDS: metFORMIN 500 MG TAB PO SCH ×2 (08:35→16:46)
[2020-06-16] MEDS: Pantoprazole 40 MG GRANULES PACKET PO SCH (08:35)
[2020-06-16] MEDS: Potassium Chloride 20 MEQ TAB PO SCH (12:03)
[2020-06-16] MEDS: Aripiprazole 10 MG TAB PO SCH (20:49)
[2020-06-16] MEDS: Donepezil HCl 5 MG TAB PO SCH (20:49)
[2020-06-16] MEDS: Atorvastatin Calcium 20 MG TAB PO SCH (20:49)
[2020-06-17 08:13] VITALS: BP 124/82; TEMP 96.6
[2020-06-17] MEDS: Carvedilol 25 MG TAB PO SCH (08:25)
[2020-06-17] MEDS: metFORMIN 500 MG TAB PO SCH (08:25)
[2020-06-17] MEDS: Aspirin Chewable 81 MG TAB PO SCH (08:26)
[2020-06-17] MEDS: Folic Acid 1 MG TAB PO SCH (08:26)
[2020-06-17] MEDS: Famotidine 20 MG TAB PO SCH (08:26)
[2020-06-17] MEDS: Furosemide 20 MG TAB PO SCH (08:26)
[2020-06-17] MEDS: Apixaban 5 MG TAB PO SCH (08:26)
[2020-06-17] MEDS: Amlodipine 5 MG TAB PO SCH (08:26)
[2020-06-17] MEDS: Pantoprazole 40 MG GRANULES PACKET PO SCH (08:27)
[2020-06-17] MEDS: Losartan 25 MG TAB PO SCH (08:27)
--- NOTE | 2020-06-17 09:04 | PRG ---
DATE OF SERVICE: 06/16/2020 SUBJECTIVE: The patient is lying in bed, resting, no complaints. Nurses have no concerns. The patient is being discharged to family tomorrow. OBJECTIVE: Temperature is 96.5, pulse 64, respirations 18, O2 saturation 100% on room air, blood pressure 107/55. LUNGS: Clear. CARDIAC: Shows regular rhythm. ABDOMEN: Soft and nontender. ASSESSMENT: 1. Resolving COVID infection. 2. Improved deconditioning. 3. Stable type 2 diabetes, controlled to goal. 4. Stable systolic hypertension. 5. Stable systolic heart failure. PLAN: Discharge to family tomorrow. Job ID: [id number]
[2020-06-17] MEDS: Potassium Chloride 20 MEQ TAB PO SCH (11:24)
== END 2020-06-17 13:30 | disposition home health service (06) | DRG 177 ==
LOC: NAV ACUTE 15:45
PROVIDERS: ADMIT Family Medicine; ATTEND Family Medicine
PROC: 8E0ZXY6 Isolation (ICD-10-PCS; principal; 2020-05-31)
DX: U07.1 COVID-19 (principal); J12.82 Pneumonia due to coronavirus disease 2019; I50.22 Chronic systolic (congestive) heart failure; J44.0 Chronic obstructive pulmonary disease with (acute) lower respiratory infection; E11.9 Type 2 diabetes mellitus without complications; E78.5 Hyperlipidemia, unspecified; F03.90 Unspecified dementia, unspecified severity, without behavioral disturbance, psychotic disturbance, mood disturbance, and anxiety; F20.9 Schizophrenia, unspecified; R13.10 Dysphagia, unspecified; I48.91 Unspecified atrial fibrillation; I11.0 Hypertensive heart disease with heart failure; Z87.891 Personal history of nicotine dependence; Z95.0 Presence of cardiac pacemaker
CPT/HCPCS: 36415; 36416; 80048; 80053; 82565; 84100; 85014; 85018; 85025; 85049

== ENCOUNTER 2020-11-24 14:55 | Emergency (ER) | payer MEDICARE ==
[2020-11-24 15:38] LABS: #Basophils 0.1 thou/uL (0.0-0.2); #Lymphocytes 1.2 thou/uL (1.20-3.40); #Monocytes 0.9 thou/uL (0.11-0.59); #Neutrophils 8.2 thou/uL (1.40-6.50); %Basophils 0.7 % (0.0-1.0); %Eosinophils 0.3 % (0.0-10.0); %Lymphocytes 11.5 % (21.0-51.0); %Monocytes 8.5 % (0.0-10.0); %Neutrophils 78.9 % (42.0-75.0); Hemoglobin 12.6 g/dL (14.0-18.0); Mean Corpuscular HGB CONC 29.7 g/dL (32.0-36.0); Mean Corpuscular Hemoglobin 28.6 pg (27.0-31.0); Mean Corpuscular Volume 96.2 fL (78.0-98.0); Mean Platelet Volume 8.3 fL (7.4-10.4); Platelet Count 274 thou/uL (130-400); RBC Distribution Width 15.4 % (11.5-14.5); White Blood Cell (WBC) Count 10.4 thou/uL (4.8-10.8)
[2020-11-24 15:42] LABS: Bilirubin Small (Negative); Blood, Urine Trace (Negative); Clarity Clear (Clear); Glucose, Urine (Dipstick) 250 mg/dL (Negative); Ketone, Urine Trace mg/dL (Negative); Leukocyte Negative (Negative); Nitrite Negative (Negative); Protein, Urine (Dipstick) 100 mg/dL (Neg-Trace); pH, Urine 5.5 (5.0-9.0)
[2020-11-24] MEDS ORDERED: Sodium Chloride 0.9% 1,000 ML ONE (15:43)
[2020-11-24 15:48] LABS: ALT (SGPT) 8 U/L (8-55); AST (SGOT) 11 U/L (5-34); Albumin 3.9 g/dL (3.4-4.8); Alkaline Phosphatase 88 U/L (40-110); Anion Gap 18 mmol/L (10-20); BUN (Urea Nitrogen) 15 mg/dL (8.4-25.7); Bilirubin, Total 0.7 mg/dL (0.2-1.2); Calc. Creatinine Clearance 0 mL/min (70-130); Calcium 8.3 mg/dL (7.8-10.44); Carbon Dioxide 20 mmol/L (23-31); Chloride 104 mmol/L (98-107); Globulin 3.9 g/dL (2.4-3.5); Glucose 215 mg/dL (83-110); Potassium 3.7 mmol/L (3.5-5.1); Protein, Total 7.8 g/dL (5.8-8.1); Sodium 138 mmol/L (136-145)
[2020-11-24 15:51] LABS: Bacteria/HPF Rare-Few HPF (None Seen); RBC/HPF 0-3 HPF (0-3); WBC/HPF None Seen HPF (0-3)
[2020-11-24 16:32] LABS: Platelet Morphology Comment Appears Adequate; RBC Morphology Normal
[2020-11-24 18:37] LABS: Lactic Acid 2.5 mmol/L (0.5-2.2)
== END 2020-11-24 19:40 | disposition short-term general hospital (02) ==
LOC: NAV ERS 14:55
DX: I48.91 Unspecified atrial fibrillation (principal); E86.0 Dehydration; R74.02 Elevation of levels of lactic acid dehydrogenase [LDH]; I25.10 Atherosclerotic heart disease of native coronary artery without angina pectoris; E11.9 Type 2 diabetes mellitus without complications; E78.5 Hyperlipidemia, unspecified; I10 Essential (primary) hypertension; J44.9 Chronic obstructive pulmonary disease, unspecified; Z79.84 Long term (current) use of oral hypoglycemic drugs; Z79.01 Long term (current) use of anticoagulants; Z79.899 Other long term (current) drug therapy; Z79.82 Long term (current) use of aspirin
CPT/HCPCS: 36415; 51701; 70450; 71045; 80053; 81003; 81015; 83605; 84484; 85025; 93005; 96374; J7050

== ENCOUNTER 2020-12-05 12:52 | Inpatient (IN) | payer MEDICARE ==
[2020-12-05] MEDS ORDERED: HumaLOG 300 UNITS/3 ML VIAL SC PRN (15:30)
[2020-12-05] MEDS ORDERED: Dextrose 50% Abboject 50 ML SYRINGE IVP PRN (15:30)
[2020-12-05] MEDS ORDERED: Dextrose 5% in Water 1,000 ML IV PRN (15:30)
[2020-12-05] MEDS ORDERED: Acetaminophen 325 MG TAB PO PRN (15:34)
[2020-12-05] MEDS: metFORMIN 500 MG TAB PO SCH (17:25)
[2020-12-05] MEDS: Carvedilol 6.25 MG TAB PO SCH (17:25)
[2020-12-05] MEDS ORDERED: Dextrose 50% Abboject 50 ML SYRINGE SLOW IVP PRN (20:50)
[2020-12-05] MEDS ORDERED: Loperamide HCl 2 MG CAP PO PRN ×2 (20:50)
[2020-12-05] MEDS ORDERED: Cepastat Lozenges 1 LOZ PO PRN (20:50)
[2020-12-05] MEDS ORDERED: Senokot S 8.6-50 MG TAB PO PRN (20:50)
[2020-12-05] MEDS ORDERED: Bisacodyl 10 MG SUPP PR PRN (20:50)
[2020-12-05] MEDS: Magnesium Chloride 64 MG TAB PO SCH (21:30)
[2020-12-05] MEDS: Sulfameth/Trimethoprim DS 800-160mg TAB PO SCH (21:31)
[2020-12-05] MEDS: Apixaban 5 MG TAB PO SCH (21:31)
[2020-12-05] MEDS: Donepezil HCl 5 MG TAB PO SCH (21:31)
[2020-12-05] MEDS: clonazePAM 0.5 MG TAB PO SCH (21:31)
[2020-12-05] MEDS: Atorvastatin Calcium 20 MG TAB PO SCH (21:31)
[2020-12-05] MEDS: Ciprofloxacin 500 MG TAB PO SCH (21:31)
[2020-12-05] MEDS: OLANZapine 5 MG TAB PO SCH (21:32)
[2020-12-05] MEDS: Cholecalciferol 1,000 UNITS (25 MCG) TAB PO SCH (21:32)
[2020-12-05] MEDS: Famotidine 20 MG TAB PO SCH (21:34)
[2020-12-06 05:24] LABS: #Basophils 0.1 thou/uL (0.0-0.2); #Eosinphils 0.1 thou/uL (0.0-0.7); #Monocytes 0.5 thou/uL (0.11-0.59); #Neutrophils 4.8 thou/uL (1.40-6.50); %Basophils 0.7 % (0.0-1.0); %Eosinophils 0.8 % (0.0-10.0); %Lymphocytes 26.5 % (21.0-51.0); %Monocytes 6.7 % (0.0-10.0); %Neutrophils 65.2 % (42.0-75.0); Hemoglobin 12.1 g/dL (14.0-18.0); Mean Corpuscular HGB CONC 30.6 g/dL (32.0-36.0); Mean Corpuscular Hemoglobin 29.4 pg (27.0-31.0); Mean Corpuscular Volume 96.1 fL (78.0-98.0); Mean Platelet Volume 7.6 fL (7.4-10.4); Platelet Count 263 thou/uL (130-400); Red Blood Cell (RBC) Count 4.11 mill/uL (4.70-6.10); White Blood Cell (WBC) Count 7.4 thou/uL (4.8-10.8)
[2020-12-06] MEDS: Ciprofloxacin 500 MG TAB PO SCH ×2 (05:24→21:21)
[2020-12-06 05:39] LABS: Anion Gap 14 mmol/L (10-20); BUN (Urea Nitrogen) 8 mg/dL (8.4-25.7); Calc. Creatinine Clearance 116 mL/min (70-130); Carbon Dioxide 22 mmol/L (23-31); Chloride 108 mmol/L (98-107); Glucose 80 mg/dL (83-110); Potassium 3.8 mmol/L (3.5-5.1); Sodium 140 mmol/L (136-145)
[2020-12-06] MEDS: Aspirin 81 mg Enteric Coated Tablet PO SCH (08:47)
[2020-12-06] MEDS: Famotidine 20 MG TAB PO SCH ×2 (08:47→21:21)
[2020-12-06] MEDS: Furosemide 20 MG TAB PO SCH (08:47)
[2020-12-06] MEDS: Carvedilol 6.25 MG TAB PO SCH ×2 (08:48→16:34)
[2020-12-06] MEDS: Apixaban 5 MG TAB PO SCH ×2 (08:48→21:20)
[2020-12-06] MEDS: Sulfameth/Trimethoprim DS 800-160mg TAB PO SCH ×2 (08:48→21:20)
[2020-12-06] MEDS: clonazePAM 0.5 MG TAB PO SCH ×2 (08:48→21:21)
[2020-12-06] MEDS: metFORMIN 500 MG TAB PO SCH ×2 (08:48→16:34)
[2020-12-06] MEDS: Losartan Potassium 50 MG TAB PO SCH (08:48)
[2020-12-06] MEDS: Magnesium Chloride 64 MG TAB PO SCH ×2 (08:49→21:20)
[2020-12-06] MEDS: Cholecalciferol 1,000 UNITS (25 MCG) TAB PO SCH (21:20)
[2020-12-06] MEDS: Donepezil HCl 5 MG TAB PO SCH (21:21)
[2020-12-06] MEDS: OLANZapine 5 MG TAB PO SCH (21:21)
[2020-12-06] MEDS: Atorvastatin Calcium 20 MG TAB PO SCH (21:21)
[2020-12-07] MEDS: Ciprofloxacin 500 MG TAB PO SCH ×2 (05:31→19:55)
[2020-12-07] MEDS: Apixaban 5 MG TAB PO SCH ×2 (08:24→20:01)
[2020-12-07] MEDS: metFORMIN 500 MG TAB PO SCH ×2 (08:24→17:54)
[2020-12-07] MEDS: Magnesium Chloride 64 MG TAB PO SCH ×2 (08:24→19:59)
[2020-12-07] MEDS: Carvedilol 6.25 MG TAB PO SCH ×2 (08:25→17:53)
[2020-12-07] MEDS: Losartan Potassium 50 MG TAB PO SCH (08:25)
[2020-12-07] MEDS: Sulfameth/Trimethoprim DS 800-160mg TAB PO SCH ×2 (08:25→20:01)
[2020-12-07] MEDS: Aspirin 81 mg Enteric Coated Tablet PO SCH (08:25)
[2020-12-07] MEDS: Famotidine 20 MG TAB PO SCH ×2 (08:26→20:01)
[2020-12-07] MEDS: Furosemide 20 MG TAB PO SCH (08:26)
[2020-12-07] MEDS: clonazePAM 0.5 MG TAB PO SCH ×2 (10:16→19:59)
[2020-12-07] MEDS: Donepezil HCl 5 MG TAB PO SCH (20:01)
[2020-12-07] MEDS: Cholecalciferol 1,000 UNITS (25 MCG) TAB PO SCH (20:01)
[2020-12-07] MEDS: Atorvastatin Calcium 20 MG TAB PO SCH (20:01)
[2020-12-07] MEDS: OLANZapine 5 MG TAB PO SCH (20:01)
[2020-12-08] MEDS: Ciprofloxacin 500 MG TAB PO SCH ×2 (05:20→20:24)
[2020-12-08 06:10] LABS: Hemoglobin 13.8 g/dL (14.0-18.0); Platelet Count 251 thou/uL (130-400)
[2020-12-08 06:18] LABS: Calc. Creatinine Clearance 105 mL/min (70-130)
[2020-12-08] MEDS: Magnesium Chloride 64 MG TAB PO SCH ×2 (08:16→20:22)
[2020-12-08] MEDS: clonazePAM 0.5 MG TAB PO SCH ×2 (08:16→20:22)
[2020-12-08] MEDS: Aspirin 81 mg Enteric Coated Tablet PO SCH (08:17)
[2020-12-08] MEDS: metFORMIN 500 MG TAB PO SCH ×2 (08:17→17:21)
[2020-12-08] MEDS: Apixaban 5 MG TAB PO SCH ×2 (08:17→20:24)
[2020-12-08] MEDS: Carvedilol 6.25 MG TAB PO SCH ×2 (08:17→17:20)
[2020-12-08] MEDS: Furosemide 20 MG TAB PO SCH (08:18)
[2020-12-08] MEDS: Famotidine 20 MG TAB PO SCH ×2 (08:18→20:24)
[2020-12-08] MEDS: Losartan Potassium 50 MG TAB PO SCH (08:18)
[2020-12-08] MEDS: Sulfameth/Trimethoprim DS 800-160mg TAB PO SCH ×2 (08:18→20:24)
[2020-12-08] MEDS: OLANZapine 5 MG TAB PO SCH (20:24)
[2020-12-08] MEDS: Atorvastatin Calcium 20 MG TAB PO SCH (20:24)
[2020-12-08] MEDS: Cholecalciferol 1,000 UNITS (25 MCG) TAB PO SCH (20:24)
[2020-12-08] MEDS: Donepezil HCl 5 MG TAB PO SCH (20:24)
[2020-12-09] MEDS: Ciprofloxacin 500 MG TAB PO SCH ×2 (05:34→20:23)
[2020-12-09] MEDS: Furosemide 20 MG TAB PO SCH (08:28)
[2020-12-09] MEDS: Aspirin 81 mg Enteric Coated Tablet PO SCH (08:29)
[2020-12-09] MEDS: Magnesium Chloride 64 MG TAB PO SCH ×2 (08:29→20:23)
[2020-12-09] MEDS: Sulfameth/Trimethoprim DS 800-160mg TAB PO SCH ×2 (08:29→20:23)
[2020-12-09] MEDS: Carvedilol 6.25 MG TAB PO SCH ×2 (08:29→17:32)
[2020-12-09] MEDS: Famotidine 20 MG TAB PO SCH ×2 (08:29→20:23)
[2020-12-09] MEDS: Losartan Potassium 50 MG TAB PO SCH (08:30)
[2020-12-09] MEDS: Apixaban 5 MG TAB PO SCH ×2 (08:30→20:23)
[2020-12-09] MEDS: metFORMIN 500 MG TAB PO SCH ×2 (08:30→17:33)
[2020-12-09] MEDS: clonazePAM 0.5 MG TAB PO SCH ×2 (08:32→20:22)
[2020-12-09] MEDS: Bisacodyl 5 MG TAB PO PRN (14:18)
[2020-12-09] MEDS: Cholecalciferol 1,000 UNITS (25 MCG) TAB PO SCH (20:23)
[2020-12-09] MEDS: OLANZapine 5 MG TAB PO SCH (20:23)
[2020-12-09] MEDS: Donepezil HCl 5 MG TAB PO SCH (20:23)
[2020-12-09] MEDS: Atorvastatin Calcium 20 MG TAB PO SCH (20:23)
[2020-12-10] MEDS: Ciprofloxacin 500 MG TAB PO SCH ×2 (05:13→20:32)
[2020-12-10] MEDS: Carvedilol 6.25 MG TAB PO SCH ×2 (08:59→17:48)
[2020-12-10] MEDS: metFORMIN 500 MG TAB PO SCH ×2 (08:59→17:48)
[2020-12-10] MEDS: Apixaban 5 MG TAB PO SCH ×2 (09:01→20:32)
[2020-12-10] MEDS: Furosemide 20 MG TAB PO SCH (09:01)
[2020-12-10] MEDS: Famotidine 20 MG TAB PO SCH ×2 (09:02→20:32)
[2020-12-10] MEDS: Losartan Potassium 50 MG TAB PO SCH (09:02)
[2020-12-10] MEDS: clonazePAM 0.5 MG TAB PO SCH ×2 (09:02→20:31)
[2020-12-10] MEDS: Aspirin 81 mg Enteric Coated Tablet PO SCH (09:03)
[2020-12-10] MEDS: Magnesium Chloride 64 MG TAB PO SCH ×2 (09:04→20:32)
[2020-12-10] MEDS: Sulfameth/Trimethoprim DS 800-160mg TAB PO SCH ×2 (09:06→20:32)
[2020-12-10] MEDS: Bisacodyl 5 MG TAB PO PRN (09:07)
[2020-12-10] MEDS: Donepezil HCl 5 MG TAB PO SCH (20:32)
[2020-12-10] MEDS: Atorvastatin Calcium 20 MG TAB PO SCH (20:32)
[2020-12-10] MEDS: Cholecalciferol 1,000 UNITS (25 MCG) TAB PO SCH (20:32)
[2020-12-10] MEDS: OLANZapine 5 MG TAB PO SCH (20:32)
[2020-12-11] MEDS: Ciprofloxacin 500 MG TAB PO SCH ×2 (05:10→20:14)
[2020-12-11] MEDS: Apixaban 5 MG TAB PO SCH ×2 (08:56→20:15)
[2020-12-11] MEDS: Magnesium Chloride 64 MG TAB PO SCH ×2 (08:56→20:14)
[2020-12-11] MEDS: Aspirin 81 mg Enteric Coated Tablet PO SCH (08:56)
[2020-12-11] MEDS: metFORMIN 500 MG TAB PO SCH ×2 (08:56→17:33)
[2020-12-11] MEDS: Carvedilol 6.25 MG TAB PO SCH ×2 (08:56→17:33)
[2020-12-11] MEDS: Sulfameth/Trimethoprim DS 800-160mg TAB PO SCH ×2 (08:56→20:14)
[2020-12-11] MEDS: clonazePAM 0.5 MG TAB PO SCH ×2 (08:57→20:14)
[2020-12-11] MEDS: Losartan Potassium 50 MG TAB PO SCH (08:57)
[2020-12-11] MEDS: Famotidine 20 MG TAB PO SCH ×2 (08:57→20:15)
[2020-12-11] MEDS: Furosemide 20 MG TAB PO SCH (08:57)
[2020-12-11] MEDS: OLANZapine 5 MG TAB PO SCH (20:14)
[2020-12-11] MEDS: Atorvastatin Calcium 20 MG TAB PO SCH (20:14)
[2020-12-11] MEDS: Donepezil HCl 5 MG TAB PO SCH (20:15)
[2020-12-11] MEDS: Cholecalciferol 1,000 UNITS (25 MCG) TAB PO SCH (20:15)
[2020-12-12] MEDS: Ciprofloxacin 500 MG TAB PO SCH ×2 (05:05→21:13)
[2020-12-12] MEDS: clonazePAM 0.5 MG TAB PO SCH ×2 (09:11→21:15)
[2020-12-12] MEDS: Apixaban 5 MG TAB PO SCH ×2 (09:12→21:13)
[2020-12-12] MEDS: Sulfameth/Trimethoprim DS 800-160mg TAB PO SCH ×2 (09:12→21:13)
[2020-12-12] MEDS: Aspirin 81 mg Enteric Coated Tablet PO SCH (09:12)
[2020-12-12] MEDS: metFORMIN 500 MG TAB PO SCH ×2 (09:12→16:57)
[2020-12-12] MEDS: Losartan Potassium 50 MG TAB PO SCH (09:12)
[2020-12-12] MEDS: Furosemide 20 MG TAB PO SCH (09:12)
[2020-12-12] MEDS: Famotidine 20 MG TAB PO SCH ×2 (09:12→21:14)
[2020-12-12] MEDS: Carvedilol 6.25 MG TAB PO SCH ×2 (09:12→16:56)
[2020-12-12] MEDS: Magnesium Chloride 64 MG TAB PO SCH ×2 (09:13→21:13)
[2020-12-12 12:11] VITALS: BMI 26.9
[2020-12-12] MEDS: Donepezil HCl 5 MG TAB PO SCH (21:13)
[2020-12-12] MEDS: OLANZapine 5 MG TAB PO SCH (21:13)
[2020-12-12] MEDS: Atorvastatin Calcium 20 MG TAB PO SCH (21:13)
[2020-12-12] MEDS: Cholecalciferol 1,000 UNITS (25 MCG) TAB PO SCH (21:14)
[2020-12-13] MEDS: Ciprofloxacin 500 MG TAB PO SCH ×2 (05:24→20:28)
[2020-12-13] MEDS: metFORMIN 500 MG TAB PO SCH ×2 (08:23→17:35)
[2020-12-13] MEDS: Famotidine 20 MG TAB PO SCH ×2 (08:23→20:28)
[2020-12-13] MEDS: Apixaban 5 MG TAB PO SCH ×2 (08:23→20:28)
[2020-12-13] MEDS: Aspirin 81 mg Enteric Coated Tablet PO SCH (08:23)
[2020-12-13] MEDS: Magnesium Chloride 64 MG TAB PO SCH ×2 (08:23→20:27)
[2020-12-13] MEDS: clonazePAM 0.5 MG TAB PO SCH ×2 (08:24→20:28)
[2020-12-13] MEDS: Sulfameth/Trimethoprim DS 800-160mg TAB PO SCH ×2 (08:25→20:28)
[2020-12-13] MEDS: Carvedilol 6.25 MG TAB PO SCH ×2 (08:26→17:35)
[2020-12-13] MEDS: Losartan Potassium 50 MG TAB PO SCH (08:26)
[2020-12-13] MEDS: Furosemide 20 MG TAB PO SCH (08:26)
[2020-12-13] MEDS: Cholecalciferol 1,000 UNITS (25 MCG) TAB PO SCH (20:28)
[2020-12-13] MEDS: Donepezil HCl 5 MG TAB PO SCH (20:28)
[2020-12-13] MEDS: OLANZapine 5 MG TAB PO SCH (20:28)
[2020-12-13] MEDS: Atorvastatin Calcium 20 MG TAB PO SCH (20:28)
[2020-12-14] MEDS: Ciprofloxacin 500 MG TAB PO SCH (05:43)
[2020-12-14 08:37] VITALS: TEMP 98.1
[2020-12-14] MEDS: Losartan Potassium 50 MG TAB PO SCH (08:38)
[2020-12-14] MEDS: Apixaban 5 MG TAB PO SCH (08:38)
[2020-12-14] MEDS: Sulfameth/Trimethoprim DS 800-160mg TAB PO SCH (08:38)
[2020-12-14] MEDS: Famotidine 20 MG TAB PO SCH (08:38)
[2020-12-14] MEDS: clonazePAM 0.5 MG TAB PO SCH (08:38)
[2020-12-14] MEDS: Aspirin 81 mg Enteric Coated Tablet PO SCH (08:38)
[2020-12-14] MEDS: Furosemide 20 MG TAB PO SCH (08:38)
[2020-12-14] MEDS: metFORMIN 500 MG TAB PO SCH ×2 (08:38→16:29)
[2020-12-14] MEDS: Magnesium Chloride 64 MG TAB PO SCH (08:39)
[2020-12-14] MEDS: Carvedilol 6.25 MG TAB PO SCH ×2 (08:39→16:29)
[2020-12-14 08:49] VITALS: BP 107/76
== END 2020-12-14 19:16 | disposition home health service (06) | DRG 948 ==
LOC: NAV ACUTE 12:58
PROVIDERS: ADMIT Family Medicine; ATTEND Family Medicine
DX: R53.81 Other malaise (principal); I50.22 Chronic systolic (congestive) heart failure; I42.8 Other cardiomyopathies; E78.5 Hyperlipidemia, unspecified; F03.90 Unspecified dementia, unspecified severity, without behavioral disturbance, psychotic disturbance, mood disturbance, and anxiety; E11.51 Type 2 diabetes mellitus with diabetic peripheral angiopathy without gangrene; F17.200 Nicotine dependence, unspecified, uncomplicated; F20.9 Schizophrenia, unspecified; I48.91 Unspecified atrial fibrillation; I08.1 Rheumatic disorders of both mitral and tricuspid valves; I11.0 Hypertensive heart disease with heart failure; Z89.421 Acquired absence of other right toe(s); Z95.0 Presence of cardiac pacemaker
CPT/HCPCS: 36416; 80048; 82565; 85014; 85018; 85025; 85049